=== PATIENT | male | born 1940 | race Caucasian/White ===

== ENCOUNTER 2018-05-08 13:00 | Outpatient (RCR) | payer OTHER, SELFPAY ==
[2018-04-10 13:38] VITALS: BP 120/80; BP 140/72; BP 140/78
--- NOTE | 2018-04-10 17:37 | PT.OIE ---
Current Diagnoses Other intervertebral disc degeneration, lumbar region (04/10/18) Low back pain (04/10/18) Past Medical History (Last Reviewed 12/19/17 @ 16:33 by Ramiro Upton MD) Benign prostatic hyperplasia (Acute) Coronary artery disease (Acute) Hyperlipidemia (Acute) Past Surgical History (Last Reviewed 12/19/17 @ 16:33 by Ramiro Upton MD) History of colonoscopy (Acute) History of heart bypass surgery (Acute ~2000) History of tonsillectomy (Acute) History of tonsillectomy (Resolved ~1945) Provider Visit Care Team Role Provider Type Saroj Malik MD Attending Provider Physician Family Provider Primary Care Provider Specialty: Internal Medicine Address: [address] [place] [address], [facility] Email: Physical Therapy Initial Evaluation PT-OP-A Visit Information Start: 04/06/18 16:07 Freq: Status: Active Protocol: Document 04/10/18 13:38 LRN (Rec: 04/10/18 15:03 LRN [id number]) Out-Patient Physical Therapy Visit Information Visit Information Visit Type Initial Evaluation Visit Start Time 13:38 Visit Stop Time 14:26 Total Visit Minutes 48 Visit Number 1 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 Depression Random dizziness (typically with sit to stand) PTSD PT-OP-B Current Condition Start: 04/06/18 16:07 Freq: Status: Active Protocol: Document 04/10/18 13:38 LRN (Rec: 04/10/18 15:03 LRN [id number]) Current Condition History of Current Condition Onset Date Chronic back pain, worsening 6 months ago Current Complaints Back pain limiting ability to stand and walk. History of Current Condition LBP for years. 1st injury in 1962 lifting injury. Injury to cervical spine in early 60s. Has had PT at [facility] 3 years ago, working on abdominal strengthening. No significant change with therapy. Within the last year, can't walk as far as he wants. Lately, within the last 6 month has been getting harder to walk farther than 300 yards, but on good days can walk a 1 mile. Currently under a tremendous amount of stress. Several years ago could walk 2-3 miles a couple times a week. Prior Treatments and Tests MRI for neck and low back [address] Padilla in [place]. Future Testing and Treatments Planned None Treatment Goals Patient/Caregiver Goals Pt goal is to be able to walk more to decrease weight and to sleep better. Walk painfree (hasn't been painfree for many years). Prior Functional Status Baseline Function- ADL's Modified Independent Baseline Function- Mobility Independent Baseline Function- Gait Sometimes limps due to L knee dysfunction sometimes. Baseline Function- Recreation/Hobbies Reads. Fishing off the beach. Sedentary. Baseline Function- Other Needs assist to get socks on. Current Functional Impairments (Reported) Functional Limitations- ADL's Can't bend over to put socks on. Functional Limitations- Mobility/Gait Walking 500 yards to maximum of 1 mile (on a good day). 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 Has an abdominal hernia. Admittedly under a lot of stress. CAD PT-OP-C Subjective Start: 04/06/18 16:07 Freq: Status: Active Protocol: Document 04/10/18 13:38 LRN (Rec: 04/10/18 15:03 LRN [id number]) Patient Questionnaires Oswestry Low Back Index Oswestry Score 22 Oswestry Impairment 20 to 39% Impaired (Score 20- 39) OP-PT Pain Assessment Pain Assessment Grid Paper Pain Assessment Grid Completed Yes Location Low back Pain Location Details Lumbar and upper Sacral Region Intensity 6 Scale Used Numeric (1 - 10) Description Aching Variations/Patterns Pain variable rating 1-6/10. Pain Aggravating Factors Standing Walking Bending Pain Alleviating Factors Sitting Rest Patient Stated Pain Goal Eliminate pain PT-OP-F Manual Assessment Start: 04/06/18 16:07 Freq: Status: Active Protocol: Document 04/10/18 13:38 LRN (Rec: 04/10/18 15:03 LRN [id number]) Manual Assessments Soft Tissue Assessment Soft Tissue Mobility Assessment Decreased mobility in low back Joint Mobility Assessment Joint Mobility Assessment Decreased lumbar mobility and hip mobility. PT-OP-H Neuro Start: 04/06/18 16:07 Freq: Status: Active Protocol: Document 04/10/18 13:38 LRN (Rec: 04/10/18 15:03 LRN [id number]) Sensation Evaluation Gross Sensation Gross Sensation WNL Deep Tendon Reflex & Clonus Assessment Deep Tendon Reflex Kanu Patellar & Achilles Deep Tendon Reflex 2+ Normal Vital Signs Blood Pressure Standing Blood Pressure (90/60-120/80 mmHg) 120/80 Blood Pressure Source Manual Cuff Right Upper Extremity Sitting Blood Pressure (90/60-120/80 mmHg) 140/72 H Blood Pressure Source Manual Cuff Right Upper Extremity Supine Blood Pressure (90/60-120/80 mmHg) 140/78 H Blood Pressure Source Manual Cuff Right Upper Extremity PT-OP-J Posture/Palpation/Skin Start: 04/06/18 16:07 Freq: Status: Active Protocol: Document 04/10/18 13:38 LRN (Rec: 04/10/18 15:03 LRN [id number]) Posture Evaluation Comments Posture Comments Standing Posture: Forward head, increased kyphosis and lordosis, anterior tilt of pelvis, moderate protruding abdomen. Pelvic R rotation, mildly elevated R shoulder. PT-OP-K Range of Motion Start: 04/06/18 16:07 Freq: Status: Active Protocol: Document 04/10/18 13:38 LRN (Rec: 04/10/18 15:03 LRN [id number]) Lumbar Spine Range of Motion Lumbar Spine Active Degrees Testing Position Standing Flexion 30 Extension 10 Lateral Flexion Left 13 Lateral Flexion Right 7 ROM Limitations Soft Tissue Tightness Pain Comments Hip flexion is 15 deg's with trunk flexion Hip extension is 5 deg's with trunk extension Hip Goniometric Range of Motion Hip Measured in Degrees Right Passive Hip ROM WFL No Straight Leg Raise 60 Internal Rotation 10 External Rotation 50 Left Passive Hip ROM WFL No Straight Leg Raise 55 Internal Rotation 10 External Rotation 60 PT-OP-M Strength Start: 04/06/18 16:07 Freq: Status: Active Protocol: Document 04/10/18 13:38 LRN (Rec: 04/10/18 15:03 LRN [id number]) Hip Strength Hip Manual Muscle Testing Right Flexion (L2) 5 Normal Left Flexion (L2) 5 Normal PT-OP-T Assessment and Plan Start: 04/06/18 16:07 Freq: Status: Active Protocol: Document 04/10/18 13:38 LRN (Rec: 04/10/18 15:03 LRN [id number]) Physical Therapy Assessment Rehab Potential Rehabilitation Potential Good Evaluation Complexity Number of Personal Factors/Comorbidities 3 or More Number of Body Systems Impaired 3 Clinical Presentation at Evaluation Evolving Impairments Impairments Activity Tolerance Gait Pain Posture ROM Soft Tissue Mobility Strength Other Concerns Barriers to Rehabilitation Non-union of sternum since 2001 Cardiac Bypass surgery. Depression. Prior physical therapy 3 yrs ago with no significant change in pain post therapy. Goals Decreased standing and walking Impairment 6/10 pain limits standing to make meals and walking his pet > 1/4 mile Short Term Goal (STG) Pt will be able to tolerate standing and making meals with compensatory strategy's. STG Duration 05/11/18 Associate Director Career Services Goal (LTG) Pt will be able to walk his pet 2x/week for greater than 1 /[address] with pain no greater than 3/10. LTG Duration 06/13/18 Decreased pain Impairment Pain limiting walking and standing tolerance, rated 1-6/ 10 Associate Director Career Services Goal (LTG) Decreased pt's pain at its worst by 50%. LTG Duration 06/13/18 Self care Impairment Pt lacks independent self assisted exercise program. Associate Director Career Services Goal (LTG) Pt will be independent with a self care HEP. LTG Duration 06/13/18 Assessment Summary Assessment Pt presents with a mechanical and soft tissue dysfunction of the lumbar spine and bilateral hip joints. He has a visible protrusion at the midline of the rectus abdominus indicating a possible abdominal hernia; therefore stabilization of the core will be more challenging . Limitation in hip mobility may be hindering his ability to walk and prolonging his low back rehabilitation. The pt demonstrates orthostatic hypotension with sit to stand, but not with supine to sit transfers; therefore cardiac conditioning is recommended. A referral to cardiac rehab would be appropriate. The pt will benefit from skilled physical therapy to improve hip and lumbar mobility, stengthen the core and improve pelvic and lumbar stability and decreased back pain with standing and gait. Physical Therapy Plan Frequency and Duration Frequency of Treatment 2x/Week Plan of Care Start Date 04/10/18 Plan of Care End Date 06/15/18 Therapeutic Interventions Therapeutic Interventions Aquatic Therapy Balance Training Gait Training Home Exercise Program Joint Mobilizations Manual Therapy Neuromuscular Re-education Patient/Caregiver Education Self-Care/Home Management Soft Tissue Mobilization Taping Therapeutic Activities Therapeutic Exercises Modalities Cold Pack/Ice Massage Electric Stimulation Hot Packs Ultrasound Other Referrals/Consults Referrals/Consults Recommended Cardiac rehabilitation Next Visit Focus/Plan Next Note Type Treatment Note Next Visit Plan Initiate gait on TM and progress per lumbar pain tolerance, start mobility program of low back and hips with precaution of his non- union of sternum; therefore limiting ex's in prone. Check hip strength and tolerance to core strengthening. End with STM or modalities for pain management. Might try manual lumbar traction for intermittent pain relief.
--- NOTE | 2018-04-12 14:55 | PT.OTN ---
Current Diagnoses Other intervertebral disc degeneration, lumbar region (04/12/18) Low back pain (04/12/18) Physical Therapy Treatment Note PT-OP-A Visit Information Start: 04/06/18 16:07 Freq: Status: Active Protocol: Document 04/12/18 13:45 AMB (Rec: 04/12/18 14:54 AMB [email or web address]) Out-Patient Physical Therapy Visit Information Visit Information Visit Type Treatment Note Visit Start Time 13:45 Visit Stop Time 14:40 Total Visit Minutes 55 Visit Number 2 PT-OP-B Current Condition Start: 04/06/18 16:07 Freq: Status: Active Protocol: Document 04/10/18 13:38 LRN (Rec: 04/10/18 15:03 LRN [id number]) Current Condition History of Current Condition Onset Date Chronic back pain, worsening 6 months ago Current Complaints Back pain limiting ability to stand and walk. History of Current Condition LBP for years. 1st injury in 2 lifting injury. Injury to cervical spine in early 's. Has had PT at [facility] 3 years ago, working on abdominal strengthening. No significant change with therapy. Within the last year, can't walk as far as he wants. Lately, within the last 6 month has been getting harder to walk farther than 300 yards, but on good days can walk a 1 mile. Currently under a tremendous amount of stress. Several years ago could walk 2-3 miles a couple times a week. Prior Treatments and Tests MRI for neck and low back [address] Padilla in [place]. Future Testing and Treatments Planned None Treatment Goals Patient/Caregiver Goals Pt goal is to be able to walk more to decrease weight and to sleep better. Walk painfree (hasn't been painfree for many years). Prior Functional Status Baseline Function- ADL's Modified Independent Baseline Function- Mobility Independent Baseline Function- Gait Sometimes limps due to L knee dysfunction sometimes. Baseline Function- Recreation/Hobbies Reads. Fishing off the beach. Sedentary. Baseline Function- Other Needs assist to get socks on. Current Functional Impairments (Reported) Functional Limitations- ADL's Can't bend over to put socks on. Functional Limitations- Mobility/Gait Walking 500 yards to maximum of 1 mile (on a good day). 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 Has an abdominal hernia. Admittedly under a lot of stress. CAD PT-OP-C Subjective Start: 04/06/18 16:07 Freq: Status: Active Protocol: Document 04/12/18 13:45 AMB (Rec: 04/12/18 14:54 AMB [id number]) OP-PT Subjective Patient Comments Patient Comments Lars states that some days are better than others, so far today is a good day, no back pain yet to speak of. PT-OP-F Manual Assessment Start: 04/06/18 16:07 Freq: Status: Active Protocol: Document 04/10/18 13:38 LRN (Rec: 04/10/18 15:03 LRN [id number]) Manual Assessments Soft Tissue Assessment Soft Tissue Mobility Assessment Decreased mobility in low back Joint Mobility Assessment Joint Mobility Assessment Decreased lumbar mobility and hip mobility. PT-OP-H Neuro Start: 04/06/18 16:07 Freq: Status: Active Protocol: Document 04/10/18 13:38 LRN (Rec: 04/10/18 15:03 LRN [id number]) Sensation Evaluation Gross Sensation Gross Sensation WNL Deep Tendon Reflex & Clonus Assessment Deep Tendon Reflex Kanu Patellar & Achilles Deep Tendon Reflex 2+ Normal Vital Signs Blood Pressure Standing Blood Pressure (90/60-120/80 mmHg) 120/80 Blood Pressure Source Manual Cuff Right Upper Extremity Sitting Blood Pressure (90/60-120/80 mmHg) 140/72 H Blood Pressure Source Manual Cuff Right Upper Extremity Supine Blood Pressure (90/60-120/80 mmHg) 140/78 H Blood Pressure Source Manual Cuff Right Upper Extremity PT-OP-J Posture/Palpation/Skin Start: 04/06/18 16:07 Freq: Status: Active Protocol: Document 04/10/18 13:38 LRN (Rec: 04/10/18 15:03 LRN [id number]) Posture Evaluation Comments Posture Comments Standing Posture: Forward head, increased kyphosis and lordosis, anterior tilt of pelvis, moderate protruding abdomen. Pelvic R rotation, mildly elevated R shoulder. PT-OP-K Range of Motion Start: 04/06/18 16:07 Freq: Status: Active Protocol: Document 04/10/18 13:38 LRN (Rec: 04/10/18 15:03 LRN [id number]) Lumbar Spine Range of Motion Lumbar Spine Active Degrees Testing Position Standing Flexion 30 Extension 10 Lateral Flexion Left 13 Lateral Flexion Right 7 ROM Limitations Soft Tissue Tightness Pain Comments Hip flexion is 15 deg's with trunk flexion Hip extension is 5 deg's with trunk extension Hip Goniometric Range of Motion Hip Measured in Degrees Right Passive Hip ROM WFL No Straight Leg Raise 60 Internal Rotation 10 External Rotation 50 Left Passive Hip ROM WFL No Straight Leg Raise 55 Internal Rotation 10 External Rotation 60 PT-OP-M Strength Start: 04/06/18 16:07 Freq: Status: Active Protocol: Document 04/10/18 13:38 LRN (Rec: 04/10/18 15:03 LRN [id number]) Hip Strength Hip Manual Muscle Testing Right Flexion (L2) 5 Normal Left Flexion (L2) 5 Normal PT-OP-Q Treatments Start: 04/06/18 16:07 Freq: Status: Active Protocol: Document 04/12/18 13:45 AMB (Rec: 04/12/18 14:54 AMB [email or web address]) Cardio Equipment Treadmill Duration (Minutes) 5 Speed 2.0 Incline 0 Therapeutic Exercises Supine Exercises 5 Supine Exercise Name SLR Reps/Minutes 2x5 Comments with TrA stabilization 4 Supine Exercise Name TrA stabilization Reps/Minutes 2x10 Comments with supine march 3 Supine Exercise Name piriformis stretch Reps/Minutes 30x2 2 Supine Exercise Name hip flexor stretch Reps/Minutes 30x2 1 Supine Exercise Name trunk rotation Reps/Minutes 30x2 Sidelying Exercises 1 Sidelying Exercise Name clamshell Reps/Minutes 2x10 Manual Therapy Treatment Soft Tissue Mobilization 1 Body Location L QL, L lumbar paraspinals Mobilization Type Myofascial Release Sustained Pressure Intensity/Depth Moderate Body Position Sidelying PT-OP-R Modalities Start: 04/06/18 16:07 Freq: Status: Active Protocol: Document 04/12/18 13:45 AMB (Rec: 04/12/18 14:55 AMB [id number]) Hot Pack/Cold Pack Treatment Hot Pack Location low back Patient Position Hooklying Treatment Duration (minutes) 15 Patient Tolerance Good PT-OP-T Assessment and Plan Start: 04/06/18 16:07 Freq: Status: Active Protocol: Document 04/12/18 13:45 AMB (Rec: 04/12/18 14:54 AMB [id number]) Physical Therapy Assessment Assessment Summary Assessment Pt tolerated exercises well. Did have significant tightness at L hip flexor. Tenderness at L paraspinals and L QL. Began education in standing weightshifting to avoid cramping. Began education in self myofascial release of QL with theracane or tennis ball. Physical Therapy Plan Next Visit Focus/Plan Next Note Type Treatment Note Next Visit Plan Progress treadmill, core stability, hip flexibility program. Continue with STM, can add in modalities. Can try manual lumbar traction.
--- NOTE | 2018-04-16 15:50 | PT.OTN ---
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 Depression Random dizziness (typically with sit to stand) PTSD PT-OP-B Current Condition Start: 04/06/18 16:07 Freq: Status: Active Protocol: Document 04/10/18 13:38 LRN (Rec: 04/10/18 15:03 LRN [id number]) Current Condition History of Current Condition Onset Date Chronic back pain, worsening 6 months ago Current Complaints Back pain limiting ability to stand and walk. History of Current Condition LBP for years. 1st injury in 1962 lifting injury. Injury to cervical spine in early 's. Has had PT at [facility] 3 years ago, working on abdominal strengthening. No significant change with therapy. Within the last year, can't walk as far as he wants. Lately, within the last 6 month has been getting harder to walk farther than 300 yards, but on good days can walk a 1 mile. Currently under a tremendous amount of stress. Several years ago could walk 2-3 miles a couple times a week. Prior Treatments and Tests MRI for neck and low back [address] Padilla in [place]. Future Testing and Treatments Planned None Treatment Goals Patient/Caregiver Goals Pt goal is to be able to walk more to decrease weight and to sleep better. Walk painfree (hasn't been painfree for many years). Prior Functional Status Baseline Function- ADL's Modified Independent Baseline Function- Mobility Independent Baseline Function- Gait Sometimes limps due to L knee dysfunction sometimes. Baseline Function- Recreation/Hobbies Reads. Fishing off the beach. Sedentary. Baseline Function- Other Needs assist to get socks on. Current Functional Impairments (Reported) Functional Limitations- ADL's Can't bend over to put socks on. Functional Limitations- Mobility/Gait Walking 500 yards to maximum of 1 mile (on a good day). 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 Has an abdominal hernia. Admittedly under a lot of stress. CAD PT-OP-C Subjective Start: 04/06/18 16:07 Freq: Status: Active Protocol: Document 04/16/18 09:51 LRN (Rec: 04/16/18 10:35 LRN [id number]) OP-PT Subjective Patient Comments Patient Comments Didn't have time to do ex's. Drove all day yesterday. PT-OP-F Manual Assessment Start: 04/06/18 16:07 Freq: Status: Active Protocol: Document 04/10/18 13:38 LRN (Rec: 04/10/18 15:03 LRN [id number]) Manual Assessments Soft Tissue Assessment Soft Tissue Mobility Assessment Decreased mobility in low back Joint Mobility Assessment Joint Mobility Assessment Decreased lumbar mobility and hip mobility. PT-OP-H Neuro Start: 04/06/18 16:07 Freq: Status: Active Protocol: Document 04/10/18 13:38 LRN (Rec: 04/10/18 15:03 LRN [id number]) Sensation Evaluation Gross Sensation Gross Sensation WNL Deep Tendon Reflex & Clonus Assessment Deep Tendon Reflex Kanu Patellar & Achilles Deep Tendon Reflex 2+ Normal Vital Signs Blood Pressure Standing Blood Pressure (90/60-120/80 mmHg) 120/80 Blood Pressure Source Manual Cuff Right Upper Extremity Sitting Blood Pressure (90/60-120/80 mmHg) 140/72 H Blood Pressure Source Manual Cuff Right Upper Extremity Supine Blood Pressure (90/60-120/80 mmHg) 140/78 H Blood Pressure Source Manual Cuff Right Upper Extremity PT-OP-J Posture/Palpation/Skin Start: 04/06/18 16:07 Freq: Status: Active Protocol: Document 04/10/18 13:38 LRN (Rec: 04/10/18 15:03 LRN [id number]) Posture Evaluation Comments Posture Comments Standing Posture: Forward head, increased kyphosis and lordosis, anterior tilt of pelvis, moderate protruding abdomen. Pelvic R rotation, mildly elevated R shoulder. PT-OP-K Range of Motion Start: 04/06/18 16:07 Freq: Status: Active Protocol: Document 04/10/18 13:38 LRN (Rec: 04/10/18 15:03 LRN [id number]) Lumbar Spine Range of Motion Lumbar Spine Active Degrees Testing Position Standing Flexion 30 Extension 10 Lateral Flexion Left 13 Lateral Flexion Right 7 ROM Limitations Soft Tissue Tightness Pain Comments Hip flexion is 15 deg's with trunk flexion Hip extension is 5 deg's with trunk extension Hip Goniometric Range of Motion Hip Measured in Degrees Right Passive Hip ROM WFL No Straight Leg Raise 60 Internal Rotation 10 External Rotation 50 Left Passive Hip ROM WFL No Straight Leg Raise 55 Internal Rotation 10 External Rotation 60 PT-OP-M Strength Start: 04/06/18 16:07 Freq: Status: Active Protocol: Document 04/10/18 13:38 LRN (Rec: 04/10/18 15:03 LRN [id number]) Hip Strength Hip Manual Muscle Testing Right Flexion (L2) 5 Normal Left Flexion (L2) 5 Normal PT-OP-Q Treatments Start: 04/06/18 16:07 Freq: Status: Active Protocol: Document 04/16/18 09:51 LRN (Rec: 04/16/18 10:35 LRN [id number]) Cardio Equipment Treadmill Duration (Minutes) 6 Speed 2.0 Incline 0 Therapeutic Exercises Supine Exercises Lateral hip Stretch Supine Exercise Name Lateral Hip stretch Side bilateral Reps/Minutes 60 x 1 Comments Extra time for training 5 Supine Exercise Name SLR Reps/Minutes 2x5 Comments with TrA stabilization 4 Supine Exercise Name TrA and abdominal stabilization Comments Training for TrA and abdominal holding 3 Supine Exercise Name piriformis stretch Reps/Minutes 60x2 2 Supine Exercise Name hip flexor stretch Side bilateral Reps/Minutes 7' Comments Each 60stretch followed by 10 reps active hip ext 1 Supine Exercise Name trunk rotation Reps/Minutes 30x2 Manual Therapy Treatment Soft Tissue Mobilization Intercostals of ribs Body Location Upper intercostals Intensity/Depth Deep Body Position Supine Neuro Re-Education Treatment Movement Re-Education Movement Re-education Activities Breathing for upper thoracic excursion. Self-Care/Home Management Treatment Education Patient Education Home Exercise Program Activities Self-Care/Home Management Activities Issued and reviewed HEP: Stretch in supine for Piriformis, Lateral hip & sitting hip ER PT-OP-R Modalities Start: 04/06/18 16:07 Freq: Status: Active Protocol: Document 04/12/18 13:45 AMB (Rec: 04/12/18 14:55 AMB [id number]) Hot Pack/Cold Pack Treatment Hot Pack Location low back Patient Position Hooklying Treatment Duration (minutes) 15 Patient Tolerance Good PT-OP-T Assessment and Plan Start: 04/06/18 16:07 Freq: Status: Active Protocol: Document 04/16/18 09:51 LRN (Rec: 04/16/18 10:35 LRN [id number]) Physical Therapy Assessment Goals Decreased standing and walking Impairment 6/10 LBP limits standing to make meals and walking his pet > 1/4 mile Short Term Goal (STG) Pt will be able to tolerate standing and making meals with compensatory strategy's. STG Duration 05/11/18 Regulatory Intern Goal (LTG) Pt will be able to walk his pet 2x/week for greater than 1 /[address] with LBP no greater than 3/10. LTG Duration 06/13/18 Decreased pain Impairment Low Back Pain limiting walking and standing tolerance, rated 1-6/10 Regulatory Intern Goal (LTG) Decreased pt's LBP at its worst by 50% (to 3/10). LTG Duration 06/13/18 Self care Impairment Pt lacks independent self snf exercise program. Senior Living Goal (LTG) Pt will be independent with a self care HEP. LTG Duration 06/13/18 Assessment Summary Assessment Fair recall of ex's, review needed. No mobility of upper thoracic ribcage with breathing. Minimal abdominal stabilization noted. Significant tightness at L hip flexor. Tenderness at L paraspinals and L QL. Physical Therapy Plan Frequency and Duration Frequency of Treatment 2x/Week Plan of Care Start Date 04/10/18 Plan of Care End Date 06/15/18 Next Visit Focus/Plan Next Note Type Treatment Note Next Visit Plan Began education in standing weightshifting to avoid cramping. Began education in self myofascial release of QL with theracane or tennis ball. Progress treadmill, core stability, hip flexibility program. Continue with STM, can add in modalities. Can try manual lumbar traction.
--- NOTE | 2018-04-20 15:02 | PT.OTN ---
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 Depression Random dizziness (typically with sit to stand) PTSD PT-OP-B Current Condition Start: 04/06/18 16:07 Freq: Status: Active Protocol: Document 04/10/18 13:38 LRN (Rec: 04/10/18 15:03 LRN [id number]) Current Condition History of Current Condition Onset Date Chronic back pain, worsening 6 months ago Current Complaints Back pain limiting ability to stand and walk. History of Current Condition LBP for years. 1st injury in 1962 lifting injury. Injury to cervical spine in early 's. Has had PT at [facility] 3 years ago, working on abdominal strengthening. No significant change with therapy. Within the last year, can't walk as far as he wants. Lately, within the last 6 month has been getting harder to walk farther than 300 yards, but on good days can walk a 1 mile. Currently under a tremendous amount of stress. Several years ago could walk 2-3 miles a couple times a week. Prior Treatments and Tests MRI for neck and low back [address] Padilla in [place]. Future Testing and Treatments Planned None Treatment Goals Patient/Caregiver Goals Pt goal is to be able to walk more to decrease weight and to sleep better. Walk painfree (hasn't been painfree for many years). Prior Functional Status Baseline Function- ADL's Modified Independent Baseline Function- Mobility Independent Baseline Function- Gait Sometimes limps due to L knee dysfunction sometimes. Baseline Function- Recreation/Hobbies Reads. Fishing off the beach. Sedentary. Baseline Function- Other Needs assist to get socks on. Current Functional Impairments (Reported) Functional Limitations- ADL's Can't bend over to put socks on. Functional Limitations- Mobility/Gait Walking 500 yards to maximum of 1 mile (on a good day). 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 Has an abdominal hernia. Admittedly under a lot of stress. CAD PT-OP-C Subjective Start: 04/06/18 16:07 Freq: Status: Active Protocol: Document 04/20/18 10:36 LRN (Rec: 04/20/18 11:21 LRN [id number]) OP-PT Subjective Patient Comments Patient Comments Had some difficulty with home ex's, has questions. One caused excruciating pain. States his stomach (abdominal hernia) bothers him and he'd like to get it fixed if it is a problem. OP-PT Pain Assessment Pain Assessment Grid Paper Pain Assessment Grid Completed No Location Low back Pain Location Details Lumbar and upper Sacral Region Intensity 3 Scale Used Numeric (1 - 10) Description Aching Pain Alleviating Factors Sitting PT-OP-F Manual Assessment Start: 04/06/18 16:07 Freq: Status: Active Protocol: Document 04/10/18 13:38 LRN (Rec: 04/10/18 15:03 LRN [id number]) Manual Assessments Soft Tissue Assessment Soft Tissue Mobility Assessment Decreased mobility in low back Joint Mobility Assessment Joint Mobility Assessment Decreased lumbar mobility and hip mobility. PT-OP-H Neuro Start: 04/06/18 16:07 Freq: Status: Active Protocol: Document 04/10/18 13:38 LRN (Rec: 04/10/18 15:03 LRN [id number]) Sensation Evaluation Gross Sensation Gross Sensation WNL Deep Tendon Reflex & Clonus Assessment Deep Tendon Reflex Kanu Patellar & Achilles Deep Tendon Reflex 2+ Normal Vital Signs Blood Pressure Standing Blood Pressure (90/60-120/80 mmHg) 120/80 Blood Pressure Source Manual Cuff Right Upper Extremity Sitting Blood Pressure (90/60-120/80 mmHg) 140/72 H Blood Pressure Source Manual Cuff Right Upper Extremity Supine Blood Pressure (90/60-120/80 mmHg) 140/78 H Blood Pressure Source Manual Cuff Right Upper Extremity PT-OP-J Posture/Palpation/Skin Start: 04/06/18 16:07 Freq: Status: Active Protocol: Document 04/10/18 13:38 LRN (Rec: 04/10/18 15:03 LRN [id number]) Posture Evaluation Comments Posture Comments Standing Posture: Forward head, increased kyphosis and lordosis, anterior tilt of pelvis, moderate protruding abdomen. Pelvic R rotation, mildly elevated R shoulder. PT-OP-K Range of Motion Start: 04/06/18 16:07 Freq: Status: Active Protocol: Document 04/10/18 13:38 LRN (Rec: 04/10/18 15:03 LRN [id number]) Lumbar Spine Range of Motion Lumbar Spine Active Degrees Testing Position Standing Flexion 30 Extension 10 Lateral Flexion Left 13 Lateral Flexion Right 7 ROM Limitations Soft Tissue Tightness Pain Comments Hip flexion is 15 deg's with trunk flexion Hip extension is 5 deg's with trunk extension Hip Goniometric Range of Motion Hip Measured in Degrees Right Passive Hip ROM WFL No Straight Leg Raise 60 Internal Rotation 10 External Rotation 50 Left Passive Hip ROM WFL No Straight Leg Raise 55 Internal Rotation 10 External Rotation 60 PT-OP-M Strength Start: 04/06/18 16:07 Freq: Status: Active Protocol: Document 04/10/18 13:38 LRN (Rec: 04/10/18 15:03 LRN [id number]) Hip Strength Hip Manual Muscle Testing Right Flexion (L2) 5 Normal Left Flexion (L2) 5 Normal PT-OP-Q Treatments Start: 04/06/18 16:07 Freq: Status: Active Protocol: Document 04/20/18 10:36 LRN (Rec: 04/20/18 11:21 LRN [id number]) Cardio Equipment Treadmill Duration (Minutes) 7 Speed 2.0 Incline 0 Therapeutic Exercises Supine Exercises Lateral hip Stretch Supine Exercise Name Lateral Hip stretch Side bilateral Reps/Minutes 60 x 1 Comments Extra time for review 5 Supine Exercise Name Heel slides Reps/Minutes 10x Comments Neutral spine stabilization 4 Supine Exercise Name TrA and abdominal stabilization Comments Training for TrA and abdominal holding 3 Supine Exercise Name piriformis stretch Reps/Minutes 60x2 2 Supine Exercise Name hip flexor stretch Side bilateral Reps/Minutes 7' Comments Each 60stretch followed by 10 reps active hip ext 1 Supine Exercise Name trunk rotation Reps/Minutes 30x2 Comments 10-20 deg's rotation only Sitting Exercises Hip ER stretch Sitting Exercise Name Hip ER stretch Side bilateral Reps/Minutes 3' Self-Care/Home Management Treatment Activities Self-Care/Home Management Activities Reviewed and modified HEP: LTR , supine single leg Piriformis PT-OP-R Modalities Start: 04/06/18 16:07 Freq: Status: Active Protocol: Document 04/12/18 13:45 AMB (Rec: 04/12/18 14:55 AMB [id number]) Hot Pack/Cold Pack Treatment Hot Pack Location low back Patient Position Hooklying Treatment Duration (minutes) 15 Patient Tolerance Good PT-OP-T Assessment and Plan Start: 04/06/18 16:07 Freq: Status: Active Protocol: Document 04/20/18 10:36 LRN (Rec: 04/20/18 11:21 LRN [id number]) Physical Therapy Assessment Assessment Summary Assessment A little better recall of ex's , but review needed. Pt moved too far with LTR ex causing L LBP and did not relax the L hip with ER oblique stretch; therefore causing hip muscle cramp. Needs mobility of upper thoracic ribcage with breathing. Improved awareness of how to stabilize in neutral spine. Tenderness at L paraspinals and L QL not assessed. Physical Therapy Plan Frequency and Duration Frequency of Treatment 2x/Week Plan of Care Start Date 04/10/18 Plan of Care End Date 06/15/18 Next Visit Focus/Plan Next Note Type Treatment Note Next Visit Plan Next visit if no further questions of HEP, began education in standing weightshifting to avoid cramping. Began education in self myofascial release of QL with theracane or tennis ball. Progress treadmill, core stability, hip flexibility program. Continue with STM, can add in modalities. Can try manual lumbar traction.
--- NOTE | 2018-04-23 11:53 | PT.OTN ---
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 Depression Random dizziness (typically with sit to stand) PTSD PT-OP-B Current Condition Start: 04/06/18 16:07 Freq: Status: Active Protocol: Document 04/10/18 13:38 LRN (Rec: 04/10/18 15:03 LRN [id number]) Current Condition History of Current Condition Onset Date Chronic back pain, worsening 6 months ago Current Complaints Back pain limiting ability to stand and walk. History of Current Condition LBP for years. 1st injury in 1962 lifting injury. Injury to cervical spine in early 's. Has had PT at [facility] 3 years ago, working on abdominal strengthening. No significant change with therapy. Within the last year, can't walk as far as he wants. Lately, within the last 6 month has been getting harder to walk farther than 300 yards, but on good days can walk a 1 mile. Currently under a tremendous amount of stress. Several years ago could walk 2-3 miles a couple times a week. Prior Treatments and Tests MRI for neck and low back [address] Padilla in [place]. Future Testing and Treatments Planned None Treatment Goals Patient/Caregiver Goals Pt goal is to be able to walk more to decrease weight and to sleep better. Walk painfree (hasn't been painfree for many years). Prior Functional Status Baseline Function- ADL's Modified Independent Baseline Function- Mobility Independent Baseline Function- Gait Sometimes limps due to L knee dysfunction sometimes. Baseline Function- Recreation/Hobbies Reads. Fishing off the beach. Sedentary. Baseline Function- Other Needs assist to get socks on. Current Functional Impairments (Reported) Functional Limitations- ADL's Can't bend over to put socks on. Functional Limitations- Mobility/Gait Walking 500 yards to maximum of 1 mile (on a good day). 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 Has an abdominal hernia. Admittedly under a lot of stress. CAD PT-OP-C Subjective Start: 04/06/18 16:07 Freq: Status: Active Protocol: Document 04/23/18 10:37 LRN (Rec: 04/23/18 11:36 LRN [id number]) OP-PT Subjective Patient Comments Patient Comments Walked 1/4 mile, wearing a low back belt over the weekend, both days. PT-OP-F Manual Assessment Start: 04/06/18 16:07 Freq: Status: Active Protocol: Document 04/10/18 13:38 LRN (Rec: 04/10/18 15:03 LRN [id number]) Manual Assessments Soft Tissue Assessment Soft Tissue Mobility Assessment Decreased mobility in low back Joint Mobility Assessment Joint Mobility Assessment Decreased lumbar mobility and hip mobility. PT-OP-H Neuro Start: 04/06/18 16:07 Freq: Status: Active Protocol: Document 04/10/18 13:38 LRN (Rec: 04/10/18 15:03 LRN [id number]) Sensation Evaluation Gross Sensation Gross Sensation WNL Deep Tendon Reflex & Clonus Assessment Deep Tendon Reflex Kanu Patellar & Achilles Deep Tendon Reflex 2+ Normal Vital Signs Blood Pressure Standing Blood Pressure (90/60-120/80 mmHg) 120/80 Blood Pressure Source Manual Cuff Right Upper Extremity Sitting Blood Pressure (90/60-120/80 mmHg) 140/72 H Blood Pressure Source Manual Cuff Right Upper Extremity Supine Blood Pressure (90/60-120/80 mmHg) 140/78 H Blood Pressure Source Manual Cuff Right Upper Extremity PT-OP-J Posture/Palpation/Skin Start: 04/06/18 16:07 Freq: Status: Active Protocol: Document 04/10/18 13:38 LRN (Rec: 04/10/18 15:03 LRN [id number]) Posture Evaluation Comments Posture Comments Standing Posture: Forward head, increased kyphosis and lordosis, anterior tilt of pelvis, moderate protruding abdomen. Pelvic R rotation, mildly elevated R shoulder. PT-OP-K Range of Motion Start: 04/06/18 16:07 Freq: Status: Active Protocol: Document 04/10/18 13:38 LRN (Rec: 04/10/18 15:03 LRN [id number]) Lumbar Spine Range of Motion Lumbar Spine Active Degrees Testing Position Standing Flexion 30 Extension 10 Lateral Flexion Left 13 Lateral Flexion Right 7 ROM Limitations Soft Tissue Tightness Pain Comments Hip flexion is 15 deg's with trunk flexion Hip extension is 5 deg's with trunk extension Hip Goniometric Range of Motion Hip Measured in Degrees Right Passive Hip ROM WFL No Straight Leg Raise 60 Internal Rotation 10 External Rotation 50 Left Passive Hip ROM WFL No Straight Leg Raise 55 Internal Rotation 10 External Rotation 60 PT-OP-M Strength Start: 04/06/18 16:07 Freq: Status: Active Protocol: Document 04/10/18 13:38 LRN (Rec: 04/10/18 15:03 LRN [id number]) Hip Strength Hip Manual Muscle Testing Right Flexion (L2) 5 Normal Left Flexion (L2) 5 Normal PT-OP-Q Treatments Start: 04/06/18 16:07 Freq: Status: Active Protocol: Document 04/23/18 10:37 LRN (Rec: 04/23/18 11:36 LRN [id number]) Cardio Equipment Treadmill Duration (Minutes) 9 Speed 2.0 Incline 0 Therapeutic Exercises Supine Exercises Lateral hip Stretch Supine Exercise Name Lateral Hip stretch Side bilateral Reps/Minutes 60 x 1 5 Supine Exercise Name Heel slides Reps/Minutes 10x Comments Neutral spine stabilization 4 Supine Exercise Name TrA and abdominal stab with hands/knees push Equipment Used Red T-Ball Reps/Minutes 7' Comments Pt unable to identify a TA contraction after much training 3 Supine Exercise Name piriformis stretch Reps/Minutes 60x2 2 Supine Exercise Name hip flexor stretch Side bilateral Reps/Minutes 4' Comments Each 60stretch followed by 10 reps active hip ext Sitting Exercises TA strengthening Sitting Exercise Name Isometric strengthening (knees push into table) Side bilateral Reps/Minutes 5' Therapeutic Activity Therapeutic Activity Supine <> Sit Name Transfer training sup<>sit Reps/Minutes 2' Self-Care/Home Management Treatment Education Other Education Pt education in how to identify an abdominal contraction vs abdominal bulging. Activities Self-Care/Home Management Activities I/S pt to do isometric TA tightening in sitting. PT-OP-R Modalities Start: 04/06/18 16:07 Freq: Status: Active Protocol: Document 04/12/18 13:45 AMB (Rec: 04/12/18 14:55 AMB [id number]) Hot Pack/Cold Pack Treatment Hot Pack Location low back Patient Position Hooklying Treatment Duration (minutes) 15 Patient Tolerance Good PT-OP-T Assessment and Plan Start: 04/06/18 16:07 Freq: Status: Active Protocol: Document 04/23/18 10:37 LRN (Rec: 04/23/18 11:36 LRN [id number]) Physical Therapy Assessment Goals Decreased standing and walking Impairment 6/10 LBP limits standing to make meals and walking his pet > 1/4 mile Short Term Goal (STG) Pt will be able to tolerate standing and making meals with compensatory strategy's. STG Duration 05/11/18 Clerk Travel Reservations Goal (LTG) Pt will be able to walk his pet 2x/week for greater than 1 /[address] with LBP no greater than 3/10. LTG Duration 06/13/18 Decreased pain Impairment Low Back Pain limiting walking and standing tolerance, rated 1-6/10 Residential Goal (LTG) Decreased pt's LBP at its worst by 50% (to 3/10). LTG Duration 06/13/18 Self care Impairment Pt lacks independent self usp exercise program. Residential Goal (LTG) Pt will be independent with a self care HEP. LTG Duration 06/13/18 Progress Towards Goals Progress Comments Pt tolerance to walking has improved per subjective report he is walking 1/4 mile for past 2 days. Assessment Summary Assessment Better recall of ex's, some review needed. Muscle cramp x 1 with stretch to L hip. Pt is more aware he needs to improve mobility of upper thoracic ribcage with breathing. Much improved awareness of how to stabilize in neutral spine. Tenderness at L paraspinals and L QL not assessed. Physical Therapy Plan Frequency and Duration Frequency of Treatment 2x/Week Plan of Care Start Date 04/10/18 Plan of Care End Date 06/15/18 Next Visit Focus/Plan Next Note Type Treatment Note Next Visit Plan Assess L Paraspinals & QL, began education in standing weightshifting to avoid cramping & in self myofascial release of QL with theracane or tennis ball. Progress treadmill to 10', progress core stability (add rotation with T-Band), continue hip flexibility (focus on hip ext & ER) program. Add STM if needed. Can try manual lumbar traction when back pain interferes with exercise tolerance.
--- NOTE | 2018-04-26 13:29 | PT.OTN ---
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 Depression Random dizziness (typically with sit to stand) PTSD PT-OP-B Current Condition Start: 04/06/18 16:07 Freq: Status: Active Protocol: Document 04/10/18 13:38 LRN (Rec: 04/10/18 15:03 LRN [id number]) Current Condition History of Current Condition Onset Date Chronic back pain, worsening 6 months ago Current Complaints Back pain limiting ability to stand and walk. History of Current Condition LBP for years. 1st injury in 1962 lifting injury. Injury to cervical spine in early 's. Has had PT at [facility] 3 years ago, working on abdominal strengthening. No significant change with therapy. Within the last year, can't walk as far as he wants. Lately, within the last 6 month has been getting harder to walk farther than 300 yards, but on good days can walk a 1 mile. Currently under a tremendous amount of stress. Several years ago could walk 2-3 miles a couple times a week. Prior Treatments and Tests MRI for neck and low back [address] Padilla in [place]. Future Testing and Treatments Planned None Treatment Goals Patient/Caregiver Goals Pt goal is to be able to walk more to decrease weight and to sleep better. Walk painfree (hasn't been painfree for many years). Prior Functional Status Baseline Function- ADL's Modified Independent Baseline Function- Mobility Independent Baseline Function- Gait Sometimes limps due to L knee dysfunction sometimes. Baseline Function- Recreation/Hobbies Reads. Fishing off the beach. Sedentary. Baseline Function- Other Needs assist to get socks on. Current Functional Impairments (Reported) Functional Limitations- ADL's Can't bend over to put socks on. Functional Limitations- Mobility/Gait Walking 500 yards to maximum of 1 mile (on a good day). 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 Has an abdominal hernia. Admittedly under a lot of stress. CAD PT-OP-C Subjective Start: 04/06/18 16:07 Freq: Status: Active Protocol: Document 04/26/18 10:38 LRN (Rec: 04/26/18 11:21 LRN [id number]) OP-PT Subjective Patient Comments Patient Comments Pain in the R low back ~L3 level and at TP location. Pain is deep and constant, if move just right it is sharp. Started [place] ( 20' up and back). PT-OP-F Manual Assessment Start: 04/06/18 16:07 Freq: Status: Active Protocol: Document 04/10/18 13:38 LRN (Rec: 04/10/18 15:03 LRN [id number]) Manual Assessments Soft Tissue Assessment Soft Tissue Mobility Assessment Decreased mobility in low back Joint Mobility Assessment Joint Mobility Assessment Decreased lumbar mobility and hip mobility. PT-OP-H Neuro Start: 04/06/18 16:07 Freq: Status: Active Protocol: Document 04/10/18 13:38 LRN (Rec: 04/10/18 15:03 LRN [id number]) Sensation Evaluation Gross Sensation Gross Sensation WNL Deep Tendon Reflex & Clonus Assessment Deep Tendon Reflex Kanu Patellar & Achilles Deep Tendon Reflex 2+ Normal Vital Signs Blood Pressure Standing Blood Pressure (90/60-120/80 mmHg) 120/80 Blood Pressure Source Manual Cuff Right Upper Extremity Sitting Blood Pressure (90/60-120/80 mmHg) 140/72 H Blood Pressure Source Manual Cuff Right Upper Extremity Supine Blood Pressure (90/60-120/80 mmHg) 140/78 H Blood Pressure Source Manual Cuff Right Upper Extremity PT-OP-J Posture/Palpation/Skin Start: 04/06/18 16:07 Freq: Status: Active Protocol: Document 04/10/18 13:38 LRN (Rec: 04/10/18 15:03 LRN [id number]) Posture Evaluation Comments Posture Comments Standing Posture: Forward head, increased kyphosis and lordosis, anterior tilt of pelvis, moderate protruding abdomen. Pelvic R rotation, mildly elevated R shoulder. PT-OP-K Range of Motion Start: 04/06/18 16:07 Freq: Status: Active Protocol: Document 04/10/18 13:38 LRN (Rec: 04/10/18 15:03 LRN [id number]) Lumbar Spine Range of Motion Lumbar Spine Active Degrees Testing Position Standing Flexion 30 Extension 10 Lateral Flexion Left 13 Lateral Flexion Right 7 ROM Limitations Soft Tissue Tightness Pain Comments Hip flexion is 15 deg's with trunk flexion Hip extension is 5 deg's with trunk extension Hip Goniometric Range of Motion Hip Measured in Degrees Right Passive Hip ROM WFL No Straight Leg Raise 60 Internal Rotation 10 External Rotation 50 Left Passive Hip ROM WFL No Straight Leg Raise 55 Internal Rotation 10 External Rotation 60 PT-OP-M Strength Start: 04/06/18 16:07 Freq: Status: Active Protocol: Document 04/10/18 13:38 LRN (Rec: 04/10/18 15:03 LRN [id number]) Hip Strength Hip Manual Muscle Testing Right Flexion (L2) 5 Normal Left Flexion (L2) 5 Normal PT-OP-Q Treatments Start: 04/06/18 16:07 Freq: Status: Active Protocol: Document 04/26/18 10:38 LRN (Rec: 04/26/18 11:21 LRN [id number]) Cardio Equipment Treadmill Duration (Minutes) 10 Speed 1.8 Incline 0 Therapeutic Exercises Standing Exercises Trunk flex Standing Exercise Name 15-20 deg forward bend Resistance Two Lev 2 T-Band Reps/Minutes 10x Trunk rotation strengthening Standing Exercise Name Isometric: Wood chop without trunk rotation Side bilateral Resistance Lev 1 T-Band Reps/Minutes 15x Lateral trunk strengthening Standing Exercise Name Step outs Side bilateral Resistance Lev 2 T-Band Reps/Minutes 20x Manual Therapy Treatment Soft Tissue Mobilization 1 Body Location R QL, R lumbar paraspinals Mobilization Type Myofascial Release Strumming Sustained Pressure Intensity/Depth Moderate Body Position Sidelying Comments STM in area of L1-L5 Facet to lateral trunk. PT-OP-R Modalities Start: 04/06/18 16:07 Freq: Status: Active Protocol: Document 04/12/18 13:45 AMB (Rec: 04/12/18 14:55 AMB [id number]) Hot Pack/Cold Pack Treatment Hot Pack Location low back Patient Position Hooklying Treatment Duration (minutes) 15 Patient Tolerance Good PT-OP-T Assessment and Plan Start: 04/06/18 16:07 Freq: Status: Active Protocol: Document 04/26/18 10:38 LRN (Rec: 04/26/18 11:21 LRN [id number]) Physical Therapy Assessment Assessment Summary Assessment Pt had some relief after STM although general discomfort persisted. Pt chose to go home to use heat and was instructed to seek further medical attention if pain worsens after use of heat. No complaints of cramps, just reports of tightness, possibly due to limited exercise today . Much improved awareness of how to stabilize into neutral spine. Tenderness at L paraspinals and L QL not assessed due time taken for treatment of R lateral low back pain, possibly from R facet and Costovertebral joint pain . Physical Therapy Plan Frequency and Duration Frequency of Treatment 2x/Week Plan of Care Start Date 04/10/18 Plan of Care End Date 06/15/18 Next Visit Focus/Plan Next Note Type Treatment Note Next Visit Plan Assess L Paraspinals & QL, began education in standing weightshifting to avoid cramping & in self myofascial release of QL with theracane or tennis ball. Progress gait to outdoors for self care; progress core stability (add rotation with T-Band if tolerated), continue hip flexibility (focus on hip ext & ER) program. STM to R low back if needed. Can try manual lumbar traction if back pain interfering with ex.
--- NOTE | 2018-04-30 15:54 | PT.OTN ---
Current Diagnoses Other intervertebral disc degeneration, lumbar region (04/30/18) Low back pain (04/30/18) Physical Therapy Treatment Note PT-OP-A Visit Information Start: 04/06/18 16:07 Freq: Status: Active Protocol: Document 04/30/18 10:32 LRN (Rec: 04/30/18 11:15 LRN [id number]) Out-Patient Physical Therapy Visit Information Visit Information Visit Type Treatment Note Visit Start Time 10:32 Visit Stop Time 11:14 Total Visit Minutes 42 Visit Number 7 Number of CUSTODIAL MANAGER Visits 0 Evaluation Information Evaluation Date 04/10/18 PT-OP-B Current Condition Start: 04/06/18 16:07 Freq: Status: Active Protocol: Document 04/10/18 13:38 LRN (Rec: 04/10/18 15:03 LRN [id number]) Current Condition History of Current Condition Onset Date Chronic back pain, worsening 6 months ago Current Complaints Back pain limiting ability to stand and walk. History of Current Condition LBP for years. 1st injury in 1961 lifting injury. Injury to cervical spine in early s. Has had PT at [facility] 3 years ago, working on abdominal strengthening. No significant change with therapy. Within the last year, can't walk as far as he wants. Lately, within the last 6 month has been getting harder to walk farther than 300 yards, but on good days can walk a 1 mile. Currently under a tremendous amount of stress. Several years ago could walk 2-3 miles a couple times a week. Prior Treatments and Tests MRI for neck and low back [address] Padilla in [place]. Future Testing and Treatments Planned None Treatment Goals Patient/Caregiver Goals Pt goal is to be able to walk more to decrease weight and to sleep better. Walk painfree (hasn't been painfree for many years). Prior Functional Status Baseline Function- ADL's Modified Independent Baseline Function- Mobility Independent Baseline Function- Gait Sometimes limps due to L knee dysfunction sometimes. Baseline Function- Recreation/Hobbies Reads. Fishing off the beach. Sedentary. Baseline Function- Other Needs assist to get socks on. Current Functional Impairments (Reported) Functional Limitations- ADL's Can't bend over to put socks on. Functional Limitations- Mobility/Gait Walking 500 yards to maximum of 1 mile (on a good day). 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 Has an abdominal hernia. Admittedly under a lot of stress. CAD PT-OP-C Subjective Start: 04/06/18 16:07 Freq: Status: Active Protocol: Document 04/30/18 10:32 LRN (Rec: 04/30/18 11:15 LRN [id number]) OP-PT Subjective Patient Comments Patient Comments Hurting more on the R LB, haven't slept well. Don't know what could have set it off. PT-OP-F Manual Assessment Start: 04/06/18 16:07 Freq: Status: Active Protocol: Document 04/10/18 13:38 LRN (Rec: 04/10/18 15:03 LRN [id number]) Manual Assessments Soft Tissue Assessment Soft Tissue Mobility Assessment Decreased mobility in low back Joint Mobility Assessment Joint Mobility Assessment Decreased lumbar mobility and hip mobility. PT-OP-H Neuro Start: 04/06/18 16:07 Freq: Status: Active Protocol: Document 04/10/18 13:38 LRN (Rec: 04/10/18 15:03 LRN [id number]) Sensation Evaluation Gross Sensation Gross Sensation WNL Deep Tendon Reflex & Clonus Assessment Deep Tendon Reflex Kaun Patellar & Achilles Deep Tendon Reflex 2+ Normal Vital Signs Blood Pressure Standing Blood Pressure (90/60-120/80 mmHg) 120/80 Blood Pressure Source Manual Cuff Right Upper Extremity Sitting Blood Pressure (90/60-120/80 mmHg) 140/72 H Blood Pressure Source Manual Cuff Right Upper Extremity Supine Blood Pressure (90/60-120/80 mmHg) 140/78 H Blood Pressure Source Manual Cuff Right Upper Extremity PT-OP-J Posture/Palpation/Skin Start: 04/06/18 16:07 Freq: Status: Active Protocol: Document 04/10/18 13:38 LRN (Rec: 04/10/18 15:03 LRN [id number]) Posture Evaluation Comments Posture Comments Standing Posture: Forward head, increased kyphosis and lordosis, anterior tilt of pelvis, moderate protruding abdomen. Pelvic R rotation, mildly elevated R shoulder. PT-OP-K Range of Motion Start: 04/06/18 16:07 Freq: Status: Active Protocol: Document 04/10/18 13:38 LRN (Rec: 04/10/18 15:03 LRN [id number]) Lumbar Spine Range of Motion Lumbar Spine Active Degrees Testing Position Standing Flexion 30 Extension 10 Lateral Flexion Left 13 Lateral Flexion Right 7 ROM Limitations Soft Tissue Tightness Pain Comments Hip flexion is 15 deg's with trunk flexion Hip extension is 5 deg's with trunk extension Hip Goniometric Range of Motion Hip Measured in Degrees Right Passive Hip ROM WFL No Straight Leg Raise 60 Internal Rotation 10 External Rotation 50 Left Passive Hip ROM WFL No Straight Leg Raise 55 Internal Rotation 10 External Rotation 60 PT-OP-M Strength Start: 04/06/18 16:07 Freq: Status: Active Protocol: Document 04/10/18 13:38 LRN (Rec: 04/10/18 15:03 LRN [id number]) Hip Strength Hip Manual Muscle Testing Right Flexion (L2) 5 Normal Left Flexion (L2) 5 Normal PT-OP-Q Treatments Start: 04/06/18 16:07 Freq: Status: Active Protocol: Document 04/30/18 10:32 LRN (Rec: 04/30/18 11:15 LRN [id number]) Therapeutic Exercises Supine Exercises Lateral hip Stretch Supine Exercise Name Lateral Hip stretch Side bilateral Reps/Minutes 60 x 1 4 Supine Exercise Name TrA and abdominal stab with hands/knees push Equipment Used Small Red T-Ball Reps/Minutes 8' 2 Supine Exercise Name hip flexor stretch Side bilateral Reps/Minutes 4' Comments Each 60stretch followed by 10 reps active hip ext Manual Therapy Treatment Soft Tissue Mobilization Intercostals of ribs Body Location Upper & mid intercostals Mobilization Type Sustained Pressure Trigger Point Release Intensity/Depth Deep Body Position Supine Comments Extra time taken for intercostal bilaterally followed by MFR stretching with deep breathing. 1 Body Location R QL, R lumbar paraspinals Mobilization Type Myofascial Release Strumming Sustained Pressure Intensity/Depth Moderate Body Position Sidelying Comments STM in area of Right T7-L5 Facet to lateral trunk. Neuro Re-Education Treatment Movement Re-Education Movement Re-education Activities Breathing for upper thoracic excursion. PT-OP-R Modalities Start: 04/06/18 16:07 Freq: Status: Active Protocol: Document 04/12/18 13:45 AMB (Rec: 04/12/18 14:55 AMB [id number]) Hot Pack/Cold Pack Treatment Hot Pack Location low back Patient Position Hooklying Treatment Duration (minutes) 15 Patient Tolerance Good PT-OP-T Assessment and Plan Start: 04/06/18 16:07 Freq: Status: Active Protocol: Document 04/30/18 10:32 LRN (Rec: 04/30/18 11:15 LRN [id number]) Physical Therapy Assessment Goals Decreased standing and walking Impairment 6/10 LBP limits standing to make meals and walking his pet > 1/4 mile Short Term Goal (STG) Pt will be able to tolerate standing and making meals with compensatory strategy's. STG Duration 05/11/18 Blind Eyeletter Goal (LTG) Pt will be able to walk his pet 2x/week for greater than 1 /[address] with LBP no greater than 3/10. LTG Duration 06/13/18 Decreased pain Impairment Low Back Pain limiting walking and standing tolerance, rated 1-6/10 Shelter Goal (LTG) Decreased pt's LBP at its worst by 50% (to 3/10). LTG Duration 06/13/18 Self care Impairment Pt lacks independent self usp exercise program. Shelter Goal (LTG) Pt will be independent with a self care HEP. LTG Duration 06/13/18 Assessment Summary Assessment Improved ability to breath with movement of the upper chest. Pt was having R mid> low back pain today with no complaints of L low back pain. General discomfort in the R mid to low back persisted after treatment. Pt chose to go home to use ice. No complaints of cramps, just reports of tightness. Able to palpate TA contraction with stabilization ex today. Overall trunk mobility was improved but tenderness at R. T6 and L/S Facet joint region did not improve with STM. . Physical Therapy Plan Frequency and Duration Frequency of Treatment 2x/Week Plan of Care Start Date 04/10/18 Plan of Care End Date 06/15/18 Next Visit Focus/Plan Next Note Type Treatment Note Next Visit Plan Check R mid>low back pain resolution. , began education in standing weightshifting to avoid cramping & in self myofascial release of QL with theracane or tennis ball. Progress gait to outdoors for self care; progress core stability (add rotation with T-Band if tolerated), continue hip flexibility (focus on hip ext & ER) program. STM to R low back if needed. Can try manual lumbar traction if back pain interfering with ex.
--- NOTE | 2018-05-03 12:25 | PT.OTN ---
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 Depression Random dizziness (typically with sit to stand) PTSD PT-OP-B Current Condition Start: 04/06/18 16:07 Freq: Status: Active Protocol: Document 04/10/18 13:38 LRN (Rec: 04/10/18 15:03 LRN [id number]) Current Condition History of Current Condition Onset Date Chronic back pain, worsening 6 months ago Current Complaints Back pain limiting ability to stand and walk. History of Current Condition LBP for years. 1st injury in 1962 lifting injury. Injury to cervical spine in early 's. Has had PT at [facility] 3 years ago, working on abdominal strengthening. No significant change with therapy. Within the last year, can't walk as far as he wants. Lately, within the last 6 month has been getting harder to walk farther than 300 yards, but on good days can walk a 1 mile. Currently under a tremendous amount of stress. Several years ago could walk 2-3 miles a couple times a week. Prior Treatments and Tests MRI for neck and low back [address] Padilla in [place]. Future Testing and Treatments Planned None Treatment Goals Patient/Caregiver Goals Pt goal is to be able to walk more to decrease weight and to sleep better. Walk painfree (hasn't been painfree for many years). Prior Functional Status Baseline Function- ADL's Modified Independent Baseline Function- Mobility Independent Baseline Function- Gait Sometimes limps due to L knee dysfunction sometimes. Baseline Function- Recreation/Hobbies Reads. Fishing off the beach. Sedentary. Baseline Function- Other Needs assist to get socks on. Current Functional Impairments (Reported) Functional Limitations- ADL's Can't bend over to put socks on. Functional Limitations- Mobility/Gait Walking 500 yards to maximum of 1 mile (on a good day). 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 Has an abdominal hernia. Admittedly under a lot of stress. CAD PT-OP-C Subjective Start: 04/06/18 16:07 Freq: Status: Active Protocol: Document 05/03/18 11:18 LRN (Rec: 05/03/18 12:23 LRN [id number]) OP-PT Subjective Patient Comments Patient Comments Had eye laser surgery yesterday. States he has been doing hot/cold at home and the back is almost normal. Saw TOM Jacome and was told probably not the kidney because no other kidney symptoms. PT-OP-F Manual Assessment Start: 04/06/18 16:07 Freq: Status: Active Protocol: Document 04/10/18 13:38 LRN (Rec: 04/10/18 15:03 LRN [id number]) Manual Assessments Soft Tissue Assessment Soft Tissue Mobility Assessment Decreased mobility in low back Joint Mobility Assessment Joint Mobility Assessment Decreased lumbar mobility and hip mobility. PT-OP-H Neuro Start: 04/06/18 16:07 Freq: Status: Active Protocol: Document 04/10/18 13:38 LRN (Rec: 04/10/18 15:03 LRN [id number]) Sensation Evaluation Gross Sensation Gross Sensation WNL Deep Tendon Reflex & Clonus Assessment Deep Tendon Reflex Kanu Patellar & Achilles Deep Tendon Reflex 2+ Normal Vital Signs Blood Pressure Standing Blood Pressure (90/60-120/80 mmHg) 120/80 Blood Pressure Source Manual Cuff Right Upper Extremity Sitting Blood Pressure (90/60-120/80 mmHg) 140/72 H Blood Pressure Source Manual Cuff Right Upper Extremity Supine Blood Pressure (90/60-120/80 mmHg) 140/78 H Blood Pressure Source Manual Cuff Right Upper Extremity PT-OP-J Posture/Palpation/Skin Start: 04/06/18 16:07 Freq: Status: Active Protocol: Document 04/10/18 13:38 LRN (Rec: 04/10/18 15:03 LRN [id number]) Posture Evaluation Comments Posture Comments Standing Posture: Forward head, increased kyphosis and lordosis, anterior tilt of pelvis, moderate protruding abdomen. Pelvic R rotation, mildly elevated R shoulder. PT-OP-K Range of Motion Start: 04/06/18 16:07 Freq: Status: Active Protocol: Document 04/10/18 13:38 LRN (Rec: 04/10/18 15:03 LRN [id number]) Lumbar Spine Range of Motion Lumbar Spine Active Degrees Testing Position Standing Flexion 30 Extension 10 Lateral Flexion Left 13 Lateral Flexion Right 7 ROM Limitations Soft Tissue Tightness Pain Comments Hip flexion is 15 deg's with trunk flexion Hip extension is 5 deg's with trunk extension Hip Goniometric Range of Motion Hip Measured in Degrees Right Passive Hip ROM WFL No Straight Leg Raise 60 Internal Rotation 10 External Rotation 50 Left Passive Hip ROM WFL No Straight Leg Raise 55 Internal Rotation 10 External Rotation 60 PT-OP-M Strength Start: 04/06/18 16:07 Freq: Status: Active Protocol: Document 04/10/18 13:38 LRN (Rec: 04/10/18 15:03 LRN [id number]) Hip Strength Hip Manual Muscle Testing Right Flexion (L2) 5 Normal Left Flexion (L2) 5 Normal PT-OP-Q Treatments Start: 04/06/18 16:07 Freq: Status: Active Protocol: Document 05/03/18 11:18 LRN (Rec: 05/03/18 12:23 LRN [id number]) Cardio Equipment Treadmill Duration (Minutes) 10 Speed 1.8 Incline 0 Therapeutic Exercises Supine Exercises Lateral hip Stretch Supine Exercise Name Lateral Hip stretch Side bilateral Reps/Minutes 60 x 1 5 Supine Exercise Name Heel slides 4 Supine Exercise Name TA hold with hands/knees push Equipment Used Small Red T-Ball Reps/Minutes 8' 3 Supine Exercise Name piriformis stretch Reps/Minutes 60x1 2 Supine Exercise Name hip flexor stretch Side bilateral Reps/Minutes 4' Comments Each 60stretch followed by 10 reps active hip ext Standing Exercises Weight shifting Standing Exercise Name Lateral hip shift Side bilateral Comments No cramping in LE's Hanstring/LE neural stretch Standing Exercise Name Foot on step for hold stretch f/b 10 x ankle pumps Side bilateral Trunk rotation strengthening Standing Exercise Name Active Wood chop motion Side bilateral Reps/Minutes 15x Self-Care/Home Management Treatment Education Patient Education Home Exercise Program Activities Self-Care/Home Management Activities Issued and reviewed HEP of LE Hamstring/neural stretch and written I/S of standing weight shift and active wood chop motion. PT-OP-R Modalities Start: 04/06/18 16:07 Freq: Status: Active Protocol: Document 04/12/18 13:45 AMB (Rec: 04/12/18 14:55 AMB [id number]) Hot Pack/Cold Pack Treatment Hot Pack Location low back Patient Position Hooklying Treatment Duration (minutes) 15 Patient Tolerance Good PT-OP-T Assessment and Plan Start: 04/06/18 16:07 Freq: Status: Active Protocol: Document 05/03/18 11:18 LRN (Rec: 05/03/18 12:23 LRN [id number]) Physical Therapy Assessment Goals Decreased standing and walking Impairment 6/10 LBP limits standing to make meals and walking his pet > 1/4 mile Short Term Goal (STG) Pt will be able to tolerate standing and making meals with compensatory strategy's. STG Duration 05/11/18 Software Quality Test Engineer Goal (LTG) Pt will be able to walk his pet 2x/week for greater than 1 /[address] with LBP no greater than 3/10. LTG Duration 06/13/18 Decreased pain Impairment Low Back Pain limiting walking and standing tolerance, rated 1-6/10 Senior Care Goal (LTG) Decreased pt's LBP at its worst by 50% (to 3/10). LTG Duration 06/13/18 Self care Impairment Pt lacks independent self nursing home exercise program. Senior Care Goal (LTG) Pt will be independent with a self care HEP. LTG Duration 06/13/18 Assessment Summary Assessment Minimal movement of the upper chest is palpable with chest breathing ex, but pt needed v. cuing. No complaints of cramps, just reports of tightness on R lateral trunk. Able to palpate TA contraction with stabilization ex, but pt not able to maintain contraction with breathing. No pain with active trunk rotation. Pt did not need self myofascial release of QL with theracane or tennis ball. Physical Therapy Plan Frequency and Duration Frequency of Treatment 2x/Week Plan of Care Start Date 04/10/18 Plan of Care End Date 06/15/18 Next Visit Focus/Plan Next Note Type Treatment Note Next Visit Plan Progress gait to outdoors for self care; progress core stability (add rotation with T -Band if tolerated), continue hip flexibility (focus on hip ext & ER) program. STM to R low back if needed. Can try manual lumbar traction if back pain interfering with ex.
--- NOTE | 2018-05-08 14:19 | PT.OTN ---
Current Diagnoses Other intervertebral disc degeneration, lumbar region (05/08/18) Low back pain (05/08/18) Physical Therapy Treatment Note PT-OP-A Visit Information Start: 04/06/18 16:07 Freq: Status: Active Protocol: Document 05/08/18 14:08 SA (Rec: 05/08/18 14:18 SA [id number]) Out-Patient Physical Therapy Visit Information Visit Information Visit Type Treatment Note Visit Start Time 13:00 Visit Stop Time 13:45 Visit Number 9 Number of SALES OPERATIONS MANAGER Visits 1 PT-OP-B Current Condition Start: 04/06/18 16:07 Freq: Status: Active Protocol: Document 04/10/18 13:38 LRN (Rec: 04/10/18 15:03 LRN [id number]) Current Condition History of Current Condition Onset Date Chronic back pain, worsening 6 months ago Current Complaints Back pain limiting ability to stand and walk. History of Current Condition LBP for years. 1st injury in 2 lifting injury. Injury to cervical spine in early 's. Has had PT at [facility] 3 years ago, working on abdominal strengthening. No significant change with therapy. Within the last year, can't walk as far as he wants. Lately, within the last 6 month has been getting harder to walk farther than 300 yards, but on good days can walk a 1 mile. Currently under a tremendous amount of stress. Several years ago could walk 2-3 miles a couple times a week. Prior Treatments and Tests MRI for neck and low back [address] Padilla in [place]. Future Testing and Treatments Planned None Treatment Goals Patient/Caregiver Goals Pt goal is to be able to walk more to decrease weight and to sleep better. Walk painfree (hasn't been painfree for many years). Prior Functional Status Baseline Function- ADL's Modified Independent Baseline Function- Mobility Independent Baseline Function- Gait Sometimes limps due to L knee dysfunction sometimes. Baseline Function- Recreation/Hobbies Reads. Fishing off the beach. Sedentary. Baseline Function- Other Needs assist to get socks on. Current Functional Impairments (Reported) Functional Limitations- ADL's Can't bend over to put socks on. Functional Limitations- Mobility/Gait Walking 500 yards to maximum of 1 mile (on a good day). 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 Has an abdominal hernia. Admittedly under a lot of stress. CAD PT-OP-C Subjective Start: 04/06/18 16:07 Freq: Status: Active Protocol: Document 05/08/18 14:08 SA (Rec: 05/08/18 14:18 SA [id number]) OP-PT Subjective Patient Comments Patient Comments Pt reports very little LBP today, went on 20 min walk and did well but had back brace on. PT-OP-F Manual Assessment Start: 04/06/18 16:07 Freq: Status: Active Protocol: Document 04/10/18 13:38 LRN (Rec: 04/10/18 15:03 LRN [id number]) Manual Assessments Soft Tissue Assessment Soft Tissue Mobility Assessment Decreased mobility in low back Joint Mobility Assessment Joint Mobility Assessment Decreased lumbar mobility and hip mobility. PT-OP-H Neuro Start: 04/06/18 16:07 Freq: Status: Active Protocol: Document 04/10/18 13:38 LRN (Rec: 04/10/18 15:03 LRN [id number]) Sensation Evaluation Gross Sensation Gross Sensation WNL Deep Tendon Reflex & Clonus Assessment Deep Tendon Reflex Kanu Patellar & Achilles Deep Tendon Reflex 2+ Normal Vital Signs Blood Pressure Standing Blood Pressure (90/60-120/80 mmHg) 120/80 Blood Pressure Source Manual Cuff Right Upper Extremity Sitting Blood Pressure (90/60-120/80 mmHg) 140/72 H Blood Pressure Source Manual Cuff Right Upper Extremity Supine Blood Pressure (90/60-120/80 mmHg) 140/78 H Blood Pressure Source Manual Cuff Right Upper Extremity PT-OP-J Posture/Palpation/Skin Start: 04/06/18 16:07 Freq: Status: Active Protocol: Document 04/10/18 13:38 LRN (Rec: 04/10/18 15:03 LRN [id number]) Posture Evaluation Comments Posture Comments Standing Posture: Forward head, increased kyphosis and lordosis, anterior tilt of pelvis, moderate protruding abdomen. Pelvic R rotation, mildly elevated R shoulder. PT-OP-K Range of Motion Start: 04/06/18 16:07 Freq: Status: Active Protocol: Document 04/10/18 13:38 LRN (Rec: 04/10/18 15:03 LRN [id number]) Lumbar Spine Range of Motion Lumbar Spine Active Degrees Testing Position Standing Flexion 30 Extension 10 Lateral Flexion Left 13 Lateral Flexion Right 7 ROM Limitations Soft Tissue Tightness Pain Comments Hip flexion is 15 deg's with trunk flexion Hip extension is 5 deg's with trunk extension Hip Goniometric Range of Motion Hip Measured in Degrees Right Passive Hip ROM WFL No Straight Leg Raise 60 Internal Rotation 10 External Rotation 50 Left Passive Hip ROM WFL No Straight Leg Raise 55 Internal Rotation 10 External Rotation 60 PT-OP-M Strength Start: 04/06/18 16:07 Freq: Status: Active Protocol: Document 04/10/18 13:38 LRN (Rec: 04/10/18 15:03 LRN [id number]) Hip Strength Hip Manual Muscle Testing Right Flexion (L2) 5 Normal Left Flexion (L2) 5 Normal PT-OP-Q Treatments Start: 04/06/18 16:07 Freq: Status: Active Protocol: Document 05/08/18 14:08 SA (Rec: 05/08/18 14:18 SA [email or web address]) Cardio Equipment Treadmill Duration (Minutes) 10 Speed 1.8 Incline 0 Therapeutic Exercises Supine Exercises Lateral hip Stretch Supine Exercise Name Lateral Hip stretch Side bilateral Reps/Minutes 60 x 1 5 Supine Exercise Name Heel slides Reps/Minutes 10x each Comments Neutral spine stabilization 4 Supine Exercise Name TA hold with hands/knees push Equipment Used Small Red T-Ball Reps/Minutes 8' 3 Supine Exercise Name piriformis stretch Reps/Minutes 60x1 2 Supine Exercise Name hip flexor stretch Side bilateral Reps/Minutes 4' Comments Each 60stretch followed by 10 reps active hip ext Standing Exercises Weight shifting Standing Exercise Name Lateral hip shift Side bilateral Comments No cramping in LE's Hanstring/LE neural stretch Standing Exercise Name Foot on step for hold stretch f/b 10 x ankle pumps Side bilateral Trunk rotation strengthening Standing Exercise Name Active Wood chop motion Side bilateral Reps/Minutes 15x Lateral trunk strengthening Standing Exercise Name Step outs Side bilateral Resistance Lev 2 T-Band Reps/Minutes 20x Self-Care/Home Management Treatment Education Patient Education Home Exercise Program Other Education Progression of walking program with neutral spine and weaning off of LB brace use for outdoor walks. PT-OP-R Modalities Start: 04/06/18 16:07 Freq: Status: Active Protocol: Document 04/12/18 13:45 AMB (Rec: 04/12/18 14:55 AMB [email or web address]) Hot Pack/Cold Pack Treatment Hot Pack Location low back Patient Position Hooklying Treatment Duration (minutes) 15 Patient Tolerance Good PT-OP-T Assessment and Plan Start: 04/06/18 16:07 Freq: Status: Active Protocol: Document 05/08/18 14:08 SA (Rec: 05/08/18 14:18 SA [email or web address]) Physical Therapy Assessment Assessment Summary Assessment Pt with improving TA contraction during exercise, Education for neutral spine with LE movements and continued hip stretching. Physical Therapy Plan Next Visit Focus/Plan Next Note Type Treatment Note Next Visit Plan Progress gait to outdoors for self care; progress core stability (add rotation with T -Band if tolerated), continue hip flexibility (focus on hip ext & ER) program. STM to R low back if needed. Can try manual lumbar traction if back pain interfering with ex.
--- NOTE | 2018-11-02 08:52 | PT.OPDS ---
Current Diagnoses Other intervertebral disc degeneration, lumbar region (05/08/18) Low back pain (05/08/18) Visit Care Team Role Provider Type Saroj Malik MD Attending Provider Physician Family Provider Primary Care Provider Specialty: Internal Medicine Address: [address] [place] [address], [facility] Email: [email or web address] Visit Number Visit Number 9 Discharge Summary PT-OP-B Current Condition Start: 04/06/18 16:07 Freq: Status: Active Protocol: Document 04/10/18 13:38 LRN (Rec: 04/10/18 15:03 LRN [id number]) Current Condition History of Current Condition Onset Date Chronic back pain, worsening 6 months ago Current Complaints Back pain limiting ability to stand and walk. History of Current Condition LBP for years. 1st injury in 1961 lifting injury. Injury to cervical spine in early 's. Has had PT at [facility] 3 years ago, working on abdominal strengthening. No significant change with therapy. Within the last year, can't walk as far as he wants. Lately, within the last 6 month has been getting harder to walk farther than 300 yards, but on good days can walk a 1 mile. Currently under a tremendous amount of stress. Several years ago could walk 2-3 miles a couple times a week. Prior Treatments and Tests MRI for neck and low back [address] Padilla in [place]. Future Testing and Treatments Planned None Treatment Goals Patient/Caregiver Goals Pt goal is to be able to walk more to decrease weight and to sleep better. Walk painfree (hasn't been painfree for many years). Prior Functional Status Baseline Function- ADL's Modified Independent Baseline Function- Mobility Independent Baseline Function- Gait Sometimes limps due to L knee dysfunction sometimes. Baseline Function- Recreation/Hobbies Reads. Fishing off the beach. Sedentary. Baseline Function- Other Needs assist to get socks on. Current Functional Impairments (Reported) Functional Limitations- ADL's Can't bend over to put socks on. Functional Limitations- Mobility/Gait Walking 500 yards to maximum of 1 mile (on a good day). 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 Has an abdominal hernia. Admittedly under a lot of stress. CAD PT-OP-T Assessment and Plan Start: 04/06/18 16:07 Freq: Status: Active Protocol: Document 11/02/18 08:49 LRN (Rec: 11/02/18 08:52 LRN [id number]) Physical Therapy Assessment Goals Decreased standing and walking Impairment 6/10 LBP limits standing to make meals and walking his pet > 1/4 mile Short Term Goal (STG) Pt will be able to tolerate standing and making meals with compensatory strategy's. STG Duration 05/11/18 Rv Detailer Goal (LTG) Pt will be able to walk his pet 2x/week for greater than 1 /[address] with LBP no greater than 3/10. LTG Duration 06/13/18 Decreased pain Impairment Low Back Pain limiting walking and standing tolerance, rated 1-6/10 Jail Goal (LTG) Decreased pt's LBP at its worst by 50% (to 3/10). LTG Duration 06/13/18 Self care Impairment Pt lacks independent self jail exercise program. Jail Goal (LTG) Pt will be independent with a self care HEP. LTG Duration 06/13/18 Progress Towards Goals Progress Comments As of 05/03/18: Pt tolerance to walking has improved per subjective report he is walking 1/4 mile for past 2 days. Assessment Summary Assessment Pt was last seen 05/08/18 by Oly Lopez PTA. The pt was not evaluated for progression of goals. Physical Therapy Plan Discharge Physical Therapy Discharge Reasons No Longer Attending PT Discharge Comments The pt did not complete his rehabilitation program and was not available for a final assessment. Thank you for your referral.
== END 2018-11-16 12:37 ==
LOC: PHYS 13:00
PROVIDERS: Family Provider Internal Medicine; PCP Internal Medicine; Visit Provider Internal Medicine
DX: M54.5 Low back pain (principal); M51.36 Other intervertebral disc degeneration, lumbar region
CPT/HCPCS: 97110; 97140; 97162

== ENCOUNTER → 2018-07-18 11:42 | Outpatient (CLI) | payer OTHER, SELFPAY | PROVIDERS: PCP Internal Medicine; Visit Provider Internal Medicine | DX: N40.0 Benign prostatic hyperplasia without lower urinary tract symptoms (principal) | CPT/HCPCS: 36415; 84153 ==

== ENCOUNTER → 2019-03-02 11:22 | Outpatient (CLI) | payer OTHER, SELFPAY ==
[2019-03-02 12:37] LABS: Aspartate Aminotransferase 31 IU/L (17-59); BUN Creatinine Ratio 18.8 (6-22); Blood Urea Nitrogen 15 mg/dL (9-20); Carbon Dioxide 29 mmol/L (22-32); Chloride 99 mmol/L (98-107); Cholesterol 137 mg/dL (140-199); Estimated Glomerular Filt Rate > 60.0 mL/min (>60); Glucose 96 mg/dL (80-110); HDL Cholesterol 32 mg/dL (40-60); HEMOLYSIS < 15 (0-50); LDL Cholesterol Calculated 84 mg/dL (<100); Potassium 4.4 mmol/L (3.4-5.1); Sodium 137 mmol/L (137-145); Triglycerides 105 mg/dL (35-150)
[2019-03-02 13:08] LABS: Prostate Specific Antigen 1.58 ng/mL (0.10-4.00)
== END ==
PROVIDERS: PCP Internal Medicine; Visit Provider Internal Medicine
DX: I25.10 Atherosclerotic heart disease of native coronary artery without angina pectoris (principal); E78.2 Mixed hyperlipidemia; N40.0 Benign prostatic hyperplasia without lower urinary tract symptoms
CPT/HCPCS: 36415; 80048; 80061; 84153; 84450

== ENCOUNTER → 2020-04-20 19:13 | Outpatient (ROUT) | payer OTHER, SELFPAY ==
[2020-04-20 19:33] LABS: Hematocrit 43.9 % (41-53); Hemoglobin 14.9 g/dL (13.5-17.5); Mean Corpuscular HGB Conc 33.8 % (30-36); Mean Corpuscular Hemoglobin 32.4 PG (26-34); Mean Corpuscular Volume 95.9 fL (80-100); Platelet Count 208 X10^3/uL (150-400); Red Blood Cell Count 4.58 X10^6/uL (4.5-5.9); Red Cell Distribution Width 13.5 % (11.6-14.8); White Blood Cell Count 6.4 X10^3/uL (4.5-11.0)
[2020-04-20 19:49] LABS: Alanine Aminotransferase 61 IU/L (<50); Albumin 4.4 g/dL (3.5-5.0); Albumin Globulin Ratio 1.6 (1.0-2.8); Alkaline Phosphatase 102 U/L (38-126); Aspartate Aminotransferase 39 IU/L (17-59); Bilirubin Total 0.9 mg/dL (0.2-1.3); Blood Urea Nitrogen 15 mg/dL (9-20); Calcium 9.8 mg/dL (8.4-10.2); Carbon Dioxide 30 mmol/L (22-32); Chloride 100 mmol/L (98-107); Estimated Glomerular Filt Rate > 60.0 mL/min (>60); Globulin 2.7 g/dL (1.7-4.1); Glucose 76 mg/dL (80-110); HEMOLYSIS < 15 (0-50); Potassium 4.7 mmol/L (3.4-5.1); Sodium 134 mmol/L (137-145); Total Protein 7.1 g/dL (6.3-8.2)
[2020-04-20 20:21] LABS: TSH w/ Reflex to FT4 2.46 uIU/mL (0.47-4.68)
== END ==
PROVIDERS: PCP Internal Medicine; Visit Provider Student in an Organized Health Care Education/Training Program
DX: R53.83 Other fatigue (principal)
CPT/HCPCS: 80053; 84443; 85027

== ENCOUNTER → 2020-04-27 12:04 | Outpatient (CLI) | payer OTHER, SELFPAY ==
--- NOTE | 2020-04-27 | DI.US.S_ITS ---
PROCEDURE: US ABDOMEN LIMITED INDICATIONS: LEFT FLANK MASS TECHNIQUE: Real-time focused scanning was performed of the abdomen, with image documentation. COMPARISON: 09/22/16 CT of the abdomen/pelvis reviewed.. FINDINGS: There is an ill-defined isoechoic masslike structure measuring up to 0.7 x 3.8 x 4.4 cm in the area of current clinical concern, possibly representing a lipoma. IMPRESSION: Possible lipoma as the left paraspinous palpable abnormality in the area of current clinical concern. Very close clinical follow-up is recommended. If this abnormality increases in size or develops symptomatology contrast-enhanced MR scanning would provide the most accurate follow-up assessment. Dictated by: Romeo Sullivan M.D. on 04/27/2020 at 14:28 Approved by: Romeo Sullivan M.D. on 04/27/2020 at 14:31
== END ==
PROVIDERS: PCP Internal Medicine; Referring Provider Student in an Organized Health Care Education/Training Program; Visit Provider Student in an Organized Health Care Education/Training Program
DX: R19.09 Other intra-abdominal and pelvic swelling, mass and lump (principal)
CPT/HCPCS: 76705

== ENCOUNTER → 2020-06-08 13:05 | Outpatient (CLI) | payer OTHER, SELFPAY ==
--- NOTE | 2020-06-08 13:06 | DI.MRI.S_ITS ---
PROCEDURE: MR LUMBAR SPINE WO CON INDICATIONS: Low back pain TECHNIQUE: Noncontrast sagittal T1 spin echo and T2 fast echo, sagittal STIR, axial T1 and T2 fast spin echo through the lumbar spine. In cases with scoliosis, additional coronal T2 fast spin echo may be performed. COMPARISON: None. FINDINGS: Image quality: Diagnostic, with note made of motion artifact. Alignment and Curvature: There is mild grade 1 anterolisthesis seen at the L4-L5 level and L5-S1 level. No associated pars defects are seen. Bone Marrow: Marrow is of normal overall signal. No acute vertebral body compression fractures. Spinal Cord: Conus medullaris terminates at the L1 level. Visualized cord demonstrates normal signal and size. Paraspinous Soft Tissues: No paravertebral masses. T11-T12: Ycqc-sz-[id number] loss of disc height and disc signal can be seen. Moderate bilateral neural foraminal narrowing is seen. No significant central canal narrowing is seen. T12-L1: There is lcns-kq-sbfakxhg loss of disc height and disc signal seen at this level. Mild facet joint hypertrophy is seen. No significant neural foraminal or central canal narrowing can be seen. L1-L2: The disc height is well-preserved. Loss of disc signal is seen at this level. Mild generalized disc bulge is seen. Mild to moderate facet hypertrophy is seen. Mild to moderate bilateral neural foraminal narrowing can be seen. There is [id number]-kx-[id number] central canal narrowing. L2-L3: Mild loss of disc height is seen. Loss of disc signal is seen. Mild generalized disc bulge is seen. There is a mild central disc protrusion. Mild to moderate facet hypertrophy is seen. There is moderate left-sided and no significant right-sided neural foraminal narrowing seen. Mild central canal narrowing is seen. L3-L4: The disc height is well-preserved. Loss of disc signal is seen at this level. Mild to moderate disc bulge is seen, with a mild central disc protrusion. Moderate facet joint hypertrophy is seen. There is avzh-co-rcmfdggy left-sided and moderate right-sided neural foraminal narrowing seen. Moderate central canal narrowing is seen. L4-L5: At least moderate loss of disc height and disc signal can be seen at this level. At least moderate disc bulge is seen, which is eccentric to the right. There is a central disc protrusion. Mild to moderate facet hypertrophy can be seen at this level. There is moderate left-sided and moderate to severe right-sided neural foraminal narrowing seen. There is a degree of compression seen upon the exiting nerve roots. Moderate central canal narrowing is seen. L5-S1: The disc height is well-preserved. Loss of disc signal is seen at this level. Moderate generalized disc bulge is seen. There is at least moderate right-sided and moderate left-sided facet hypertrophy seen. There is at least moderate left-sided and moderate to severe right-sided neural foraminal narrowing seen. There is a degree of compression seen upon the exiting nerve roots. Moderate central canal narrowing is seen. IMPRESSION: Multiple levels of lumbar spine degenerative change are seen, which are worst at L4-L5 and L5-S1. Dictated by: Carlin Carpio M.D. on 06/08/2020 at 13:09 Approved by: Carlin Carpio M.D. on 06/08/2020 at 13:14
== END ==
PROVIDERS: PCP Internal Medicine; Referring Provider Internal Medicine; Visit Provider Internal Medicine
DX: M54.5 Low back pain (principal); M47.816 Spondylosis without myelopathy or radiculopathy, lumbar region; M47.817 Spondylosis without myelopathy or radiculopathy, lumbosacral region
CPT/HCPCS: 72148

== ENCOUNTER → 2020-06-17 07:37 | Outpatient (CLI) | payer OTHER, SELFPAY ==
[2020-06-17 08:13] LABS: Add Manual Diff / Slide Review NO; Basophils Absolute Auto 100 /uL (0-100); Basophils Percent Auto 1.2 % (0-2); Eosinophils Absolute Auto 100 /uL (0-450); Eosinophils Percent Auto 2.5 % (2-4); Hemoglobin 13.7 g/dL (13.5-17.5); Lymphocytes Absolute Auto 1800 /uL (1100-4500); Lymphocytes Percent Auto 34.1 % (25-40); Mean Corpuscular HGB Conc 33.4 % (30-36); Mean Corpuscular Hemoglobin 32.1 PG (26-34); Mean Corpuscular Volume 95.9 fL (80-100); Monocytes Absolute Auto 500 /uL (0-900); Monocytes Percent Auto 9.4 % (3-14); Neutrophils Absolute Auto 2800 /uL (1500-7000); Neutrophils Percent Auto 52.8 % (50-75); Platelet Count 191 X10^3/uL (150-400); Red Blood Cell Count 4.27 X10^6/uL (4.5-5.9); Red Cell Distribution Width 13.3 % (11.6-14.8); White Blood Cell Count 5.3 X10^3/uL (4.5-11.0)
[2020-06-17 08:34] LABS: BUN Creatinine Ratio 21.1 (6-22); Blood Urea Nitrogen 16 mg/dL (9-20); Calcium 9.7 mg/dL (8.4-10.2); Carbon Dioxide 27 mmol/L (22-32); Chloride 103 mmol/L (98-107); Cholesterol 143 mg/dL (140-199); Estimated Glomerular Filt Rate > 60.0 mL/min (>60); Glucose 100 mg/dL (80-110); HDL Cholesterol 49 mg/dL (40-60); HEMOLYSIS < 15 (0-50); LDL Cholesterol Calculated 82 mg/dL (<100); Potassium 4.4 mmol/L (3.4-5.1); Sodium 137 mmol/L (137-145); Triglycerides 60 mg/dL (35-150)
== END ==
PROVIDERS: PCP Internal Medicine; Referring Provider Internal Medicine Cardiovascular Disease; Visit Provider Internal Medicine Cardiovascular Disease
DX: R06.00 Dyspnea, unspecified (principal); I25.10 Atherosclerotic heart disease of native coronary artery without angina pectoris
CPT/HCPCS: 36415; 80048; 80061; 85025

== ENCOUNTER 2020-06-30 11:13 | Observation (INO) | payer OTHER, SELFPAY ==
[2020-06-30] VITALS (18 sets, daily range): BP systolic 127–182; BP diastolic 67–91; PULSE 51–91; RESP 11–44; TEMP 36.3–36.7; O2SAT 96–100; BMI 30.1
--- NOTE | 2020-06-30 11:23 | DI.RAD.S_ITS ---
PROCEDURE: XR CHEST 1V INDICATIONS: chest pain TECHNIQUE: One view of the chest was acquired. COMPARISON: [facility] [place], CHEST 2VW, 03/11/2010, 13:14. FINDINGS: Surgical changes and devices: Median sternotomy wires are stable.. Lungs and pleura: Lungs are clear. No pleural effusions or pneumothorax. Mediastinum: Mediastinal contours appear normal. Heart size is normal. Bones and chest wall: No suspicious bony lesions. Overlying soft tissues appear unremarkable. IMPRESSION: No acute cardiopulmonary disease process. Dictated by: Tracey Benitez MD, PhD on 06/30/2020 at 11:42 Approved by: Tracey Benitez MD, PhD on 06/30/2020 at 11:43
[2020-06-30 11:34] LABS: Add Manual Diff / Slide Review NO; Basophils Absolute Auto 100 /uL (0-100); Eosinophils Absolute Auto 100 /uL (0-450); Eosinophils Percent Auto 1.3 % (2-4); Hematocrit 45.7 % (41-53); Hemoglobin 15.7 g/dL (13.5-17.5); Lymphocytes Absolute Auto 2200 /uL (1100-4500); Lymphocytes Percent Auto 24.6 % (25-40); Mean Corpuscular HGB Conc 34.4 % (30-36); Mean Corpuscular Hemoglobin 32.8 PG (26-34); Mean Corpuscular Volume 95.4 fL (80-100); Monocytes Absolute Auto 700 /uL (0-900); Monocytes Percent Auto 7.5 % (3-14); Neutrophils Absolute Auto 5800 /uL (1500-7000); Neutrophils Percent Auto 65.6 % (50-75); Platelet Count 206 X10^3/uL (150-400); Red Blood Cell Count 4.79 X10^6/uL (4.5-5.9); Red Cell Distribution Width 13.5 % (11.6-14.8); White Blood Cell Count 8.9 X10^3/uL (4.5-11.0)
[2020-06-30 11:41] LABS: INR 1.1 (0.9-1.3); Prothrombin Time 12.1 SECONDS (10.1-12.7)
[2020-06-30 11:43] LABS: PTT Partial Thromboplastin Tim 43 SECONDS (26.4-36.2)
[2020-06-30 11:48] LABS: Alanine Aminotransferase 44 IU/L (<50); Albumin 4.8 g/dL (3.5-5.0); Albumin Globulin Ratio 1.5 (1.0-2.8); Alkaline Phosphatase 117 U/L (38-126); Aspartate Aminotransferase 36 IU/L (17-59); BUN Creatinine Ratio 20.7 (6-22); Bilirubin Total 1.1 mg/dL (0.2-1.3); Blood Urea Nitrogen 17 mg/dL (9-20); Calcium 10.1 mg/dL (8.4-10.2); Carbon Dioxide 29 mmol/L (22-32); Chloride 101 mmol/L (98-107); Creatine Kinase 135 U/L (55-170); Estimated Glomerular Filt Rate > 60.0 mL/min (>60); Globulin 3.2 g/dL (1.7-4.1); Glucose 136 mg/dL (80-110); Lipase 138 U/L (23-300); Sodium 139 mmol/L (137-145)
[2020-06-30 11:58] LABS: Troponin I < 0.012 ng/mL (0.01-0.034)
[2020-06-30 12:03] LABS: CKMB % Relative Index 2.6 % (1.5-5.0); Creatine Kinase MB 3.45 ng/mL (<2.37); HEMOLYSIS 19 (0-50)
--- NOTE | 2020-06-30 12:27 | ED.ARRPALP ---
HPI - Arrhythmia/Palpitations General Chief Complaint: Arrhythmia/Palpitations Stated Complaint: high heart rate episodes this morning Time Seen by Provider: 06/30/20 11:26 Source: patient Mode of arrival: Ambulatory Limitations: no limitations History of Present Illness HPI narrative: Patient is a 80-year-old male who came to the emergency department today for evaluation of 3 separate episodes that occurred this morning. He states that on 3 occasions with the 1st 1 being early this morning when he bent over to pick something up off of the driveway that he felt like his heart was beating fast. He had some chest pressure. Is also lightheaded. Some slight shortness of breath during the time. It lasted a couple minutes and then completely resolved. He went about his day and essentially the same symptoms happened 2 separate times. On 1 of the occasions he did have a pulse oximeter and he stated that it read his heart rate in the 180s. Approximately 3-4 years ago he had similar symptoms that occurred. Does have a history coronary artery disease. Is afebrile. Is currently asymptomatic. Related Data Home Medications Medication Instructions Recorded Confirmed alfuzosin 10 mg tablet,extended 10 mg PO DAILY 12/18/17 12/18/17 release 24 hr ascorbate calcium (vitamin C) 500 1 gram PO Q6H 12/18/17 12/18/17 mg tablet ascorbic acid (vitamin C) 500 mg mg PO cap 12/18/17 12/18/17 capsule atorvastatin 10 mg tablet 10 mg PO DAILY 12/18/17 12/18/17 cholecalciferol (vitamin D3) 25 1,000 unit PO DAILY 12/18/17 12/18/17 mcg (1,000 unit) capsule finasteride 1 mg tablet 1 mg PO DAILY 12/18/17 12/18/17 vitamin B complex 1 tab PO DAILY 12/18/17 12/18/17 vitamin E 200 unit capsule 200 unit PO DAILY 12/18/17 12/18/17 Allergies Allergy/AdvReac Type Severity Reaction Status Date / Time azithromycin AdvReac itching, Verified 12/18/17 15:17 hives horse serum Allergy Blood Uncoded 12/18/17 15:17 poisoning Review of Systems Constitutional Constitutional: Denies fever(s) Cardiovascular Cardiovascular: Reports rapid heart rate, Denies irregular heart rhythm and Reports dyspnea Respiratory Respiratory: Reports dyspnea Gastrointestinal Gastrointestinal: Denies abdominal pain, Denies nausea and Denies vomiting Musculoskeletal Musculoskeletal: Reports system reviewed and no additional complaints, except as documented Integumentary/Breasts Skin/Breast: Denies rash Neurologic Neurologic: Reports system reviewed and no additional complaints, except as documented Hematologic/Lymphatic On Anticoagulants: No Allergic/Immunologic Allergic/Immunologic: Reports system reviewed and no additional complaints, except as documented Patient History Medical History (Updated 06/30/20 @ 14:41 by Francisco J England DO) Benign prostatic hyperplasia Coronary artery disease Hyperlipidemia Surgical History History of colonoscopy History of heart bypass surgery (~2000) History of tonsillectomy (~194) History of tonsillectomy Family History Father Cancer Mother Cancer Social History marital status: household members: spouse occupational status: previously employed Smoking Status: Never smoker alcohol intake: current substance use type: does not use Smoking Status: Never smoker Substance Use Type: does not use Exam Initial Vital Signs Initial Vital Signs: Vital Signs Pulse Rate 91 H 06/30/20 11:21 Blood Pressure 152/80 H 06/30/20 11:21 Pulse Oximetry 98 06/30/20 11:21 Const General: cooperative and comfortable Limitations: mental status not altered HENMT Head: normal to inspection and normocephalic Resp Effort & Inspection: normal respiratory effort Auscultation: clear to auscultation bilaterally Cardio Rate: regular rate Rhythm: regular rhythm GI Inspection: non-distended Palpation: soft Skin Lesions: no lesions Rashes: no rashes Neuro General: patient alert, patient awake and patient oriented x3 Cognition: normal cognition Speech: speech normal Extrem General: normal to inspection, capillary refill normal and No edema Psych Appearance: grossly normal and well kempt Course Orders Ordered: ED Orders 06/30/20 11:21 EKG-12 Lead Stat 06/30/20 11:23 XR chest 1V Stat 06/30/20 11:25 Complete Blood Count AUTO DIFF Stat Comprehensive Metabolic Panel Stat Lipase Stat Partial Thromboplastin Time Stat Prothrombin Time INR Stat Troponin & CK Cardiac Panel Stat 06/30/20 13:41 Troponin & CK Cardiac Panel Stat Discontinued Medications Aspirin (Aspirin 81 Mg Chew Tab) 324 mg PO NOW ONE Stop: 06/30/20 14:30 Vital Signs Vital signs: Vital Signs - 8 hr 06/30/20 11:21 06/30/20 11:23 06/30/20 11:30 Pulse Rate 91 H 91 H 81 Respiratory Rate 16 15 Blood Pressure 152/80 H 152/80 H Pulse Oximetry 98 99 99 06/30/20 12:00 06/30/20 12:30 06/30/20 13:00 Pulse Rate 74 67 72 Respiratory Rate 17 17 20 Blood Pressure 152/80 H Pulse Oximetry 97 96 98 06/30/20 13:30 06/30/20 14:00 06/30/20 14:15 Pulse Rate 60 69 91 H Respiratory Rate 19 44 H 20 Blood Pressure Pulse Oximetry 96 98 99 MDM - Arrhythmia/Palpitations Medical Records Attestation: I reviewed the patient's medical records. Lab Data Attestation: I reviewed the patient's lab results. Result diagrams: 06/30/20 11:25 06/30/20 11:25 Labs: Lab Results 06/30/20 06/30/20 06/30/20 Range/Units 11:25 11:25 11:25 WBC 8.9 (4.5-11.0) X10^3/uL RBC 4.79 (4.5-5.9) X10^6/uL Hgb 15.7 (13.5-17.5) g/dL Hct 45.7 (41-53) % MCV 95.4 (80-100) fL MCH 32.8 (26-34) PG MCHC 34.4 (30-36) % RDW 13.5 (11.6-14.8) % Plt Count 206 (150-400) X10^3/uL Neut % (Auto) 65.6 (50-75) % Lymph % (Auto) 24.6 L (25-40) % [place] % (Auto) 7.5 (3-14) % Eos % (Auto) 1.3 L (2-4) % Baso % (Auto) 1.0 (0-2) % Neut # (Auto) 5800 (3676-3838) /uL Lymph # (Auto) 2200 (8300-4154) /uL [place] # (Auto) 700 (0-900) /uL Eos # (Auto) 100 (0-450) /uL Baso # (Auto) 100 (0-100) /uL PT 12.1 (10.1-12.7) SECONDS INR 1.1 (0.9-1.3) APTT 43 H (26.4-36.2) SECONDS Sodium 139 (137-145) mmol/L Potassium 4.0 (3.4-5.1) mmol/L Chloride 101 (98-107) mmol/L Carbon Dioxide 29 (22-32) mmol/L BUN 17 (9-20) mg/dL Creatinine 0.82 (0.66-1.25) mg/dL Estimated GFR > 60.0 (>60) mL/min BUN/Creatinine Ratio 20.7 (6-22) Glucose 136 H (80-110) mg/dL Calcium 10.1 (8.4-10.2) mg/dL Total Bilirubin 1.1 (0.2-1.3) mg/dL AST 36 (17-59) IU/L ALT 44 (<50) IU/L Alkaline Phosphatase 117 (38-126) U/L Total Creatine Kinase 135 (55-170) U/L CK-MB (CK-2) 3.45 H (<2.37) ng/mL CK-MB (CK-2) Rel Index 2.6 (1.5-5.0) % Troponin I < 0.012 (0.01-0.034) ng/mL Total Protein 8.0 (6.3-8.2) g/dL Albumin 4.8 (3.5-5.0) g/dL Globulin 3.2 (1.7-4.1) g/dL Albumin/Globulin Ratio 1.5 (1.0-2.8) Lipase 138 (23-300) U/L 06/30/20 Range/Units 13:41 WBC (4.5-11.0) X10^3/uL RBC (4.5-5.9) X10^6/uL Hgb (13.5-17.5) g/dL Hct (41-53) % MCV (80-100) fL MCH (26-34) PG MCHC (30-36) % RDW (11.6-14.8) % Plt Count (150-400) X10^3/uL Neut % (Auto) (50-75) % Lymph % (Auto) (25-40) % [place] % (Auto) (3-14) % Eos % (Auto) (2-4) % Baso % (Auto) (0-2) % Neut # (Auto) (0595-2104) /uL Lymph # (Auto) (9302-5492) /uL [place] # (Auto) (0-900) /uL Eos # (Auto) (0-450) /uL Baso # (Auto) (0-100) /uL PT (10.1-12.7) SECONDS INR (0.9-1.3) APTT (26.4-36.2) SECONDS Sodium (137-145) mmol/L Potassium (3.4-5.1) mmol/L Chloride (98-107) mmol/L Carbon Dioxide (22-32) mmol/L BUN (9-20) mg/dL Creatinine (0.66-1.25) mg/dL Estimated GFR (>60) mL/min BUN/Creatinine Ratio (6-22) Glucose (80-110) mg/dL Calcium (8.4-10.2) mg/dL Total Bilirubin (0.2-1.3) mg/dL AST (17-59) IU/L ALT (<50) IU/L Alkaline Phosphatase (38-126) U/L Total Creatine Kinase 104 (55-170) U/L CK-MB (CK-2) 2.89 H (<2.37) ng/mL CK-MB (CK-2) Rel Index 2.8 (1.5-5.0) % Troponin I 0.033 (0.01-0.034) ng/mL Total Protein (6.3-8.2) g/dL Albumin (3.5-5.0) g/dL Globulin (1.7-4.1) g/dL Albumin/Globulin Ratio (1.0-2.8) Lipase (23-300) U/L Imaging Data Chest x-ray: Radiologist's Impresson: [address] [id number] ReportSigned Patient: Lucas Carr LMR#: [id number]: 1Acct:[id number]/Sex: 80 / MDate of Service: 06/30/20Loc: EDAccession Number: [id number] Procedure: XR chest 1V Ordering Provider: Francisco J England D.O. PROCEDURE: XR CHEST 1V INDICATIONS: chest pain TECHNIQUE: One view of the chest was acquired. COMPARISON: [facility] [place], [place], CHEST 2VW, 03/11/2010, 13:14. FINDINGS: Surgical changes and devices: Median sternotomy wires are stable.. Lungs and pleura: Lungs are clear. No pleural effusions or pneumothorax. Mediastinum: Mediastinal contours appear normal. Heart size is normal. Bones and chest wall: No suspicious bony lesions. Overlying soft tissues appear unremarkable. IMPRESSION: No acute cardiopulmonary disease process. Dictated by: Tracey Benitez MD, PhD on 06/30/2020 at 11:42 Approved by: Tracey Benitez MD, PhD on 06/30/2020 at 11:43 ECG Data Attestation: I personally reviewed and interpreted this ECG as follows: Prior ECG tracings: not available for review Interpretation: Sinus rhythm Ventricular rate 91 Right bundle branch block QRS 134 milliseconds Normal QTC No ST T wave changes MDM Narrative Medical decision making narrative: Patient had no ectopy here in the emergency department. He was relatively asymptomatic. Was not tachycardic. Not hypotensive. Had no ST T wave changes on his EKG. He ambulated around the emergency department without tachycardia. He is afebrile. A repeat troponin does show an elevation. Given this and his presenting symptoms today I do feel that admission in the hospital for risk stratification as needed. Discussed the case with Dr. Mcgowan to admit the patient for further evaluation and treatment. I also discussed this with the patient who expressed understanding and agreement. Discharge Plan Departure Patient Disposition: Admitted as Observation Clinical Impression: Palpitations, Chest pain Admit Date/Time: 06/30/20 14:53 Admit Provider: Wallace Mcgowan
[2020-06-30 14:02] LABS: Creatine Kinase 104 U/L (55-170)
[2020-06-30 14:15] LABS: Troponin I 0.033 ng/mL (0.01-0.034)
--- NOTE | 2020-06-30 14:16 | PC.NURSE ---
patient ambulated 6 laps around unit in an attempt to reportduce tachycardia. Patient resting HR 61. Highest HR noted while ambulating 94. Spo2 remaind between 97-100 entire ambulation trial. Patient tolerated very well with no complaints.
[2020-06-30 14:18] LABS: CKMB % Relative Index 2.8 % (1.5-5.0); Creatine Kinase MB 2.89 ng/mL (<2.37)
[2020-06-30] MEDS: ASPIRIN 81 MG CHEW TAB 324 MG PO (15:12)
--- NOTE | 2020-06-30 17:03 | DI.ECHO.S_ITS ---
Center +---------+ Hospital +---------+ : : [address] : [place] : : : : [id number] : : : : Phone: [phone]+ Echocardiogram Report + + :Name: DOTTY DURAN Study Date: 07/01/2020 Height: 70 in : [facility] ReadingLocation: Weight: 210 lb : : Gender: Male BSA: 2.1 m2 : :: 1940 Age: 80 yrs BP: 153/70 mmHg: :Reason For Study: CHEST PAIN : :Ordering Physician: NAT, : :IZZY Performed By: Yelena Gomes : :Referring: IZZY JOHNS : + + Interpretation Summary The left ventricle is normal in size. Left ventricular systolic function appears normal without focal wall motion abnormalities. The ejection fraction is estimated to be 60-65%. Diastolic parameters suggest probable normal left ventricular diastolic function and normal filling pressures. The right ventricle is normal in size and function. Pulmonary artery pressures cannot be estimated because of the lack of a measurable TR jet velocity. The left atrium is borderline dilated. Right atrial size is normal. There is no significant valvular heart disease. The ascending aorta is moderately enlarged. Procedure: A two-dimensional transthoracic echocardiogram with color flow and Doppler was performed. The study quality was technically adequate. There is no prior echocardiogram noted for this patient. The patient was in sinus bradycardia with heart rates between 51-65 bpm during the exam. Left Ventricle: The left ventricle is normal in size. There is mild concentric left ventricular hypertrophy. Proximal septal thickening is noted. There is no echo evidence for significant left ventricular outflow tract obstruction. Left ventricular systolic function appears normal without focal wall motion abnormalities. The ejection fraction is estimated to be 60-65%. Diastolic parameters suggest probable normal left ventricular diastolic function and normal filling pressures. Right Ventricle: The right ventricle is normal in size and function. Atria: The left atrium is borderline dilated. Right atrial size is normal. There is no Doppler evidence for an interatrial shunt. Mitral Valve: There is mild mitral annular calcification. The mitral valve leaflets appear mildly thickened, but open well. There is trace mitral regurgitation. Aortic Valve: There is discrete nodular thickening of the non- coronary cusp. The aortic valve is slightly calcified. There is no aortic valve stenosis. No aortic regurgitation is present. Tricuspid Valve: The tricuspid valve is normal in structure and function. There is trace tricuspid regurgitation. Pulmonary artery pressures cannot be estimated because of the lack of a measurable TR jet velocity. Pulmonic Valve: The pulmonic valve is not well visualized. There is no pulmonic valvular regurgitation. There is no significant valvular heart disease. Great Vessels: The aortic root is normal size. The ascending aorta is moderately enlarged. The inferior vena cava was not well visualized. Pericardium/ Pleura There is no pericardial effusion. There is no pleural effusion. MMode/2D Measurements & Calculations LVIDd: 4.0 cm LVOT diam: 2.2 cm LVIDs: 2.6 cm Ao root diam: 3.9 cm FS: 35.2 % asc Aorta Diam: 4.1 cm EPSS: 0.86 cm Ao Arch Diam (Prox Trans): 3.9 cm IVSd: 1.2 cm LVPWd: 1.0 cm LV lundberg. diameter/BSA (cm/m^2): 1.9 LV sys. diameter/BSA (cm/m^2): 1.2 LA A2 area: 24.7 cm2 RA long axis: 5.3 cm LA A4 area: 18.4 cm2 RA area: 18.6 cm2 LA length (vol): 5.5 cm RA vol: 55.3 ml LA vol: 69.4 ml RA : 25.9 ml/m2 LA vol index: 32.6 ml/m2 RVD1 (basal): 3.5 cm TAPSE: 1.6 cm Doppler Measurements & Calculations Ao V2 max: 171.9 cm/sec LVOT Max Jabari: 104.7 cm/sec Ao V2 mean: 117.7 cm/sec LV V1 max P.4 mmHg Ao max P.8 mmHg LV V1 VTI: 21.0 cm Ao mean P.2 mmHg SHERWIN(I,D): 2.3 cm2 Ao V2 VTI: 35.8 cm SHERWIN(V,D): 2.4 cm2 sev ratio: 0.59 SHERWIN indexed to BSA (cm^2/m^2): 1.1 MV E max jabari: 81.3 cm/sec PA pr(Accel): 31.0 mmHg MV A max jabari: 88.4 cm/sec MV E/A: 0.92 Med Peak E' Jabari: 6.0 cm/sec E/E' med: 13.6 Lat Peak E' Jabari: 13.3 cm/sec E/E' lat: 6.1 E/e' average: 9.9 MV dec time: 0.27 sec SV(LVOT): 81.0 ml Reading Physician:08:58 AM
[2020-06-30 17:14] LABS: COVID19 - ADMIT (NP swab/PCR) Negative (Negative)
--- NOTE | 2020-06-30 17:48 | P.HP_ITS ---
History of Present Illness History of Present Illness Date Patient Seen: 06/30/20 Time Patient Seen: 13:48 Chief complaint: high heart rate episodes this morning Narrative: Mr. Carr is an 80M with PMH of CAD s/p CABG in 2012 who is coming in with chest discomfort, shortness of breath, and fast heart rate. 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 This has not occurred yet. Today he developed chest discomfort near the bottom of his throat, he was short of breath. He had a pulse ox which he says measure his heart rate as high as 180s. He had a couple episodes but this resolved in a few minutes on its own. He had no fevers, chills, cough, abdominal pain, nause, vomiting, diarrhea, lightheadedness. In the ER, he was found to have normal vitals aside from mild hypertension. His labs were notable for normal white count, creatinine 0.82. Initial troponin undetectable and then 0.03. CK-MB initially 3.45 and then 2.89. He had no abnormalities noted on telemetry. He was ambulating in the ED without issues. He was given aspirin and admitted for further evaluation. Patient History Medical History Benign prostatic hyperplasia Coronary artery disease Hyperlipidemia Surgical History History of colonoscopy History of heart bypass surgery (~2000) History of tonsillectomy (~1946) History of tonsillectomy Family & Social History Family History Father Cancer Mother Cancer Social History: household members spouse Prior Living Arrangements House Safety & Behavioral: Feels Safe in Current Yes Environment Been Physically Hurt or No Threatened By a Person Suicidal Ideation Description None Suicide Plan Description No Plan Tobacco & Substance use: Smoking Status Never smoker alcohol intake current alcohol intake frequency a few times a month Substance Use Type does not use Meds Home Medications and Allergies Home Medications Medication Instructions Recorded Confirmed Type alfuzosin 10 mg tablet,extended 10 mg PO DAILY 12/18/17 06/30/20 History release 24 hr ascorbate calcium (vitamin C) 500 1 gram PO DAILY 12/18/17 06/30/20 History mg tablet ascorbic acid (vitamin C) 500 mg mg PO cap 12/18/17 12/18/17 History capsule atorvastatin 10 mg tablet 10 mg PO DAILY 12/18/17 06/30/20 History cholecalciferol (vitamin D3) 25 1,000 unit PO DAILY 12/18/17 06/30/20 History mcg (1,000 unit) capsule finasteride 1 mg tablet 1 mg PO DAILY 12/18/17 06/30/20 History vitamin B complex 1 tab PO DAILY 12/18/17 12/18/17 History vitamin E 200 unit capsule 200 unit PO DAILY 12/18/17 12/18/17 History Adult Aspirin 81 mg PO DAILY 06/30/20 06/30/20 History Systane (propylene glycol) 1 drp EYE-BOTH TID 06/30/20 06/30/20 History bimatoprost [Lumigan] drp EYE-LEFT DAILY 06/30/20 History ketorolac 1 drp EYE-LEFT 06/30/20 History melatonin 5 mg PO DAILY 06/30/20 06/30/20 History Allergies Allergy/AdvReac Type Severity Reaction Status Date / Time azithromycin AdvReac itching, Verified 12/18/17 15:17 hives horse serum Allergy Blood Uncoded 12/18/17 15:17 poisoning Review of Systems Review of Systems Narrative: 14 systems reviewed and negative aside from what is noted in HPI Exam Vital Signs (past 8 hours): - 06/30/20 11:21 06/30/20 11:23 06/30/20 11:30 Temperature Pulse Rate 91 H 91 H 81 Respiratory Rate 16 15 Blood Pressure 152/80 H 152/80 H Pulse Oximetry 98 99 99 06/30/20 12:00 06/30/20 12:30 06/30/20 13:00 Temperature Pulse Rate 74 67 72 Respiratory Rate 17 17 20 Blood Pressure 152/80 H Pulse Oximetry 97 96 98 06/30/20 13:30 06/30/20 14:00 06/30/20 14:15 Temperature Pulse Rate 60 69 91 H Respiratory Rate 19 44 H 20 Blood Pressure Pulse Oximetry 96 98 99 06/30/20 14:30 06/30/20 15:00 06/30/20 15:30 Temperature Pulse Rate 58 L 57 L 53 L Respiratory Rate 22 16 19 Blood Pressure Pulse Oximetry 97 98 98 06/30/20 16:00 06/30/20 16:02 06/30/20 16:25 Temperature 97.4 F L Pulse Rate 54 L 52 L 59 L Respiratory Rate 15 11 L 17 Blood Pressure 127/67 182/91 H Pulse Oximetry 99 99 100 Oxygen Delivery Method Room Air Oxygen Flow Rate 0 Narrative Exam Narrative: GEN: no acute distress HEENT: PERRL, moist mucous membranes NECK: no JVD, trachea midline CV: regular rate and rhythm, +systolic ejection murmur PULM: clear bilaterally no wheezes rhonchi rales ABD: soft, nontender, nondistended, normal bowel sounds, no organomegaly EXT: warm and well perfused with no edema SKIN: no rashes noted NEURO: awake and alert, moving all extremities with no gross deficits Objective Labs Result Diagrams: 06/30/20 11:25 06/30/20 11:25 Labs: Laboratory Results - last 24 hr 06/30/20 06/30/20 06/30/20 11:25 11:25 11:25 WBC 8.9 RBC 4.79 Hgb 15.7 Hct 45.7 MCV 95.4 MCH 32.8 MCHC 34.4 RDW 13.5 Plt Count 206 Neut % (Auto) 65.6 Lymph % (Auto) 24.6 L [place] % (Auto) 7.5 Eos % (Auto) 1.3 L Baso % (Auto) 1.0 Neut # (Auto) 5800 Lymph # (Auto) 2200 [place] # (Auto) 700 Eos # (Auto) 100 Baso # (Auto) 100 PT 12.1 INR 1.1 APTT 43 H Sodium 139 Potassium 4.0 Chloride 101 Carbon Dioxide 29 BUN 17 Creatinine 0.82 Estimated GFR > 60.0 BUN/Creatinine Ratio 20.7 Glucose 136 H Calcium 10.1 Total Bilirubin 1.1 AST 36 ALT 44 Alkaline Phosphatase 117 Total Creatine Kinase 135 CK-MB (CK-2) 3.45 H CK-MB (CK-2) Rel Index 2.6 Troponin I < 0.012 Total Protein 8.0 Albumin 4.8 Globulin 3.2 Albumin/Globulin Ratio 1.5 Lipase 138 SARS-CoV-2 (PCR) 06/30/20 06/30/20 13:41 16:00 WBC RBC Hgb Hct MCV MCH MCHC RDW Plt Count Neut % (Auto) Lymph % (Auto) [place] % (Auto) Eos % (Auto) Baso % (Auto) Neut # (Auto) Lymph # (Auto) [place] # (Auto) Eos # (Auto) Baso # (Auto) PT INR APTT Sodium Potassium Chloride Carbon Dioxide BUN Creatinine Estimated GFR BUN/Creatinine Ratio Glucose Calcium Total Bilirubin AST ALT Alkaline Phosphatase Total Creatine Kinase 104 CK-MB (CK-2) 2.89 H CK-MB (CK-2) Rel Index 2.8 Troponin I 0.033 Total Protein Albumin Globulin Albumin/Globulin Ratio Lipase SARS-CoV-2 (PCR) Negative Assessment & Plan Assessment & Plan narrative: Mr. Carr is an 80M with H CAD s/p CABG who comes into the hospital with brief, self-resolved episodes of chest pain, palpitations, and shortness of breath. 1. Chest pain -given patients history has significant risk factors for developing worsening coronary disease -no recent ECHO or stress per patient -currently asymptomatic, with EKG without ischemia -troponin negative -ordered for aspirin and statin -plan for ECHO and stress test in AM for further risk stratification 2. CAD s/p CABG -treat as above, will continue aspirin, increase atorvastatin to maximum dose\ 3. BPH -continue alfuzosin, finasteride 4. Hyperlipidemia -continue statin at increased dose as above IVF: none DVT ppx: lovenox sc Diet: cardiac Code: Full, proxy is Francia Field VTE Deep Vein Thrombosis/Pulmonary Embolism Present on Admission: No MIPS - Admit I confirm the patient?s Advance Care Plan is present, Code status is documented, Surrogate decision maker is in patient?s record [If Yes, STOP here]: Yes
--- NOTE | 2020-06-30 18:00 | PC.ADMIT ---
[email or web address] [facility] Admission Note: Safe hand off from [facility], [facility]. Patient arrived on floor via wheelchair and ambulated to bedside. Patient VSS, lala in the 50's, heart murmor. Lung sounds clear. Bowel tones active in all quadrants. Patient states he does have some urinary retention. Patient was educated about the use of call light, bed is low and locked, call light within reach. Patient is not a high fall risk. The patient,Lucas Carr,80 y/o, was given written information regarding hospital policies, unit procedures and contact persons. Patient's smoking status: Never smoker. Vital Signs - 8 hr 06/30/20 11:21 06/30/20 11:23 06/30/20 11:30 Temperature Pulse Rate 91 H 91 H 81 Respiratory Rate 16 15 Blood Pressure 152/80 H 152/80 H Pulse Oximetry 98 99 99 06/30/20 12:00 06/30/20 12:30 06/30/20 13:00 Temperature Pulse Rate 74 67 72 Respiratory Rate 17 17 20 Blood Pressure 152/80 H Pulse Oximetry 97 96 98 06/30/20 13:30 06/30/20 14:00 06/30/20 14:15 Temperature Pulse Rate 60 69 91 H Respiratory Rate 19 44 H 20 Blood Pressure Pulse Oximetry 96 98 99 06/30/20 14:30 06/30/20 15:00 06/30/20 15:30 Temperature Pulse Rate 58 L 57 L 53 L Respiratory Rate 22 16 19 Blood Pressure Pulse Oximetry 97 98 98 06/30/20 16:00 06/30/20 16:02 06/30/20 16:25 Temperature 97.4 F L Pulse Rate 54 L 52 L 59 L Respiratory Rate 15 11 L 17 Blood Pressure 127/67 182/91 H Pulse Oximetry 99 99 100
[2020-06-30] MEDS: ATORVASTATIN 20 MG TABLET 80 MG PO (21:55)
[2020-06-30] MEDS: ALFUZOSIN 10 MG 10 EACH PO (22:24)
[2020-06-30 23:36] LABS: Troponin I 0.014 ng/mL (0.01-0.034)
[2020-07-01 03:38] VITALS: BP 153/70; PULSE 62; RESP 15; TEMP 36.1; O2SAT 98
[2020-07-01 04:47] LABS: Add Manual Diff / Slide Review NO; Basophils Absolute Auto 100 /uL (0-100); Eosinophils Absolute Auto 100 /uL (0-450); Eosinophils Percent Auto 2.2 % (2-4); Hematocrit 43.2 % (41-53); Hemoglobin 14.2 g/dL (13.5-17.5); Lymphocytes Absolute Auto 2500 /uL (1100-4500); Lymphocytes Percent Auto 38.5 % (25-40); Mean Corpuscular Hemoglobin 31.8 PG (26-34); Mean Corpuscular Volume 96.4 fL (80-100); Monocytes Absolute Auto 500 /uL (0-900); Monocytes Percent Auto 8.3 % (3-14); Neutrophils Absolute Auto 3200 /uL (1500-7000); Platelet Count 197 X10^3/uL (150-400); Red Blood Cell Count 4.48 X10^6/uL (4.5-5.9); Red Cell Distribution Width 13.1 % (11.6-14.8); White Blood Cell Count 6.5 X10^3/uL (4.5-11.0)
[2020-07-01 04:55] LABS: BUN Creatinine Ratio 21.1 (6-22); Blood Urea Nitrogen 15 mg/dL (9-20); Calcium 9.6 mg/dL (8.4-10.2); Carbon Dioxide 28 mmol/L (22-32); Chloride 104 mmol/L (98-107); Estimated Glomerular Filt Rate > 60.0 mL/min (>60); Glucose 116 mg/dL (80-110); HEMOLYSIS < 15 (0-50); Potassium 4.2 mmol/L (3.4-5.1); Sodium 138 mmol/L (137-145)
[2020-07-01 08:00] VITALS: BP 159/78; PULSE 57; RESP 18; TEMP 36.1; O2SAT 97
--- NOTE | 2020-07-01 08:46 | P.DS_ITS ---
History of Present Illness History of Present Illness Chief complaint: high heart rate episodes this morning Narrative: Mr. Carr is an 80M with PMH of CAD s/p CABG in 2012 who is coming in with chest discomfort, shortness of breath, and fast heart rate. He notes he has been in his normal state of health, recently saw his tape control skin or spar mill operator who recommended ECHO and stress test. This has not occurred yet. Today he developed chest discomfort near the bottom of his throat, he was short of breath. He had a pulse ox which he says measure his heart rate as high as 180s. He had a couple episodes but this resolved in a few minutes on its own. He had no fevers, chills, cough, abdominal pain, nause, vomiting, diarrhea, lightheadedness. In the ER, he was found to have normal vitals aside from mild hypertension. His labs were notable for normal white count, creatinine 0.82. Initial troponin undetectable and then 0.03. CK-MB initially 3.45 and then 2.89. He had no abnormalities noted on telemetry. He was ambulating in the ED without issues. He was given aspirin and admitted for further evaluation. Discharge Providers Provider Date of admission: 06/30/20 14:53 Discharge Date: 07/01/20 Primary care physician: Saroj Malik MD Discharge provider: Wallace Mcgowan MD Summary Hospital Course Discharge Diagnosis: 1. Chest pain 2. CAD s/p CABG 3. BPH 4. Hyperlipidemia Hospital Course: Mr. Carr was admitted with chest pain, palpitations. He was evaluated with cardiac telemetry with no arrhythmias. Troponin peaked at 0.03. ECHO showed a preserved EF. Stress test was low risk. He was continued on aspirin and statin. His symptoms resolved and he was able to be discharged. Given his palpitations, he should follow up with his tape control skin or spar mill operator and PCP and consideration could be done to order at Holter monitor for further cardiac monitoring. Exam Vital Signs (past 8 hours): Oxygen Delivery Method Room Air Oxygen Flow Rate 0 Narrative Exam Narrative: GEN: no acute distress HEENT: PERRL, moist mucous membranes NECK: no JVD, trachea midline CV: regular rate and rhythm PULM: clear bilaterally no wheezes rhonchi rales ABD: soft, nontender, nondistended, normal bowel sounds, no organomegaly EXT: warm and well perfused with no edema SKIN: no rashes noted NEURO: awake and alert, moving all extremities with no gross deficits Objective Labs Result Diagrams: 07/01/20 04:10 07/01/20 04:10 Labs: Laboratory Results - last 24 hr 07/01/20 07/01/20 04:10 04:10 WBC 6.5 RBC 4.48 L Hgb 14.2 Hct 43.2 MCV 96.4 MCH 31.8 MCHC 33.0 RDW 13.1 Plt Count 197 Neut % (Auto) 50.0 Lymph % (Auto) 38.5 Valley % (Auto) 8.3 Eos % (Auto) 2.2 Baso % (Auto) 1.0 Neut # (Auto) 3200 Lymph # (Auto) 2500 Valley # (Auto) 500 Eos # (Auto) 100 Baso # (Auto) 100 Sodium 138 Potassium 4.2 Chloride 104 Carbon Dioxide 28 BUN 15 Creatinine 0.71 Estimated GFR > 60.0 BUN/Creatinine Ratio 21.1 Glucose 116 H Calcium 9.6 PFSH Medical History Benign prostatic hyperplasia Coronary artery disease Hyperlipidemia Surgical History History of colonoscopy History of heart bypass surgery (~2000) History of tonsillectomy (~1946) History of tonsillectomy Family History Father Cancer Mother Cancer Social History marital status: household members: spouse occupational status: previously employed Smoking Status: Never smoker alcohol intake: current substance use type: does not use Discharge Plan Discharge Plan Patient Disposition: Home Provider Discharge Comment: Mr. Carr was admitted with chest discomfort, shortness of breath, and reportedly a fast heart rate on his pulse oximeter at home. He was monitored in the hospital. He was monitored on cardiac telemetry. He had negative troponin enzymes which means no heart attack. He had a low risk stress test which was similar to his last one. He had an ECHO which showed a normal ejection fraction. He should follow up closely with his tape control skin or spar mill operator and primary care doctor and can consider additional testing as an outpatient such as wearable threat monitoring analyst if his PCP or tape control skin or spar mill operator consider this necessary. Discharge orders & Medications Prescriptions: Continued vitamin E 200 unit capsule 400 unit PO DAILY RF: 0 atorvastatin 10 mg tablet 10 mg PO DAILY RF: 0 ascorbate calcium (vitamin C) 500 mg tablet 1 gram PO DAILY RF: 0 vitamin B complex [B Complex-Vitamin B12] tablet 1 tab PO DAILY RF: 0 finasteride 1 mg tablet 1 mg PO DAILY RF: 0 cholecalciferol (vitamin D3) 1,000 unit capsule 1,000 unit PO DAILY RF: 0 alfuzosin 10 mg tablet extended release 24 hr 10 mg PO DAILY RF: 0 ketorolac 0.4 % drops 1 drp EYE-LEFT RF: 0 Lumigan 0.01 % drops EYE-LEFT DAILY RF: 0 Systane (propylene glycol) 1 drp EYE-BOTH TID RF: 0 Adult Aspirin 81 mg PO DAILY RF: 0 melatonin 5 mg PO DAILY RF: 0 Follow up/Referrals: Saroj Malik MD [Primary Care Provider] - Diet/Activity/Treatments Diet: Carb-consistent/Diabetic, Low-fat, Low-sodium and Low-cholesterol Discharge Data Primary Care Provider: Saroj Malik V Attending Provider: Wallace Mcgowan VTE Deep Vein Thrombosis/Pulmonary Embolism Present on Admission: No MIPS - DC The patient has current or prior documentation of left ventricular ejection fraction (LVEF) less than 40%, or moderate or severely depressed left ventricular systolic function.: No
[2020-07-01] MEDS: ENOXAPARIN 40 MG/0.4 ML SYRINGE SUBCUT (09:17)
[2020-07-01] MEDS: ASPIRIN EC 81 MG TABLET PO (09:17)
[2020-07-01 09:57] VITALS: O2SAT 97
[2020-07-01 12:00] VITALS: BP 147/70; PULSE 57; RESP 23; TEMP 36.1; O2SAT 97
--- NOTE | 2020-07-01 13:11 | PM.TREADMILL ---
Cardiac Stress Test Report Referral & Results Date Patient Seen: 07/01/20 Time Patient Seen: 13:11 Requesting provider: Wallace Mcgowan Indication: High heart rate Rest ECG: Sinus bradycardia with incomplete RBBB Procedure Note: Standard Israel protocol, 5:16, 6.2 METS Good exercise capacity, MISAEL -5% Normal hemodynamic response to exercise No chest pain or anginal symptoms No significant ST changes at peak exercise Rare PVC Impression: Normal Lexiscan stress test Nuclear images pending Please note: Actual ECG tracings can be found in the PACS system.
[2020-07-01] MEDS: SYSTANE EYE DROPS 1 EACH EYE-BOTH (14:45)
[2020-07-01] MEDS: EYE EYE-LEFT (14:45)
[2020-07-01] MEDS: KETOROLAC 0.4% EYE-LEFT (14:45)
--- NOTE | 2020-07-01 15:52 | CM.DANOTE ---
Patient is an 80 yo male who was admitted on 06/30/20 for Chest Pain. Pt has [facility] for insurance and his PCP is Dr. Saroj Malik. EMR was reviewed. Per MD, pt with hx of CABG and currently admitted with chest pain and SOB which seem to have resolved. Echo and Stress test ordered for today and pending test results likely d/c home tonight. SW met briefly bedside with pt and spouse and pt requesting limited discussion as he is exhausted. Pt and spouse live at home in [place] and are fairly active and independent at baseline and deny and hx of SNF. Pt and spouse hopeful for d/c home this evening and do not anticipate any d/c planning needs. Plan: SW to follow for Echo and stress test results to confirm safe d/c home with spouse and any further identified needs. LAUREN Lamb
[2020-07-01 16:31] VITALS: BP 125/69; PULSE 60; RESP 19; TEMP 36.6; O2SAT 97
--- NOTE | 2020-07-01 17:21 | DI.NM.S_ITS ---
DATE OF SERVICE: 07/01/2020 PROCEDURE: Exercise perfusion study. INDICATIONS: History of bypass surgery, hypertension, hyperlipidemia, chest pain, shortness of breath, palpitation. RADIOPHARMACEUTICAL: 25.1 millicurie technetium-99m Myoview IV was injected at stress and 12.6 millicurie technetium-99m Myoview IV was injected at rest. CARDIAC STRESS: This is a one day protocol. The patient underwent exercise perfusion study under the supervision of an attending staff. The patient walked on Israel protocol for 5 minutes and 16 seconds, achieved 94 percent of target heart rate and normal blood pressure response. Baseline blood pressure 140/70. Peak blood pressure 174/78. No anginal symptoms. The patient felt fatigue. Baseline rhythm was sinus with right bundle branch block. During stress, no convincing ischemic changes seen. Occasional PVCs were seen without any ventricular tachycardia. Functional aerobic impairment -5 percent and 6.2 METs of workload. RAW DATA: There is increased subdiaphragmatic activity. The patient's weight is 210 pounds. GATED STUDY: Stress LV ejection fraction 70 percent without any obvious wall motion abnormalities. Resting end-diastolic volume 104 mL. TID ratio 0.93, which is within normal limits. Lung/heart ratio 0.34, which is within normal limits. MYOCARDIAL PERFUSION: Stress supine, resting supine and stress prone images were compared to each other. Stress supine and resting supine images revealed moderate size, mild to moderately decreased perfusion of inferior wall, inferoapex, as well as basal inferior lateral wall, which got significantly improved during prone images suggestive of diaphragmatic tissue attenuation artifact. No reversible ischemia. CONCLUSION: I will call this study likely a normal myocardial perfusion study with evidence of diaphragmatic tissue attenuation artifact, as stated above, which got resolved during prone images. Good exercise tolerance. Functional aerobic impairment -5 percent. Normal hemodynamic response. Preserved left ventricular function. The patient had a perfusion study in January,, at that time also patient had a similar perfusion defect, which got improved during prone images. In view of absence of ischemia, good exercise tolerance, preserved left ventricular function, overall this is a low-risk myocardial perfusion scan. Lucas Carr - Bal doc#: [id number]/job#: [id number] dd: 07/01/2020 16:34:00 dt: 07/01/2020 17:11:00 DICTATING MD/COPIES TO: Leslie Santos MD COPIES MNE: JACQUI;
--- NOTE | 2020-07-01 18:05 | PC.NURSE ---
Patient discharged to home. Discharge instructions given, no new meds, instructed to follow up with PCP and ball thread machine tender. Patient is stable, no chest pain, vitals WNL. Home medications were brought up by pharmacy and given back to patient. IV out, tele off. Patient has no concerns or questions about discharge.
== END 2020-07-01 18:24 | disposition home or self-care (01) ==
LOC: ED 14:41 → AC 14:53 → ICU 16:32
PROVIDERS: Admitting Provider Internal Medicine; Emergency Provider Emergency Medicine; PCP Internal Medicine; Referring Provider Emergency Medicine; Visit Provider Internal Medicine
DX: R00.2 Palpitations (principal); R06.02 Shortness of breath; I25.10 Atherosclerotic heart disease of native coronary artery without angina pectoris; E78.5 Hyperlipidemia, unspecified; N40.0 Benign prostatic hyperplasia without lower urinary tract symptoms; Z95.1 Presence of aortocoronary bypass graft; Z20.822 Contact with and (suspected) exposure to COVID-19
CPT/HCPCS: 36415; 71045; 78452; 80048; 80053; 82550; 82553; 83690; 84484; 85025; 85610; 85730; 87635; 93005; 93017; 93306; 96372; 99284; C9803; G0378; A9502; J1650

== ENCOUNTER → 2020-07-15 13:16 | Outpatient (CLI) | payer OTHER, SELFPAY ==
[2020-06-30 16:39] VITALS: BMI 30.1
--- NOTE | 2020-08-12 09:25 | P.HOLT.S_ITS ---
Museum Exhibit Designer Report Referral & Results Date Patient Seen: 07/15/20 Requesting provider: Saroj Malik Indication: Tachycardia Duration of monitoring (days): 7 Diary information: There was 1 patient triggered event and 1 patient diary entry Patient triggered event was associated with sinus rhythm only Patient diary entry was associated sinus rhythm and PVCs Data: Minimum heart rate identified was 41 beats per minute at 05:24 on 07/17/2020 Maximum sinus heart rate was 111 beats per minute at 11:33 on 07/18/2020 Maximum overall heart rate was 182 beats per minute at 10:53 on 07/16/2020 during a 5 beat run of SVT Less than 1% of identified beats were ventricular or supraventricular ectopic in origin, which would classify them as rare. There were 10 runs of SVT/atrial tachycardia the fastest being the 5 beat run noted above the longest lasting 20 beats at a rate of 91 beats per minute which suggest strongly atrial tachycardia rather than true SVT Impression: Basically unremarkable 7 day applications project manager showing very rare very brief runs of SVT and rare PACs and PVCs
== END ==
PROVIDERS: PCP Internal Medicine; Referring Provider Internal Medicine; Visit Provider Internal Medicine
DX: R00.0 Tachycardia, unspecified (principal)
CPT/HCPCS: 93246; 93248

== ENCOUNTER → 2020-07-15 14:58 | Outpatient (CLI) | payer OTHER, SELFPAY ==
[2020-06-30 16:39] VITALS: BMI 30.1
--- NOTE | 2020-07-15 14:59 | DI.CT.S_ITS ---
PROCEDURE: CT ABDOMEN PELVIS W CON INDICATIONS: Intra-abdominal and pelvic swelling, mass and lump TECHNIQUE: After the administration of oral and intravenous contrast, axial sections were acquired from the lung bases to the pubic symphysis. Coronal and sagittal reformats were performed. For radiation dose reduction, the following was used: automated exposure control, adjustment of mA and/or kV according to patient size. COMPARISON:[facility], CT, ABDOMEN/PELVIS WITH CONTRAST, 09/22/2016, 9:19. [facility], CT, ABDOMEN/PELVIS WITH CONTRAST, 02/26/2015, 12:11. FINDINGS: Image quality: Excellent. Lung bases: Unremarkable. Heart: No significant findings. ABDOMEN: Liver: Unremarkable. Gallbladder: Unremarkable Biliary ducts: Unremarkable. Pancreas: Unremarkable. Spleen: Unremarkable. Adrenal Glands: Unremarkable. Kidneys and Ureters: Unremarkable. Stomach and Bowel: Stomach, small bowel loops, and colon are unremarkable. Mild colonic obstipation. Peritoneum: No abnormal intraperitoneal fluid. No free air. Ventral Wall: No hernia. Abdominal Nodes: No retroperitoneal or mesenteric adenopathy by size criteria. Vessels: Aorta and inferior vena cava are normal in size. PELVIS: Pelvic Organs: Unremarkable. Bladder: Unremarkable. Pelvic Nodes: No enlarged lymph nodes. Miscellaneous: No inguinal hernias are seen. Bones: Unremarkable. IMPRESSION: Mild colonic obstipation at the colon, no evidence of infection or neoplasm. No adenopathy is seen. Dictated by: Romeo Sullivan M.D. on 07/15/2020 at 17:14 Approved by: Romeo Sullivan M.D. on 07/15/2020 at 17:16
== END ==
PROVIDERS: PCP Internal Medicine; Referring Provider Internal Medicine; Visit Provider Internal Medicine
DX: R19.00 Intra-abdominal and pelvic swelling, mass and lump, unspecified site (principal); K59.00 Constipation, unspecified; R00.0 Tachycardia, unspecified
CPT/HCPCS: 74177; 93246; Q9967

== ENCOUNTER 2020-07-24 06:19 | Emergency (ER) | payer OTHER, SELFPAY ==
[2020-06-30 16:39] VITALS: BMI 30.1
[2020-07-24 06:29] VITALS: BP 190/81; PULSE 57; RESP 17; TEMP 36.5; O2SAT 100; BMI 30.1
--- NOTE | 2020-07-24 06:44 | ED.ALLEREA ---
HPI - Allergic Reaction General Chief complaint: Allergic Reaction Stated complaint: Hives x2 days Time Seen by Provider: 07/24/20 06:29 Source: patient Mode of arrival: Ambulatory Limitations: no limitations History of Present Illness HPI narrative: Patient is a 80-year-old male presents with pruritic rash ongoing for 2 days. He had a Xero patch placed for cardiac monitoring 1 week ago. He slowly started developing a rash around the patch and by the 7 day he was so pruritic and covered in hives that he has to take it off. He has been taking Benadryl without any relief and is still itching. He denies any difficulty breathing lip swelling or tongue swelling MD complaint: hives Onset (ago): week(s) (1) Symptoms: rash and itching Treatment prior to arrival: benadryl Related Data Home Medications Medication Instructions Recorded Confirmed alfuzosin 10 mg tablet,extended 10 mg PO DAILY 12/18/17 06/30/20 release 24 hr ascorbate calcium (vitamin C) 500 1 gram PO DAILY 12/18/17 06/30/20 mg tablet atorvastatin 10 mg tablet 10 mg PO DAILY 12/18/17 06/30/20 cholecalciferol (vitamin D3) 25 1,000 unit PO DAILY 12/18/17 06/30/20 mcg (1,000 unit) capsule finasteride 1 mg tablet 1 mg PO DAILY 12/18/17 06/30/20 vitamin B complex 1 tab PO DAILY 12/18/17 06/30/20 vitamin E 200 unit capsule 400 unit PO DAILY 12/18/17 06/30/20 Adult Aspirin 81 mg PO DAILY 06/30/20 06/30/20 Lumigan drp EYE-LEFT DAILY 06/30/20 Systane (propylene glycol) 1 drp EYE-BOTH TID 06/30/20 06/30/20 ketorolac 1 drp EYE-LEFT 06/30/20 melatonin 5 mg PO DAILY 06/30/20 06/30/20 Previous Rx's Medication Instructions Recorded prednisone 40 mg PO DAILY #10 tab 07/24/20 Allergies Allergy/AdvReac Type Severity Reaction Status Date / Time azithromycin AdvReac itching, Verified 12/18/17 15:17 hives horse serum Allergy Blood Uncoded 12/18/17 15:17 poisoning Review of Systems Review of Systems Narrative: GENERAL: Denies chills,fever HEENT: Denies throat pain RESPIRATORY: Denies dyspnea, cough, wheezing CARDIOVASCULAR: Denies chest pain, palpitations GASTROINTESTINAL: Denies nausea, vomiting MUSCULOSKELETAL: Denies extremity pain, injury SKIN: See HPI NEUROLOGIC: Denies weakness, dizziness, headache, numbness 8 point review of systems is negative except for those stated above and HPI Patient History Medical History (Updated 07/24/20 @ 07:16 by Sammie Khoury DO) Benign prostatic hyperplasia Coronary artery disease Hyperlipidemia Surgical History History of colonoscopy History of heart bypass surgery (~2000) History of tonsillectomy (~194) History of tonsillectomy Family History Father Cancer Mother Cancer Social History marital status: household members: spouse occupational status: previously employed Smoking Status: Never smoker alcohol intake: current substance use type: does not use Smoking Status: Never smoker alcohol intake frequency: a few times a month Substance Use Type: does not use Exam Initial Vital Signs Initial Vital Signs: Vital Signs Temperature 97.7 F 07/24/20 06:29 Pulse Rate 57 L 07/24/20 06:29 Respiratory Rate 17 07/24/20 06:29 Blood Pressure 190/81 H 07/24/20 06:29 Pulse Oximetry 100 07/24/20 06:29 GENERAL: Alert pleasant well-appearing 80-year-old male and in [no acute] distress. HEENT: Head atraumatic,EOMI, pupils reactive, no stridor CARDIOVASCULAR: Regular rate and rhythm without murmurs, rubs or gallops. RESPIRATORY: Breath sounds equal bilaterally, no wheezes rales or rhonchi. EXTREMITIES: Normal range of motion, no clubbing or edema. Neurovascularly intact NEUROLOGICAL: Alert and oriented x4.Normal gait and speech. SKIN: Hives noted on torso neck and face Course Orders Ordered: Discontinued Medications Prednisone (Prednisone 20 Mg Tablet) 40 mg PO NOW ONE Stop: 07/24/20 06:51 Last Admin: 07/24/20 07:06 Dose: 40 mg Documented by: Vital Signs Vital signs: Vital Signs - 8 hr 07/24/20 06:29 Temperature 97.7 F Pulse Rate 57 L Respiratory Rate 17 Blood Pressure 190/81 H Pulse Oximetry 100 MDM - Allergic Reaction MDM Narrative Medical decision making narrative: Patient showing no sign of anaphylaxis but has obvious hives over torso Discharge Plan Departure Patient Disposition: Home Clinical Impression: Urticaria Instructions: DI for Hives Activity Restrictions/Additional Instructions: *You have been diagnosed with hives *What to do: Your rash should get better with prednisone *Continue to take medications as directed Prednisone 40 mg once a day for 5 days Benadryl 25-50 mg every 6 hours if needed for severe itching *Follow up with your primary care provider in 2-3 days *Return to ER if you should have difficulty breathing, worsening rash or any new, worsening or concerning symptoms Prescriptions: New prednisone 20 mg tablet 40 mg PO DAILY Qty: 10 RF: 0 No Action vitamin E 200 unit capsule 400 unit PO DAILY RF: 0 atorvastatin 10 mg tablet 10 mg PO DAILY RF: 0 ascorbate calcium (vitamin C) 500 mg tablet 1 gram PO DAILY RF: 0 vitamin B complex [B Complex-Vitamin B12] tablet 1 tab PO DAILY RF: 0 finasteride 1 mg tablet 1 mg PO DAILY RF: 0 cholecalciferol (vitamin D3) 1,000 unit capsule 1,000 unit PO DAILY RF: 0 alfuzosin 10 mg tablet extended release 24 hr 10 mg PO DAILY RF: 0 ketorolac 0.4 % drops 1 drp EYE-LEFT RF: 0 Lumigan 0.01 % drops EYE-LEFT DAILY RF: 0 Systane (propylene glycol) 1 drp EYE-BOTH TID RF: 0 Adult Aspirin 81 mg PO DAILY RF: 0 melatonin 5 mg PO DAILY RF: 0 Referrals: Saroj Malik MD [Primary Care Provider] -
[2020-07-24] MEDS: predniSONE 20 MG TABLET 40 MG PO (07:06)
[2020-07-24 07:30] VITALS: BP 139/68; PULSE 51; RESP 16; O2SAT 98
== END 2020-07-24 07:30 | disposition home or self-care (01) ==
PROVIDERS: Emergency Provider Emergency Medicine; PCP Internal Medicine
DX: L50.9 Urticaria, unspecified (principal)
CPT/HCPCS: 99283

== ENCOUNTER → 2022-02-09 10:22 | Outpatient (CLI) | payer OTHER, SELFPAY ==
[2020-06-30 16:39] VITALS: BMI 30.1
--- NOTE | 2022-02-09 | DI.ECHO.S_ITS ---
[facility] +---------+ : : [address] : : : : [id number] : : : : Phone: [phone] Echocardiogram Report + + :Name: DOTTY DURAN Study Date: 02/09/2022 Height: 70 in : :[facility] ReadingLocation: Weight: 205 lb : : Gender: Male BSA: 2.1 m2 : :: 1940 Age: 82 yrs BP: 151/90 mmHg: :Reason For Study: DYSPNEA : :Ordering Physician: FARHEEN, : :TOSHIA Performed By: Yelena Gomes : :Referring: TOSHIA HWOARD : + + Interpretation Summary 1) Mildly icnreased left ventricular thickness (concentric) with normal size, normal wall motion, and normal systolic function (EF 60-65%). 2) Mildly enlarged right ventricle with normal function. 3) There is very mild aortic stenosis (valve area 2.1cm2, mean gradient 10mmHg, severity ratio 0.47) 4) The ascending aorta is mildly enlarged at 4.2cm. 5) Compared to the Echo done 07/01/2020, very mild aortic stenosis is present on this study. Procedure: A two-dimensional transthoracic echocardiogram with color flow and Doppler was performed. The study quality was technically adequate. Comparison is made with the echocardiogram of 07/01/2020. The patient was in sinus bradycardia with heart rates between 50-60 bpm during the exam. Left Ventricle: The left ventricle is normal in size. There is mild concentric left ventricular hypertrophy. The ejection fraction is estimated to be 60-65%. Left ventricular systolic function appears normal without focal wall motion abnormalities. Diastolic parameters suggest a relaxation abnormality of the left ventricle, consistent with probable normal filling pressures. Right Ventricle: The right ventricle is mildly dilated. The right ventricular systolic function is normal. Atria: The left atrium is moderately dilated. Right atrial size is normal. There is no Doppler evidence for an interatrial shunt. Mitral Valve: The mitral valve leaflets appear mildly thickened, but open well. There is mild mitral annular calcification. There is trace mitral regurgitation. Aortic Valve: The aortic valve is moderately calcified. There is discrete nodular thickening of the non- coronary cusp. There is mildly reduced leaflet mobility. There is moderate aortic valve sclerosis. The peak aortic velocity is 2.07 m/sec. The aortic valve mean gradient is 10 mmHg. There is mild aortic stenosis. No aortic regurgitation is present. Tricuspid Valve: The tricuspid valve is normal in structure and function. There is mild tricuspid regurgitation. The right ventricular systolic pressure is estimated to be at least 32 mmHg based on an estimated right atrial pressure of 3 mm Hg. Pulmonic Valve: The pulmonic valve leaflets are thin and pliable; valve motion is normal. There is mild pulmonic regurgitation. Great Vessels: The aortic root is normal size. The ascending aorta is mildly enlarged. The IVC is of normal diameter and collapses greater than 50% with a sniff. This suggests a low right atrial pressure of 3 mm Hg. Pericardium/ Pleura There is no pericardial effusion. There is no pleural effusion. MMode/2D Measurements & Calculations LVIDd: 4.9 cm LVOT diam: 2.4 cm LVIDs: 3.6 cm Ao root diam: 3.6 cm FS: 26.6 % asc Aorta Diam: 4.2 cm EPSS: 1.4 cm Ao Arch Diam (Prox Trans): 3.9 cm IVSd: 1.0 cm LVPWd: 1.1 cm LV lundberg. diameter/BSA (cm/m^2): 2.3 LV sys. diameter/BSA (cm/m^2): 1.7 LA A2 area: 25.1 cm2 RA long axis: 5.7 cm LA A4 area: 21.3 cm2 RA area: 16.2 cm2 LA length (vol): 5.7 cm RA vol: 39.4 ml LA vol: 79.4 ml RA : 18.7 ml/m2 LA vol index: 37.6 ml/m2 IVC diam: 1.9 cm RVD1 (basal): 4.1 cm RVD2 (mid): 3.3 cm TAPSE: 1.8 cm Doppler Measurements & Calculations Ao V2 max: 207.5 cm/sec LVOT Max Jabari: 113.3 cm/sec Ao V2 mean: 146.3 cm/sec LV V1 max P.1 mmHg Ao max P.2 mmHg LV V1 VTI: 24.2 cm Ao mean P.2 mmHg SHERWIN(I,D): 2.1 cm2 Ao V2 VTI: 51.1 cm SHERWIN(V,D): 2.5 cm2 sev ratio: 0.47 SHERWIN indexed to BSA (cm^2/m^2): 1.0 MV E max jabari: 82.4 cm/sec TR max jabari: 268.4 cm/sec MV A max jabari: 83.8 cm/sec TR max P.8 mmHg MV E/A: 0.98 PA V2 max: 132.4 cm/sec Med Peak E' Jabari: 7.1 cm/sec PA V2 mean: 84.0 cm/sec E/E' med: 11.6 PA mean P.4 mmHg Lat Peak E' Jabari: 8.2 cm/sec PA pr(Accel): 41.3 mmHg E/E' lat: 10.0 E/e' average: 10.8 MV dec time: 0.22 sec SV(LVOT): 109.5 ml Reading Physician:04:16 PM
== END ==
PROVIDERS: PCP Internal Medicine; Referring Provider Internal Medicine Cardiovascular Disease; Visit Provider Internal Medicine Cardiovascular Disease
DX: R06.09 Other forms of dyspnea (principal); I08.3 Combined rheumatic disorders of mitral, aortic and tricuspid valves; I77.89 Other specified disorders of arteries and arterioles
CPT/HCPCS: 93306

== ENCOUNTER → 2022-02-10 09:32 | Outpatient (CLI) | payer OTHER, SELFPAY ==
[2020-06-30 16:39] VITALS: BMI 30.1
[2022-02-10 11:01] LABS: Add Manual Diff / Slide Review NO; Basophils Absolute Auto 0 /uL (0-100); Eosinophils Absolute Auto 200 /uL (0-450); Hematocrit 43.7 % (41-53); Hemoglobin 14.3 g/dL (13.5-17.5); Lymphocytes Absolute Auto 1800 /uL (1100-4500); Mean Corpuscular HGB Conc 32.8 % (30-36); Mean Corpuscular Hemoglobin 30.9 PG (26-34); Mean Corpuscular Volume 94.1 fL (80-100); Monocytes Absolute Auto 500 /uL (0-900); Monocytes Percent Auto 9.4 % (3-14); Neutrophils Absolute Auto 2700 /uL (1500-7000); Neutrophils Percent Auto 52.6 % (50-75); Platelet Count 200 X10^3/uL (150-400); Red Blood Cell Count 4.64 X10^6/uL (4.5-5.9); Red Cell Distribution Width 14.3 % (11.6-14.8); White Blood Cell Count 5.2 X10^3/uL (4.5-11.0)
[2022-02-10 11:18] LABS: BUN Creatinine Ratio 16.9 (6-22); Blood Urea Nitrogen 14 mg/dL (9-20); Calcium 9.3 mg/dL (8.4-10.2); Carbon Dioxide 29 mmol/L (22-32); Chloride 102 mmol/L (98-107); Cholesterol 215 mg/dL (140-199); Estimated Glomerular Filt Rate > 60 mL/min (>60); Glucose 98 mg/dL (80-110); HDL Cholesterol 44 mg/dL (40-60); HEMOLYSIS < 15 (0-50); LDL Cholesterol Calculated 157 mg/dL (<100); Potassium 4.5 mmol/L (3.4-5.1); Sodium 137 mmol/L (137-145); Triglycerides 71 mg/dL (35-150)
== END ==
PROVIDERS: PCP Internal Medicine; Referring Provider Internal Medicine Cardiovascular Disease; Visit Provider Internal Medicine Cardiovascular Disease
DX: I25.10 Atherosclerotic heart disease of native coronary artery without angina pectoris (principal)
CPT/HCPCS: 36415; 80048; 80061; 85025

== ENCOUNTER → 2022-02-25 12:23 | Outpatient (CLI) | payer OTHER, SELFPAY ==
[2022-02-21 14:28] VITALS: BMI 30.1
--- NOTE | 2022-02-25 | DI.CT.S_ITS ---
PROCEDURE: CT ABDOMEN PELVIS W CON INDICATIONS: Left lower quadrant pain TECHNIQUE: After the administration of oral and intravenous contrast, axial sections were acquired from the lung bases to the pubic symphysis. Coronal and sagittal reformats were performed. For radiation dose reduction, the following was used: automated exposure control, adjustment of mA and/or kV according to patient size. COMPARISON:[facility], CT, CT ABDOMEN PELVIS W CON, 07/15/2020, 16:04. [facility], CT, ABDOMEN/PELVIS WITH CONTRAST, 09/22/2016, 9:19. FINDINGS: Image quality: Excellent. Lung bases: Unremarkable. Heart: No significant findings. ABDOMEN: Liver: Unremarkable. Gallbladder: Unremarkable. Biliary ducts: Unremarkable. Pancreas: Unremarkable. Spleen: Unremarkable. Adrenal Glands: Unremarkable. Kidneys and Ureters: Unremarkable, with anterior rotation of the left renal hilum again noted. Stomach and Bowel: Stomach, small bowel loops, and colon are unremarkable. Peritoneum: No abnormal intraperitoneal fluid. No free air. Ventral Wall: No hernia. Abdominal Nodes: No retroperitoneal or mesenteric adenopathy by size criteria. Vessels: Aorta and inferior vena cava are normal in size. PELVIS: Pelvic Organs: Unremarkable. Bladder: Unremarkable. Pelvic Nodes: No enlarged lymph nodes. Miscellaneous: No inguinal hernias are seen. Bones: Unremarkable. IMPRESSION: Normal for age, source of left lower quadrant pain not identified. No sign of diverticulitis, colitis, or underlying infection or neoplasm. Dictated by: Romeo Sullivan M.D. on 02/25/2022 at 14:46 Approved by: Romeo Sullivan M.D. on 02/25/2022 at 14:50
== END ==
PROVIDERS: PCP Internal Medicine; Referring Provider Internal Medicine; Visit Provider Internal Medicine
DX: R10.32 Left lower quadrant pain (principal)
CPT/HCPCS: 74177; Q9967

== ENCOUNTER → 2022-03-28 08:19 | Outpatient (CLI) | payer OTHER, SELFPAY ==
[2022-02-21 14:28] VITALS: BMI 30.1
[2022-03-28 09:48] LABS: Add Manual Diff / Slide Review NO; Basophils Absolute Auto 100 /uL (0-100); Basophils Percent Auto 1.1 % (0-2); Eosinophils Absolute Auto 200 /uL (0-450); Hematocrit 41.5 % (41-53); Hemoglobin 13.9 g/dL (13.5-17.5); Lymphocytes Absolute Auto 1900 /uL (1100-4500); Mean Corpuscular HGB Conc 33.5 % (30-36); Mean Corpuscular Hemoglobin 31.5 PG (26-34); Mean Corpuscular Volume 93.9 fL (80-100); Monocytes Absolute Auto 500 /uL (0-900); Monocytes Percent Auto 9.3 % (3-14); Neutrophils Absolute Auto 2800 /uL (1500-7000); Neutrophils Percent Auto 51.6 % (50-75); Platelet Count 181 X10^3/uL (150-400); Red Blood Cell Count 4.42 X10^6/uL (4.5-5.9); Red Cell Distribution Width 13.4 % (11.6-14.8); White Blood Cell Count 5.4 X10^3/uL (4.5-11.0)
[2022-03-28 10:46] LABS: BUN Creatinine Ratio 21.1 (6-22); Blood Urea Nitrogen 15 mg/dL (9-20); Calcium 9.3 mg/dL (8.4-10.2); Carbon Dioxide 26 mmol/L (22-32); Chloride 101 mmol/L (98-107); Estimated Glomerular Filt Rate > 60 mL/min (>60); Glucose 94 mg/dL (80-110); HEMOLYSIS < 15 (0-50); Potassium 4.7 mmol/L (3.4-5.1); Sodium 135 mmol/L (137-145)
== END ==
PROVIDERS: PCP Internal Medicine; Referring Provider Internal Medicine Cardiovascular Disease; Visit Provider Internal Medicine Cardiovascular Disease
DX: E78.5 Hyperlipidemia, unspecified (principal)
CPT/HCPCS: 36415; 80048; 85025

== ENCOUNTER → 2022-03-30 09:42 | Outpatient (CLI) | payer OTHER, SELFPAY ==
[2022-02-21 14:28] VITALS: BMI 30.1
--- NOTE | 2022-03-30 18:03 | DI.NM.S_ITS ---
DATE OF SERVICE:10/28/2022 PROCEDURE PERFORMED: Exercise treadmill stress and rest myocardial perfusion imaging study with gating to assess ejection fraction and regional wall motion. ORDERING PROVIDER: Isabella Howard MD. INDICATIONS: The patient is an 82-year-old male with a history of bypass grafting who reports increased exertional dyspnea. EXERCISE TREADMILL TESTING: The patient was able to exercise for 5 minutes, 1 second on a standard [place] protocol suggesting fair exercise capacity with an MISAEL of -5%. He had a normal heart rate and blood pressure response to exercise, achieving a maximum heart rate of 124 BPM (90% of his predicted maximum). He had no chest pain or other anginal symptoms although did have some mild interscapular area pain early in recover which resolved promptly with rest. His resting ECG shows sinus rhythm with a RBBB but fairly normal ST segments. With stress, there were no significant ST segment shifts. He had occasional PACs, occasionally in 4-5 beat salvos, particularly in early recovery but no sustained complex ectopy. At 3 minutes, 50 seconds of exercise at a heart rate of 113 BPM, 25.4 mCi of technetium-99m Myoview was injected and he was imaged 20 minutes later using a gated SPECT acquisition protocol. Earlier in the day while at rest, he had been injected with 11.4 mCi of technetium-99m Myoview was imaged 20 minutes later, again using a gated SPECT acquisition protocol. FINDINGS: 1. Raw data: There is fair myocardial tracer uptake although somewhat increased right ventricular uptake. There is some evidence for diaphragmatic attenuation. The lung/heart ratio is normal at 0.31 with a normal TID ratio 0.76. 2. Quantitated gated SPECT: Post-stress ejection fraction is estimated at 75% without any focal wall motion abnormality and, specifically, the inferior wall appears to have normal contractility. The resting ejection fraction is 64% with a normal resting end-diastolic volume of 103 mL. Again, the right ventricular free wall appears to have increased tracer uptake, which can be a sign of a right ventricular overload state, but clinical correlation is recommended. 3. Myocardial perfusion imaging: Post-stress supine images show a fairly normal myocardial perfusion pattern with a mild defect at the base of the inferior wall, extending slightly into the mid inferior wall, but with complete resolution on the prone images suggesting this likely reflects diaphragmatic attenuation. The resting images show an identical perfusion pattern without any obvious areas of improvement. IMPRESSION: 1. Normal myocardial perfusion study for ischemia. 2. Mild fixed inferior wall perfusion defect that resolves on prone imaging, most consistent with diaphragmatic attenuation artifact. there is no compelling evidence for any myocardial ischemia or previous infarction. 3. Normal left ventricular size and function. There is evidence of increased right ventricular tracer uptake which can be a sign of a right ventricular overload condition but clinical correlation is recommended. 4. Fair exercise capacity without angina or ECG evidence of ischemia, although he did develop mild interscapular discomfort in recovery and had brief salvos of supraventricular tachycardia up to 4-5 beats, but no sustained arrhythmias. 5. Compared to his previous myocardial perfusion study on 07/01/2020, the patient had similar exercise capacity and the previous ejection fraction was 70% with an identical perfusion imaging pattern with a fixed inferior defect that resolved on prone imaging. Thus, there has been no significant change since the previous study. Lucas Carr - SIENA/david/PETRONA doc#: [id number]/job#: [id number] dd: 03/30/2022 17:29:00 dt: 03/30/2022 17:50:00 DICTATING MD/COPIES TO: Maxwell Donaldson MD; Isabella Howard MD COPIES MNE: ERNESTINA;
== END ==
PROVIDERS: PCP Internal Medicine; Referring Provider Internal Medicine Cardiovascular Disease; Visit Provider Internal Medicine Cardiovascular Disease
DX: R06.09 Other forms of dyspnea (principal); Z95.1 Presence of aortocoronary bypass graft
CPT/HCPCS: 78452; 93017; A9502

== ENCOUNTER → 2022-06-02 06:50 | Outpatient (CLI) | payer OTHER, SELFPAY ==
[2022-02-21 14:28] VITALS: BMI 30.1
[2022-06-02 09:06] LABS: Alanine Aminotransferase 40 IU/L (<50); Albumin 4.4 g/dL (3.5-5.0); Albumin Globulin Ratio 1.5 (1.0-2.8); Alkaline Phosphatase 87 U/L (38-126); Aspartate Aminotransferase 31 IU/L (17-59); Bilirubin Total 0.8 mg/dL (0.2-1.3); Blood Urea Nitrogen 18 mg/dL (9-20); Calcium 9.3 mg/dL (8.4-10.2); Carbon Dioxide 29 mmol/L (22-32); Chloride 102 mmol/L (98-107); Cholesterol 133 mg/dL (140-199); Estimated Glomerular Filt Rate > 60 mL/min (>60); Globulin 2.9 g/dL (1.7-4.1); Glucose 95 mg/dL (80-110); HDL Cholesterol 45 mg/dL (40-60); HEMOLYSIS < 15 (0-50); LDL Cholesterol Calculated 77 mg/dL (<100); Potassium 4.2 mmol/L (3.4-5.1); Sodium 137 mmol/L (137-145); Total Protein 7.3 g/dL (6.3-8.2); Triglycerides 56 mg/dL (35-150)
== END ==
PROVIDERS: PCP Family Medicine; Referring Provider Family Medicine; Visit Provider Family Medicine
DX: E78.5 Hyperlipidemia, unspecified (principal); Z12.5 Encounter for screening for malignant neoplasm of prostate; I25.10 Atherosclerotic heart disease of native coronary artery without angina pectoris; K63.5 Polyp of colon; N40.0 Benign prostatic hyperplasia without lower urinary tract symptoms
CPT/HCPCS: 36415; 80053; 80061; G0103

== ENCOUNTER → 2022-06-11 13:21 | Outpatient (CLI) | payer OTHER, SELFPAY ==
[2022-02-21 14:28] VITALS: BMI 30.1
--- NOTE | 2022-06-11 | DI.MRI.S_ITS ---
PROCEDURE: MR LUMBAR SPINE WO CON INDICATIONS: Radiculopathy, lumbar region TECHNIQUE: Noncontrast sagittal T1 spin echo and T2 fast echo, sagittal STIR, and T2 fast spin echo through the lumbar spine. In cases with scoliosis, additional coronal T2 fast spin echo may be performed. COMPARISON: None. FINDINGS: Image quality: Excellent. Alignment and Curvature: There is normal bony alignment. Bone Marrow: Marrow is of normal overall signal. No acute vertebral body compression fractures. Spinal Cord: Conus medullaris terminates at the L1 level. Visualized cord demonstrates normal signal and size. Paraspinous Soft Tissues: No paravertebral masses. T12-L1: Mild endplate degenerative changes. No significant disc bulge. The foramina and central canal are patent. L1-L2: Mild endplate degenerative changes. No significant disc bulge. The foramina and central canal are patent. L2-L3: No significant disc bulge. The foramina and central canal are patent. L3-L4: Mild endplate degenerative changes. No significant disc bulge. The foramina and central canal are patent. L4-L5: 2 mm grade 1 anterolisthesis with mild diffuse disc bulge. Bilateral facet hypertrophy. The central canal is patent. L5-S1: Diffuse disc bulge. Bilateral facet hypertrophy. [id number] mild foraminal stenosis. The left foramen is patent. The central canal is patent. IMPRESSION: Multilevel, relatively mild given patient age, lumbar spondylosis causing foraminal stenosis as above. No significant central canal stenosis. Dictated by: Jacoby Shaikh M.D. on 06/13/2022 at 12:51 Approved by: Jacoby Shaikh M.D. on 06/13/2022 at 12:59
== END ==
PROVIDERS: PCP Family Medicine; Referring Provider Physical Medicine & Rehabilitation Pain Medicine; Visit Provider Physical Medicine & Rehabilitation Pain Medicine
DX: M47.26 Other spondylosis with radiculopathy, lumbar region (principal); M47.27 Other spondylosis with radiculopathy, lumbosacral region; M48.061 Spinal stenosis, lumbar region without neurogenic claudication; M48.07 Spinal stenosis, lumbosacral region
CPT/HCPCS: 72148

== ENCOUNTER 2022-06-16 10:16 | Day surgery (SDC) | payer OTHER, SELFPAY ==
[2022-02-21 14:28] VITALS: BMI 30.1
[2022-06-16] VITALS (7 sets, daily range): BP systolic 128–191; BP diastolic 73–98; PULSE 55–63; RESP 12–17; TEMP 36.3–36.6; O2SAT 93–100; BMI 29.4
--- NOTE | 2022-06-16 10:36 | P.HP_ITS ---
History of Present Illness History of Present Illness Date Patient Seen: 06/16/22 Time Patient Seen: 10:36 [place] [facility] [place]ative: Lucas is an 82-year-old man who here for colonoscopy today. He believes he had polyps removed years ago during a prior colonoscopy. He has had a cousin of colon cancer. No first-degree relatives have had colon cancer. He reports that he is had left lower abdominal pain for several years with no findings to explain his pain on a CT scan of the abdomen and pelvis from February of this year. [facility] Medical History Agent orange exposure (~1966) Anxiety Benign prostatic hyperplasia (~1999) Cataracts, bilateral (~1994) Chronic back pain Chronic headache (~2004) Colon polyps (~1989) Coronary artery disease Cyanosis of skin Depression Foot pain Fracture Glaucoma Hearing loss Hemorrhoid (~1974) History of depression History of high cholesterol History of urinary incontinence (~2004) Hx of neurological disease Hyperlipidemia Injury of cervical spine (~1960) Lower urinary tract symptoms Macular degeneration (~1999) Measles Mumps Muscle twitch (~1966) Precancerous skin lesion PTSD (post-traumatic stress disorder) (~1966) Recurrent sinusitis (~1969) Rosacea (~1994) Secondhand smoke exposure Sleep apnea (~2009) Sternum pain Tinnitus (~1974) Tuberculosis (~1965) Wheezing Surgical History Anesthesia History of colonoscopy History of heart bypass surgery (~2000) History of tonsillectomy (~1945) Hx of circumcision Hx of cystoscopy Family History Father Cancer Mother Cancer CVA (cerebral vascular accident) Grandfather History of heart disease Grandmother Cancer Social History marital status: number of children: 2 household members: spouse occupational status: previously employed Smoking Status: Never smoker alcohol intake: current substance use type: does not use caffeine: Yes Type(s) of exercise: walking frequency: 1-2 times per week Meds Home Medications and Allergies Home Medications Medication Instructions Recorded Confirmed Type alfuzosin 10 mg tablet,extended 10 mg PO DAILY 12/18/17 05/02/22 History release 24 hr cholecalciferol (vitamin D3) 25 1,000 unit PO DAILY 12/18/17 05/02/22 History mcg (1,000 unit) capsule finasteride 1 mg tablet 1 mg PO DAILY 12/18/17 05/02/22 History vitamin B complex (B 1 tab PO DAILY 12/18/17 05/02/22 History Complex-Vitamin B12 tablet) Systane (propylene glycol) 1 drp EYE-BOTH TID 06/30/20 05/02/22 History bimatoprost 0.01 % eye drops drp EYE-LEFT DAILY 06/30/20 05/02/22 History ([place]umigan) ketorolac 0.4 % eye drops 1 drp EYE-LEFT 06/30/20 05/02/22 History ascorbate calcium (vitamin C) 500 1 g PO DAILY 04/11/22 05/02/22 History mg tablet aspirin 81 mg tablet,delayed 81 mg PO DAILY 04/11/22 05/02/22 History release (Adult Low Dose Aspirin) melatonin 5 mg tablet 5 mg PO BEDTIME PRN 04/11/22 05/02/22 History rosuvastatin 5 mg tablet 5 mg PO DAILY 04/11/22 05/02/22 History vitamin E 200 unit capsule 400 unit PO QWEEK 04/11/22 05/02/22 History Allergies Allergy/AdvReac Type Severity Reaction Status Date / Time adhesive tape Allergy Mild Verified 06/16/22 10:36 azithromycin AdvReac itching, Verified 06/16/22 10:36 hives horse serum Allergy Severe Blood Uncoded 06/16/22 10:36 poisoning Exam Const General: No acute distress Assessment & Plan Assessment and plan (1) History of colon polyps: Status: Acute Plan We reviewed the risks and benefits of colonoscopy for screening and he would like to proceed.
[2022-06-16] MEDS: LACTATED RINGERS 1,000 ML 42 ML IV (10:54)
--- NOTE | 2022-06-16 11:25 | PM.OP.COLON ---
Operative Date/Time/Diagnoses Date of procedure: 06/16/22 Time of procedure: 11:25 Pre-op diagnosis: Colon cancer screening Post-op diagnosis: same Procedure & Clinicians Study performed: Colonoscopy Same procedure as scheduled: Yes Surgeon: Darryl Hammonds Procedure Notes Procedure in detail: Surgeon: Darryl Hammonds MD Anesthesia: Arian Kearney MD Procedure: The patient was brought to the endoscopy suite, placed in left lateral decubitus position. The patient was connected to monitoring devices. A time-out was performed. Sedation was administered. Once the patient was adequately sedated, a digital rectal exam was performed and was normal. The scope was then inserted and advanced to the cecum where the appendiceal orifice was identified and photographed. The scope was then slowly withdrawn over greater than 6 minutes. The mucosa was thoroughly inspected. No polyps were seen. The scope was retroflexed in the rectum. No abnormalities were seen. The scope was straightened and removed. The patient was awakened and brought to recovery. Scope withdrawal time: 9 minutes Sedation time: 18 minutes EBL: 0 Findings: Normal colon Post-procedure Disposition: PACU
== END 2022-06-16 12:05 | disposition home or self-care (01) ==
PROVIDERS: PCP Family Medicine; Referring Provider Surgery; Visit Provider Surgery
PROC: 0DJD8ZZ Inspection of Lower Intestinal Tract, Via Natural or Artificial Opening Endoscopic (ICD-10-PCS; CPT 45378; principal; 2022-06-16 10:45)
DX: Z12.11 Encounter for screening for malignant neoplasm of colon (principal); Z86.010 Personal history of colon polyps
CPT/HCPCS: 45378; J2704; J3010

== ENCOUNTER → 2022-07-07 11:40 | Outpatient (CLI) | payer OTHER, SELFPAY ==
[2022-06-21 12:56] VITALS: BMI 30.1
== END ==
PROVIDERS: Family Provider Family Medicine; PCP Family Medicine; Referring Provider Urology; Visit Provider Urology
DX: N40.1 Benign prostatic hyperplasia with lower urinary tract symptoms (principal); N13.8 Other obstructive and reflux uropathy; R39.9 Unspecified symptoms and signs involving the genitourinary system; Z77.22 Contact with and (suspected) exposure to environmental tobacco smoke (acute) (chronic); Z77.098 Contact with and (suspected) exposure to other hazardous, chiefly nonmedicinal, chemicals
CPT/HCPCS: 87086; 99214

== ENCOUNTER 2022-07-11 12:00 | Day surgery (SDC) | payer OTHER, SELFPAY ==
[2022-06-21 12:56] VITALS: BMI 30.1
[2022-07-06 09:48] VITALS: BMI 29.4
[2022-07-11] VITALS (12 sets, daily range): BP systolic 114–191; BP diastolic 71–95; PULSE 55–68; RESP 10–18; TEMP 36.4–36.5; O2SAT 93–100; BMI 30.8
--- NOTE | 2022-07-11 13:03 | PM.PREOP ---
Pre-operative Note COVID-19 COVID-19 status: Not tested Criteria for continued procedure: Non-surgical alternatives not available or appropriate per current SOC Interval Note History & Physical reviewed/Exam performed by Physician: Yes Changes to H&P: No
[2022-07-11] MEDS: LACTATED RINGERS 1,000 ML 21 ML IV (13:18)
[2022-07-11] MEDS: CEFAZOLIN 2 GM/100 ML PREMIX 100 ML IV (13:35)
--- NOTE | 2022-07-11 13:43 | SUR.OPER ---
Lithotomy on padded OR bed, head on pillow, arms secured on padded arm boards at <90 degrees abduction. Legs secured in padded yellow fins stirrups.
--- NOTE | 2022-07-11 13:47 | SUR.OPER ---
See note from vendor for laser settings.
--- NOTE | 2022-07-11 14:32 | PM.OP.1 ---
Procedure & Clinicians Procedure: Photo vaporization of the prostate Same procedure as scheduled: Yes Indications: This very pleasant 82-year-old male who presented with complaints of profound bladder outlet obstruction, lower urinary tract symptoms. He was found to have an obstructing prostate and the 51 g range. And has selected photo vaporization of the prostate to treat his prostatic obstruction. He presents this time for that procedure. Surgeon: Jerome Vickers Click Yes if Unassisted: Yes Anesthesia Type: General Operative Notes Findings: Urethral meatus and urethral normal with normal mucosa sphincter as well coapted. Prostate shows bilobar obstructive character with a small elevated bladder neck or median lobe. Ureteral orifices in normal position with clear efflux the no other abnormalities within the bladder. At the end of the procedure the prostatic fossa was widely patent obstruction appeared to have been relieved and with the scope removed there was good flow with a full bladder. Patient received total laser energy of [id number] joules and a total laser time of 18 minutes 57 seconds. The patient had a 22 [place] 5 cc Barry catheter left in place through the urethra prostate and into the bladder with 14 cc of sterile water within the balloon. Closure Type: not applicable Specimen(s): none sent Applied: catheter (Twenty-two [place] Irish [address] Barry with 14 cc in the balloon) Estimated Blood Loss (mL): 10 Blood products transfused: none Procedure in detail: Procedure in detail: After informed consent was obtained, the patient was identified and brought to the operating room where he was placed in a supine position on the table once in the supine position the patient had anesthesia induced and maintained. Ensuring an adequate level of anesthesia the patient was transitioned to the lithotomy position where he was prepped, draped, prepared for Transurethral procedure. After prepping, draping and time-out ensuring an adequate level of anesthesia the laser resectoscope was passed through the urethra prostate and the bladder were cystoscopy was performed. The laser fiber was inserted and the level of the verumontanum was marked on the lateral lobes and floor the prostate as the distal extent of resection. The lateral lobes were then vaporized from the bladder neck to the verumontanum sequentially until the prostatic fossa was opened. Again a total of 173,[id number] joules was required to achieve this. With this done and hemostasis achieved the bladder was filled in the laser resectoscope was removed gentle pressure was placed on the abdomen and a vigorous stream was observed. The 22 [place] catheter was then passed through the urethra prostate and in the bladder with the balloon was filled with 14 cc of sterile water was placed to gravity drainage. At this time the patient was awakened having tolerated the procedure well to be transferred to the postanesthesia care unit for recovery. There were no complications patient will be discharged home with a Barry catheter to follow up in the morning for catheter removal and voiding trial. Complications: none Post-operative Condition: stable Disposition: PACU Plan for aftercare: Patient to be discharged home with his Barry catheter to follow up my office in the morning for voiding trial.
[2022-07-11] MEDS: OXYCODONE/ACETAMINOPHEN 5/325 TABLET 1 TAB PO (15:10)
[2022-07-11] MEDS: OXYBUTYNIN 5 MG TABLET PO (15:10)
[2022-07-11] MEDS: PHENAZOPYRIDINE 100 MG TABLET 200 MG PO (15:10)
--- NOTE | 2022-07-11 15:52 | SUR.PHASEII ---
patient states he is always cold. warm blankets applied. Barry instructions gone over with . mild burning from catheter. tolerating. will discharge soon. snack provided.
== END 2022-07-11 16:20 | disposition home or self-care (01) ==
PROVIDERS: Family Provider Family Medicine; PCP Family Medicine; Referring Provider Urology; Visit Provider Urology
PROC: (CPT 52648; principal; 2022-07-11 14:30)
DX: N32.0 Bladder-neck obstruction (principal); N40.0 Benign prostatic hyperplasia without lower urinary tract symptoms; Z87.898 Personal history of other specified conditions; Z77.098 Contact with and (suspected) exposure to other hazardous, chiefly nonmedicinal, chemicals
CPT/HCPCS: 52648; J0690; J1100; J2405; J2704; J3010

== ENCOUNTER → 2022-07-12 16:20 | Outpatient (CLI) | payer OTHER, SELFPAY ==
[2022-06-21 12:56] VITALS: BMI 30.1
== END ==
PROVIDERS: Family Provider Family Medicine; PCP Family Medicine; Visit Provider Urology
DX: N40.0 Benign prostatic hyperplasia without lower urinary tract symptoms (principal); R39.9 Unspecified symptoms and signs involving the genitourinary system; Z87.898 Personal history of other specified conditions
CPT/HCPCS: 51702; 51798; 87086

== ENCOUNTER → 2022-07-14 09:57 | Outpatient (CLI) | payer OTHER, SELFPAY ==
[2022-06-21 12:56] VITALS: BMI 30.1
== END ==
PROVIDERS: Family Provider Family Medicine; PCP Family Medicine; Visit Provider Urology
DX: R39.9 Unspecified symptoms and signs involving the genitourinary system (principal)
CPT/HCPCS: 51702; 51798; 87086

== ENCOUNTER → 2022-08-19 11:54 | Outpatient (CLI) | payer OTHER, SELFPAY ==
[2022-07-14 15:35] VITALS: BMI 30.1
== END ==
PROVIDERS: Family Provider Family Medicine; PCP Family Medicine; Visit Provider Urology
DX: N40.1 Benign prostatic hyperplasia with lower urinary tract symptoms (principal); N13.8 Other obstructive and reflux uropathy; R33.9 Retention of urine, unspecified; R39.9 Unspecified symptoms and signs involving the genitourinary system; Z87.898 Personal history of other specified conditions; Z77.098 Contact with and (suspected) exposure to other hazardous, chiefly nonmedicinal, chemicals; Z77.22 Contact with and (suspected) exposure to environmental tobacco smoke (acute) (chronic)
CPT/HCPCS: 51798; 87086

== ENCOUNTER 2022-10-05 14:15 | Outpatient (RCR) | payer OTHER, SELFPAY ==
[2022-07-14 15:35] VITALS: BMI 30.1
--- NOTE | 2022-08-02 18:46 | PT.OIE ---
Current Diagnoses Cervicalgia (08/02/22) Low back pain, unspecified (08/02/22) Difficulty in walking, not elsewhere classified (08/02/22) Abnormal posture (08/02/22) Weakness (08/02/22) Past Medical History (Last Reviewed 07/07/22 @ 10:06 by Jerome Vickers MD) Agent orange exposure (~1966) Anxiety Benign prostatic hyperplasia (~1999) Cataracts, bilateral (~1994) Chronic back pain Chronic headache (~2004) Colon polyps (~1989) Coronary artery disease Cyanosis of skin Depression Foot pain Fracture Glaucoma Hearing loss Hemorrhoid (~1974) History of depression History of high cholesterol History of urinary incontinence (~2004) Hx of neurological disease Hyperlipidemia Injury of cervical spine (~1960) Low back pain Lower urinary tract symptoms Macular degeneration (~1999) Measles Mumps Muscle twitch (~1966) Precancerous skin lesion PTSD (post-traumatic stress disorder) (~1966) Recurrent sinusitis (~1969) Rosacea (~1994) Secondhand smoke exposure Sleep apnea (~2009) Sternum pain Tinnitus (~1974) Tuberculosis (~1965) Wheezing Past Surgical History (Last Reviewed 07/07/22 @ 10:06 by Jerome Vickers MD) Anesthesia History of colonoscopy History of heart bypass surgery (2001) History of tonsillectomy (~1945) Hx of bilateral cataract extraction Hx of circumcision Hx of cystoscopy Visit Care Team Role Provider Type Edgar Zayas DO Attending Provider Physician Family Provider Primary Care Provider Referring Provider Specialty: [facility] Practice Address: [address] [place] [address], [facility] Email: [email or web address] Physical Therapy Initial Evaluation PT-OP-A Visit Information Start: 07/28/22 17:09 Freq: Status: Active Protocol: Document 08/02/22 13:33 [facility] (Rec: 08/02/22 14:19 [facility] [id number]) Out-Patient Physical Therapy Visit Information Visit Information Visit Type Initial Evaluation Visit Note 02/15 Visit Start Time 13:35 Visit Number 1 Number of CLOSING SPECIALIST Visits 0 PT-OP-B Current Condition Start: 07/28/22 17:09 Freq: Status: Active Protocol: Document 08/02/22 13:33 [facility] (Rec: 08/02/22 14:19 [facility] [id number]) Current Condition History of Current Condition Onset Date chronic Current Complaints LBP; recent foot pain History of Current Condition 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 He has also had a sled accident 60 years ago where he hurt his neck and that has been off and on since then. Pt reprots in the last 6 months, he has numbness in his feet and he wakes up in the AM w/very painful toes. It is getting worse and there are times he wakes up and it feels . it takes a little while for that to settle down. When he first wakes up, he has darker feet. hx of CABG in 2001. Bottom of R foot numbness doesn't go away. Pt reports prostate sugery about 3 weeks ago. Pt reports the last 6 months or so, his legs get tired easier. Denies any calf pain but does have cramps occ. notices neck is a lot stiffer that past year or 2. Pt reports when he lays on his R side, he gets pain all the way across abdomen. Pt has twitching throughout his body. Had a complete cardiology work up and no address of this issue was done. Pt and his are trying to get at least 1/4 mile in. By the time, he gets to the mailbox, he can't go further d/t his back pain. He used to walk miles a day a few years ago. He has a back brace and that helps. 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 [place]. USes a chair Prior Treatments and Tests MRI IMPRESSION: Multilevel, relatively mild given patient age, lumbar spondylosis causing foraminal stenosis as above. No significant central canal stenosis. abdomen MRI: IMPRESSION: Normal for age, source of left lower quadrant pain not identified. No sign of diverticulitis, colitis, or underlying infection or neoplasm. Treatment Goals Patient/Caregiver Goals Return to being able to walk, be able to get socks on himself PT-OP-C Subjective Start: 07/28/22 17:09 Freq: Status: Active Protocol: Document 08/02/22 13:33 [facility] (Rec: 08/02/22 14:19 [facility] [id number]) Patient Questionnaires Oswestry Low Back Index Oswestry Score 21/50 OP-PT Pain Assessment Location LB Pain Location Details L lumbar Description With Movement Frequency Intermittent Radiating Location R>L dorsum foot numb, all toes painful B Variations/Patterns occ B hip discomfort Pain Aggravating Factors Standing,Walking,Bending, Lifting Other Pain Aggravating Factors donning socks Pain Alleviating Factors Sitting Other Pain Alleviating Factors laying down PT-OP-D Balance Start: 07/28/22 17:09 Freq: Status: Active Protocol: Document 08/02/22 13:33 [facility] (Rec: 08/02/22 14:19 [facility] [id number]) Balance Tests Single Limb Standing Single Limb- Right >30 sec Single Limb- Left 17 sec PT-OP-F Manual Assessment Start: 07/28/22 17:09 Freq: Status: Active Protocol: Document 08/02/22 13:33 [facility] (Rec: 08/02/22 14:19 [facility] [id number]) Manual Assessments Joint Mobility Assessment Joint Mobility Assessment equal greater trochanter; L iliac crest higher PT-OP-G Mobility & Gait Start: 07/28/22 17:09 Freq: Status: Active Protocol: Document 08/02/22 13:33 [facility] (Rec: 08/02/22 14:19 [facility] [id number]) OP Gait Assessment Comments Gait Comments heaving drop onto LLE ; dec pelvis and UE motion PT-OP-J Posture/Palpation/Skin Start: 07/28/22 17:09 Freq: Status: Active Protocol: Document 08/02/22 13:33 [facility] (Rec: 08/02/22 14:19 [facility] [id number]) Posture Evaluation [facility] Postural Classification System [facility] Postural Classifications Posterior/Anterior Lumbar Protective Mechanism Left AP 1 Lumbar Protective Mechanism Right AP 1 Lumbar Protective Mechanism Left PA 2 Lumbar Protective Mechanism Right PA 1 Comments Posture Comments L SB cervical, R pelvic shear, RLE turned out, kyhposis, lack of lordosis PT-OP-K Range of Motion Start: 07/28/22 17:09 Freq: Status: Active Protocol: Document 08/02/22 13:33 [facility] (Rec: 08/02/22 14:19 [facility] [id number]) Lumbar Spine Range of Motion Lumbar Spine Active Percentage Flexion 10 Extension 20 Rotation Left 25 Rotation Right 25 Lateral Flexion Left 25 Lateral Flexion Right 50 Comments pain flex and ext; pain L B SB PT-OP-L Special Tests Start: 07/28/22 17:09 Freq: Status: Active Protocol: Document 08/02/22 13:33 [facility] (Rec: 08/02/22 14:19 [facility] [id number]) Special Tests Lumbar Spine Special Tests Slump Test Results dural tension B at end range knee ext PT-OP-M Strength Start: 07/28/22 17:09 Freq: Status: Active Protocol: Document 08/02/22 13:33 [facility] (Rec: 08/02/22 14:19 [facility] [id number]) Hip Strength Hip Manual Muscle Testing Right Flexion (L2) 4+ Good+ External Rotation 4 Good Internal Rotation 3+ Fair+ Left Flexion (L2) 4+ Good+ External Rotation 4 Good Internal Rotation 3+ Fair+ Knee Strength Knee Manual Muscle Testing Right Flexion (S2) 4- Good- Extension (L3) 5 Normal Left Flexion (S2) 4- Good- Extension (L3) 5 Normal Ankle/Foot Strength Ankle and Foot Manual Muscle Testing Right Dorsiflexion (L4) 4 Good Plantarflexion (S1) 5 Normal Inversion 4 Good Eversion (S1) 4 Good Comments PF tested seated B Left Dorsiflexion (L4) 4 Good Plantarflexion (S1) 5 Normal Inversion 3+ Fair+ Eversion (S1) 3+ Fair+ PT-OP-T Assessment and Plan Start: 07/28/22 17:09 Freq: Status: Active Protocol: Document 08/02/22 13:33 [facility] (Rec: 08/02/22 14:19 [facility] [id number]) Physical Therapy Assessment Rehab Potential Rehabilitation Potential Good Evaluation Complexity Number of Personal Factors/Comorbidities 3 or More Number of Body Systems Impaired 4 or More Clinical Presentation at Evaluation Evolving Impairments Impairments Activity Tolerance,Balance, Functional Activities, Functional Mobility,Gait,Pain, Posture,ROM,Soft Tissue Mobility,Strength Goals activities Short Term Goal (STG) Pt will be able to don socks indep w/o inc pain STG Duration 09/17/22 Nursing Home Goal (LTG) Pt will be able to start returning to walks of at least .75 mile w/o inc pain in back greater tahn 3/10 LTG Duration 10/25/22 strength Short Term Goal (STG) Pt will be indep w/HEP STG Duration 09/05/22 Nursing Home Goal (LTG) Pt will score at least 4+/5 on all LE MMT and at least 3/5 for LPM to show improved stabiltiy and strength LTG Duration 10/25/22 KIRILL Impairment 21/50 Short Term Goal (STG) Pt will will improve KIRILL score to no higher than 15/50 to show improved functional ability. STG Duration 09/05/22 Software Development Specialist Goal (LTG) Pt will will improve KIRILL score to no higher than 8/50 to show improved functional ability. LTG Duration 10/25/22 Assessment Summary Assessment Pt presents w/chronic LBP over 60 years w/recent onset of foot pain and numbness that is the worst when he wakes up.he also notes color changes of his feet (being darker) in the AM. He is working w/primary to figure this out and will be scheduled for nerve conduction study. He has talked to his post anesthesia room nurse, neurosurgeon and primary about this. He has history of neck injury 60 years ago also w/ cont SB of neck in standing. He is currently limited in how far he can walk and even walking to the mailbox is taxing to him d/t his back pain. He notes he typically can't get his socks oon himself and his tends to help. He reports L abdomenal pain, which his doctors have done mult images for w/o any findings. He notes it most w/ laying on R side. He would benefit from skilled PT to work on postural alignment, core stability, LE strength/ stability, mobility of hips and lumbar, cerivical and thoracic spine and improve gait mechanics and balance to improve pt functional abiltiy and pain. Pt's neck injury and pain is likely contributing to his LB. Physical Therapy Plan Frequency and Duration Frequency of Treatment 2x/Week Duration of treatment (weeks) 12 Plan of Care Start Date 08/02/22 Plan of Care End Date 10/25/22 Therapeutic Interventions Therapeutic Interventions Balance Training,Gait Training ,Home Exercise Program,Joint Mobilizations,Manual Therapy, Neuromuscular Re-education, Orthotic/Prosthetic Management ,Patient/Caregiver Education, Self-Care/Home Management,Soft Tissue Mobilization,Taping, Therapeutic Activities, Therapeutic Exercises Modalities Cold Pack/Ice Massage,Hot Packs,Ultrasound Next Visit Focus/Plan Next Note Type Treatment Note Next Visit Plan supine core exercises: pelvic tilt, LTR, april; stretches: piriformis, active HS; manual to hips and LB -progress to sacral and innominate mobility
--- NOTE | 2022-08-02 18:47 | PT.OPPOC ---
Physical, Occupational & Speech Therapy At [facility] Current Diagnoses Cervicalgia (08/02/22) Low back pain, unspecified (08/02/22) Difficulty in walking, not elsewhere classified (08/02/22) Abnormal posture (08/02/22) Weakness (08/02/22) Visit Care Team Role Provider Type Edgar Zayas DO Attending Provider Physician Family Provider Primary Care Provider Referring Provider Specialty: Family Practice Address: [address] [place] [address], [facility] Email: [email or web address] Plan Of Care PT-OP-T Assessment and Plan Start: 07/28/22 17:09 Freq: Status: Active Protocol: Document 08/02/22 13:33 [facility] (Rec: 08/02/22 14:19 [facility] [id number]) Physical Therapy Assessment Rehab Potential Rehabilitation Potential Good Evaluation Complexity Number of Personal Factors/Comorbidities 3 or More Number of Body Systems Impaired 4 or More Clinical Presentation at Evaluation Evolving Impairments Impairments Activity Tolerance,Balance, Functional Activities, Functional Mobility,Gait,Pain, Posture,ROM,Soft Tissue Mobility,Strength Goals activities Short Term Goal (STG) Pt will be able to don socks indep w/o inc pain STG Duration 09/17/22 Correction Goal (LTG) Pt will be able to start returning to walks of at least .75 mile w/o inc pain in back greater tahn 3/10 LTG Duration 10/25/22 strength Short Term Goal (STG) Pt will be indep w/HEP STG Duration 09/05/22 Splicer Apprentice Goal (LTG) Pt will score at least 4+/5 on all LE MMT and at least 3/5 for LPM to show improved stabiltiy and strength LTG Duration 10/25/22 KIRILL Impairment 21/50 Short Term Goal (STG) Pt will will improve KIRILL score to no higher than 15/50 to show improved functional ability. STG Duration 09/05/22 Correction Goal (LTG) Pt will will improve KIRILL score to no higher than 8/50 to show improved functional ability. LTG Duration 10/25/22 Assessment Summary Assessment Pt presents w/chronic LBP over 60 years w/recent onset of foot pain and numbness that is the worst when he wakes up.he also notes color changes of his feet (being darker) in the AM. He is working w/primary to figure this out and will be scheduled for nerve conduction study. He has talked to his breeder hen service technician, neurosurgeon and primary about this. He has history of neck injury 60 years ago also w/ cont SB of neck in standing. He is currently limited in how far he can walk and even walking to the mailbox is taxing to him d/t his back pain. He notes he typically can't get his socks oon himself and his tends to help. He reports L abdomenal pain, which his doctors have done mult images for w/o any findings. He notes it most w/ laying on R side. He would benefit from skilled PT to work on postural alignment, core stability, LE strength/ stability, mobility of hips and lumbar, cerivical and thoracic spine and improve gait mechanics and balance to improve pt functional abiltiy and pain. Pt's neck injury and pain is likely contributing to his LB. Physical Therapy Plan Frequency and Duration Frequency of Treatment 2x/Week Duration of treatment (weeks) 12 Plan of Care Start Date 08/02/22 Plan of Care End Date 10/25/22 Therapeutic Interventions Therapeutic Interventions Balance Training,Gait Training ,Home Exercise Program,Joint Mobilizations,Manual Therapy, Neuromuscular Re-education, Orthotic/Prosthetic Management ,Patient/Caregiver Education, Self-Care/Home Management,Soft Tissue Mobilization,Taping, Therapeutic Activities, Therapeutic Exercises Modalities Cold Pack/Ice Massage,Hot Packs,Ultrasound Next Visit Focus/Plan Next Note Type Treatment Note Next Visit Plan supine core exercises: pelvic tilt, LTR, april; stretches: piriformis, active HS; manual to hips and LB -progress to sacral and innominate mobility Plan of Care Dates Plan of Care Start Date 08/02/22 Plan of Care End Date 10/25/22 Electronically Signed by: Claudia Hanna, PT 08/02/22 1352 If you are in agreement with this Plan of Care, please return a signed and dated copy. I have reviewed this Plan of Care and certify that the skilled therapy services above are required to meet the patient?s needs. Physician Signature Date Printed Name and Credentials Clinical Instructor Signature Printed Name and Credentials
--- NOTE | 2022-08-04 15:12 | PT.OTN ---
Current Diagnoses Cervicalgia (08/04/22) Low back pain, unspecified (08/04/22) Difficulty in walking, not elsewhere classified (08/04/22) Abnormal posture (08/04/22) Weakness (08/04/22) Physical Therapy Treatment Note PT-OP-A Visit Information Start: 07/28/22 17:09 Freq: Status: Active Protocol: Document 08/04/22 13:37 [facility] (Rec: 08/04/22 15:12 [facility] [id number]) Out-Patient Physical Therapy Visit Information Visit Information Visit Type Treatment Note Visit Note 03/18 Visit Start Time 13:36 Visit Stop Time 14:15 Total Visit Minutes 39 Visit Number 2 Number of BRUSH FINISHER Visits 0 PT-OP-B Current Condition Start: 07/28/22 17:09 Freq: Status: Active Protocol: Document 08/02/22 13:33 [facility] (Rec: 08/02/22 14:19 [facility] [id number]) Current Condition History of Current Condition Onset Date chronic Current Complaints LBP; recent foot pain History of Current Condition 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 He has also had a sled accident 60 years ago where he hurt his neck and that has been off and on since then. Pt reprots in the last 6 months, he has numbness in his feet and he wakes up in the AM w/very painful toes. It is getting worse and there are times he wakes up and it feels . it takes a little while for that to settle down. When he first wakes up, he has darker feet. hx of CABG in 2001. Bottom of R foot numbness doesn't go away. Pt reports prostate sugery about 3 weeks ago. Pt reports the last 6 months or so, his legs get tired easier. Denies any calf pain but does have cramps occ. notices neck is a lot stiffer that past year or 2. Pt reports when he lays on his R side, he gets pain all the way across abdomen. Pt has twitching throughout his body. Had a complete cardiology work up and no address of this issue was done. Pt and his are trying to get at least 1/4 mile in. By the time, he gets to the mailbox, he can't go further d/t his back pain. He used to walk miles a day a few years ago. He has a back brace and that helps. 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 [place]. USes a chair Prior Treatments and Tests MRI IMPRESSION: Multilevel, relatively mild given patient age, lumbar spondylosis causing foraminal stenosis as above. No significant central canal stenosis. abdomen MRI: IMPRESSION: Normal for age, source of left lower quadrant pain not identified. No sign of diverticulitis, colitis, or underlying infection or neoplasm. Treatment Goals Patient/Caregiver Goals Return to being able to walk, be able to get socks on himself PT-OP-C Subjective Start: 07/28/22 17:09 Freq: Status: Active Protocol: Document 08/04/22 13:37 [facility] (Rec: 08/04/22 15:12 [facility] [id number]) OP-PT Subjective Patient Comments Patient Comments Pt reports he had prostate surgery recently and doing kegals. He has no restrictions PT-OP-D Balance Start: 07/28/22 17:09 Freq: Status: Active Protocol: Document 08/02/22 13:33 [facility] (Rec: 08/02/22 14:19 [facility] [id number]) Balance Tests Single Limb Standing Single Limb- Right >30 sec Single Limb- Left 17 sec PT-OP-F Manual Assessment Start: 07/28/22 17:09 Freq: Status: Active Protocol: Document 08/02/22 13:33 [facility] (Rec: 08/02/22 14:19 [facility] [id number]) Manual Assessments Joint Mobility Assessment Joint Mobility Assessment equal greater trochanter; L iliac crest higher PT-OP-G Mobility & Gait Start: 07/28/22 17:09 Freq: Status: Active Protocol: Document 08/02/22 13:33 [facility] (Rec: 08/02/22 14:19 [facility] [id number]) OP Gait Assessment Comments Gait Comments heaving drop onto LLE ; dec pelvis and UE motion PT-OP-J Posture/Palpation/Skin Start: 07/28/22 17:09 Freq: Status: Active Protocol: Document 08/02/22 13:33 [facility] (Rec: 08/02/22 14:19 [facility] [id number]) Posture Evaluation [place] Postural Classification System [place] Postural Classifications Posterior/Anterior Lumbar Protective Mechanism Left AP 1 Lumbar Protective Mechanism Right AP 1 Lumbar Protective Mechanism Left PA 2 Lumbar Protective Mechanism Right PA 1 Comments Posture Comments L SB cervical, R pelvic shear, RLE turned out, kyhposis, lack of lordosis PT-OP-K Range of Motion Start: 07/28/22 17:09 Freq: Status: Active Protocol: Document 08/02/22 13:33 [facility] (Rec: 08/02/22 14:19 [facility] [id number]) Lumbar Spine Range of Motion Lumbar Spine Active Percentage Flexion 10 Extension 20 Rotation Left 25 Rotation Right 25 Lateral Flexion Left 25 Lateral Flexion Right 50 Comments pain flex and ext; pain L B SB PT-OP-L Special Tests Start: 07/28/22 17:09 Freq: Status: Active Protocol: Document 08/02/22 13:33 [facility] (Rec: 08/02/22 14:19 [facility] [id number]) Special Tests Lumbar Spine Special Tests Slump Test Results dural tension B at end range knee ext PT-OP-M Strength Start: 07/28/22 17:09 Freq: Status: Active Protocol: Document 08/02/22 13:33 [facility] (Rec: 08/02/22 14:19 [facility] [id number]) Hip Strength Hip Manual Muscle Testing Right Flexion (L2) 4+ Good+ External Rotation 4 Good Internal Rotation 3+ Fair+ Left Flexion (L2) 4+ Good+ External Rotation 4 Good Internal Rotation 3+ Fair+ Knee Strength Knee Manual Muscle Testing Right Flexion (S2) 4- Good- Extension (L3) 5 Normal Left Flexion (S2) 4- Good- Extension (L3) 5 Normal Ankle/Foot Strength Ankle and Foot Manual Muscle Testing Right Dorsiflexion (L4) 4 Good Plantarflexion (S1) 5 Normal Inversion 4 Good Eversion (S1) 4 Good Comments PF tested seated B Left Dorsiflexion (L4) 4 Good Plantarflexion (S1) 5 Normal Inversion 3+ Fair+ Eversion (S1) 3+ Fair+ PT-OP-Q Treatments Start: 07/28/22 17:09 Freq: Status: Active Protocol: Document 08/04/22 13:37 [facility] (Rec: 08/04/22 15:12 [facility] [id number]) Therapeutic Exercises Supine Exercises HS Supine Exercise Name active HS stretch Side bilateral Reps/Minutes 5 sec x10 stretch Supine Exercise Name SKTC Side bilateral Reps/Minutes 30 sec ea bridge Side bilateral Reps/Minutes 15 Comments traction facilitation used to get dec back pain TAbd Supine Exercise Name 1. engagement 2. marches Side bilateral Reps/Minutes 10 ea pelvic tilt Reps/Minutes 5 Comments stopped doming Manual Therapy Treatment Soft Tissue Mobilization lumbar Mobilization Type Myofascial Release,Rolling Comments superficial fascia and moderate along bony contors PT-OP-T Assessment and Plan Start: 07/28/22 17:09 Freq: Status: Active Protocol: Document 08/04/22 13:37 [facility] (Rec: 08/04/22 15:12 [facility] [id number]) Physical Therapy Assessment Goals activities Short Term Goal (STG) Pt will be able to don socks indep w/o inc pain STG Duration 09/17/22 Retail Account Manager Goal (LTG) Pt will be able to start returning to walks of at least .75 mile w/o inc pain in back greater tahn 3/10 LTG Duration 10/25/22 strength Short Term Goal (STG) Pt will be indep w/HEP STG Duration 09/05/22 Longterm Goal (LTG) Pt will score at least 4+/5 on all LE MMT and at least 3/5 for LPM to show improved stabiltiy and strength LTG Duration 10/25/22 KIRILL Impairment 21/50 Short Term Goal (STG) Pt will will improve KIRILL score to no higher than 15/50 to show improved functional ability. STG Duration 09/05/22 Longterm Goal (LTG) Pt will will improve KIRILL score to no higher than 8/50 to show improved functional ability. LTG Duration 10/25/22 Assessment Summary Assessment Pt has significant diastisis whcih will likely affect his back and make it more difficult to engage his core. he did well with all exercises in re: to this except pelvic tilts,so did not continue these. He reports feeling relaxation of his back w/STM Physical Therapy Plan Frequency and Duration Frequency of Treatment 2x/Week Duration of treatment (weeks) 12 Plan of Care Start Date 08/02/22 Plan of Care End Date 10/25/22 Next Visit Focus/Plan Next Note Type Treatment Note Next Visit Plan review exercises, manaul to hips and LB & progress sacral and innominate mobility; be aware-pt appears to have about 2.5 finger diastisis
--- NOTE | 2022-08-08 12:21 | PT.OTN ---
Current Diagnoses Cervicalgia (08/08/22) Low back pain, unspecified (08/08/22) Difficulty in walking, not elsewhere classified (08/08/22) Abnormal posture (08/08/22) Weakness (08/08/22) Physical Therapy Treatment Note PT-OP-A Visit Information Start: 07/28/22 17:09 Freq: Status: Active Protocol: Document 08/08/22 11:39 [facility] (Rec: 08/08/22 12:21 [facility] [id number]) Out-Patient Physical Therapy Visit Information Visit Information Visit Type Treatment Note Visit Note 04/15 Visit Start Time 11:38 Visit Stop Time 12:16 Total Visit Minutes 38 Visit Number 3 Number of CAKE CUTTER MACHINE Visits 0 PT-OP-B Current Condition Start: 07/28/22 17:09 Freq: Status: Active Protocol: Document 08/02/22 13:33 [facility] (Rec: 08/02/22 14:19 [facility] [id number]) Current Condition History of Current Condition Onset Date chronic Current Complaints LBP; recent foot pain History of Current Condition 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 He has also had a sled accident 60 years ago where he hurt his neck and that has been off and on since then. Pt reprots in the last 6 months, he has numbness in his feet and he wakes up in the AM w/very painful toes. It is getting worse and there are times he wakes up and it feels . it takes a little while for that to settle down. When he first wakes up, he has darker feet. hx of CABG in 2001. Bottom of R foot numbness doesn't go away. Pt reports prostate sugery about 3 weeks ago. Pt reports the last 6 months or so, his legs get tired easier. Denies any calf pain but does have cramps occ. notices neck is a lot stiffer that past year or 2. Pt reports when he lays on his R side, he gets pain all the way across abdomen. Pt has twitching throughout his body. Had a complete cardiology work up and no address of this issue was done. Pt and his are trying to get at least 1/4 mile in. By the time, he gets to the mailbox, he can't go further d/t his back pain. He used to walk miles a day a few years ago. He has a back brace and that helps. 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 [place]ishes [place] beach for salmon. USes a chair Prior Treatments and Tests MRI IMPRESSION: Multilevel, relatively mild given patient age, lumbar spondylosis causing foraminal stenosis as above. No significant central canal stenosis. abdomen MRI: IMPRESSION: Normal for age, source of left lower quadrant pain not identified. No sign of diverticulitis, colitis, or underlying infection or neoplasm. Treatment Goals Patient/Caregiver Goals Return to being able to walk, be able to get socks on himself PT-OP-C Subjective Start: 07/28/22 17:09 Freq: Status: Active Protocol: Document 08/08/22 11:39 [facility] (Rec: 08/08/22 12:21 [facility] [id number]) OP-PT Subjective Patient Comments Patient Comments Pt reports exercises have gone well except bridge give cramping but if he does them later in the day and takes his BCCA, its okay. PT-OP-D Balance Start: 07/28/22 17:09 Freq: Status: Active Protocol: Document 08/02/22 13:33 [facility] (Rec: 08/02/22 14:19 [facility] [id number]) Balance Tests Single Limb Standing Single Limb- Right >30 sec Single Limb- Left 17 sec PT-OP-F Manual Assessment Start: 07/28/22 17:09 Freq: Status: Active Protocol: Document 08/02/22 13:33 [facility] (Rec: 08/02/22 14:19 [facility] [id number]) Manual Assessments Joint Mobility Assessment Joint Mobility Assessment equal greater trochanter; L iliac crest higher PT-OP-G Mobility & Gait Start: 07/28/22 17:09 Freq: Status: Active Protocol: Document 08/02/22 13:33 [facility] (Rec: 08/02/22 14:19 [facility] [id number]) OP Gait Assessment Comments Gait Comments heaving drop onto LLE ; dec pelvis and UE motion PT-OP-J Posture/Palpation/Skin Start: 07/28/22 17:09 Freq: Status: Active Protocol: Document 08/02/22 13:33 [facility] (Rec: 08/02/22 14:19 [facility] [id number]) Posture Evaluation Onelia Postural Classification System Onelia Postural Classifications Posterior/Anterior Lumbar Protective Mechanism Left AP 1 Lumbar Protective Mechanism Right AP 1 Lumbar Protective Mechanism Left PA 2 Lumbar Protective Mechanism Right PA 1 Comments Posture Comments L SB cervical, R pelvic shear, RLE turned out, kyhposis, lack of lordosis PT-OP-K Range of Motion Start: 07/28/22 17:09 Freq: Status: Active Protocol: Document 08/02/22 13:33 [facility] (Rec: 08/02/22 14:19 [facility] [id number]) Lumbar Spine Range of Motion Lumbar Spine Active Percentage Flexion 10 Extension 20 Rotation Left 25 Rotation Right 25 Lateral Flexion Left 25 Lateral Flexion Right 50 Comments pain flex and ext; pain L B SB PT-OP-L Special Tests Start: 07/28/22 17:09 Freq: Status: Active Protocol: Document 08/02/22 13:33 [facility] (Rec: 08/02/22 14:19 [facility] [id number]) Special Tests Lumbar Spine Special Tests Slump Test Results dural tension B at end range knee ext PT-OP-M Strength Start: 07/28/22 17:09 Freq: Status: Active Protocol: Document 08/02/22 13:33 [facility] (Rec: 08/02/22 14:19 [facility] [id number]) Hip Strength Hip Manual Muscle Testing Right Flexion (L2) 4+ Good+ External Rotation 4 Good Internal Rotation 3+ Fair+ Left Flexion (L2) 4+ Good+ External Rotation 4 Good Internal Rotation 3+ Fair+ Knee Strength Knee Manual Muscle Testing Right Flexion (S2) 4- Good- Extension (L3) 5 Normal Left Flexion (S2) 4- Good- Extension (L3) 5 Normal Ankle/Foot Strength Ankle and Foot Manual Muscle Testing Right Dorsiflexion (L4) 4 Good Plantarflexion (S1) 5 Normal Inversion 4 Good Eversion (S1) 4 Good Comments PF tested seated B Left Dorsiflexion (L4) 4 Good Plantarflexion (S1) 5 Normal Inversion 3+ Fair+ Eversion (S1) 3+ Fair+ PT-OP-Q Treatments Start: 07/28/22 17:09 Freq: Status: Active Protocol: Document 08/08/22 11:39 [facility] (Rec: 08/08/22 12:21 [facility] [id number]) Therapeutic Exercises Supine Exercises HS Supine Exercise Name active HS stretch Side bilateral Reps/Minutes 5 sec x10 stretch Supine Exercise Name SKTC Side bilateral Reps/Minutes 30 sec ea bridge Side bilateral Reps/Minutes 15 Comments traction facilitation used to get dec back pain TAbd Supine Exercise Name marches Side bilateral Reps/Minutes 10 ea Manual Therapy Treatment Soft Tissue Mobilization lumbar Body Location QL & ES Mobilization Type Myofascial Release,Rolling Body Position Sidelying Comments w/post dep Joint Mobilizations lumbar Comments L s/l distraction L 4-5, L3-4, L2-3 FM PT-OP-T Assessment and Plan Start: 07/28/22 17:09 Freq: Status: Active Protocol: Document 08/08/22 11:39 [facility] (Rec: 08/08/22 12:21 [facility] [id number]) Physical Therapy Assessment Goals activities Short Term Goal (STG) Pt will be able to don socks indep w/o inc pain STG Duration 09/17/22 Halfway Goal (LTG) Pt will be able to start returning to walks of at least .75 mile w/o inc pain in back greater tahn 3/10 LTG Duration 10/25/22 strength Short Term Goal (STG) Pt will be indep w/HEP STG Duration 09/05/22 Environmental Engineer Scientist Goal (LTG) Pt will score at least 4+/5 on all LE MMT and at least 3/5 for LPM to show improved stabiltiy and strength LTG Duration 10/25/22 KIRILL Impairment 21/50 Short Term Goal (STG) Pt will will improve KIRILL score to no higher than 15/50 to show improved functional ability. STG Duration 09/05/22 Environmental Engineer Scientist Goal (LTG) Pt will will improve KIRILL score to no higher than 8/50 to show improved functional ability. LTG Duration 10/25/22 Assessment Summary Assessment Pt did well with exercsies w/ min cues. He did okay w/ bridges in clinic and did well with bracing w/min cues. He had a lot of mm tightness in lumbar spine but inc post dep w/manual. Physical Therapy Plan Frequency and Duration Frequency of Treatment 2x/Week Duration of treatment (weeks) 12 Plan of Care Start Date 08/02/22 Plan of Care End Date 10/25/22 Next Visit Focus/Plan Next Note Type Treatment Note Next Visit Plan review exercises and davnace core, manaul to hips and LB & progress sacral and innominate mobility; be aware-pt appears to have about 2.5 finger diastisis
--- NOTE | 2022-08-16 17:53 | PT.OTN ---
Current Diagnoses Cervicalgia (08/16/22) Low back pain, unspecified (08/16/22) Difficulty in walking, not elsewhere classified (08/16/22) Abnormal posture (08/16/22) Weakness (08/16/22) Physical Therapy Treatment Note PT-OP-A Visit Information Start: 07/28/22 17:09 Freq: Status: Active Protocol: Document 08/16/22 12:53 [facility] (Rec: 08/16/22 17:53 [facility] [id number]) Out-Patient Physical Therapy Visit Information Visit Information Visit Type Treatment Note Visit Note 05/16 Visit Start Time 13:32 Visit Stop Time 14:15 Total Visit Minutes 43 Visit Number 4 Number of HEALTH ADMINISTRATION TEACHER Visits 0 PT-OP-B Current Condition Start: 07/28/22 17:09 Freq: Status: Active Protocol: Document 08/02/22 13:33 [facility] (Rec: 08/02/22 14:19 [facility] [id number]) Current Condition History of Current Condition Onset Date chronic Current Complaints LBP; recent foot pain History of Current Condition 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 He has also had a sled accident 60 years ago where he hurt his neck and that has been off and on since then. Pt reprots in the last 6 months, he has numbness in his feet and he wakes up in the AM w/very painful toes. It is getting worse and there are times he wakes up and it feels . it takes a little while for that to settle down. When he first wakes up, he has darker feet. hx of CABG in 2001. Bottom of R foot numbness doesn't go away. Pt reports prostate sugery about 3 weeks ago. Pt reports the last 6 months or so, his legs get tired easier. Denies any calf pain but does have cramps occ. notices neck is a lot stiffer that past year or 2. Pt reports when he lays on his R side, he gets pain all the way across abdomen. Pt has twitching throughout his body. Had a complete cardiology work up and no address of this issue was done. Pt and his are trying to get at least 1/4 mile in. By the time, he gets to the mailbox, he can't go further d/t his back pain. He used to walk miles a day a few years ago. He has a back brace and that helps. 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 [place]ishes on beach for salmon. USes a chair Prior Treatments and Tests MRI IMPRESSION: Multilevel, relatively mild given patient age, lumbar spondylosis causing foraminal stenosis as above. No significant central canal stenosis. abdomen MRI: IMPRESSION: Normal for age, source of left lower quadrant pain not identified. No sign of diverticulitis, colitis, or underlying infection or neoplasm. Treatment Goals Patient/Caregiver Goals Return to being able to walk, be able to get socks on himself PT-OP-C Subjective Start: 07/28/22 17:09 Freq: Status: Active Protocol: Document 08/16/22 12:53 [facility] (Rec: 08/16/22 17:53 [facility] [id number]) OP-PT Subjective Patient Comments Patient Comments pt reports soon after last session, felt soreness into abdomen and back. He notes it started the next day. It started to get better yesterday but still sore. Patient Reported Progress Worse PT-OP-D Balance Start: 07/28/22 17:09 Freq: Status: Active Protocol: Document 08/02/22 13:33 [facility] (Rec: 08/02/22 14:19 [facility] [id number]) Balance Tests Single Limb Standing Single Limb- Right >30 sec Single Limb- Left 17 sec PT-OP-F Manual Assessment Start: 07/28/22 17:09 Freq: Status: Active Protocol: Document 08/02/22 13:33 [facility] (Rec: 08/02/22 14:19 [facility] [id number]) Manual Assessments Joint Mobility Assessment Joint Mobility Assessment equal greater trochanter; L iliac crest higher PT-OP-G Mobility & Gait Start: 07/28/22 17:09 Freq: Status: Active Protocol: Document 08/02/22 13:33 [facility] (Rec: 08/02/22 14:19 [facility] [id number]) OP Gait Assessment Comments Gait Comments heaving drop onto LLE ; dec pelvis and UE motion PT-OP-J Posture/Palpation/Skin Start: 07/28/22 17:09 Freq: Status: Active Protocol: Document 08/02/22 13:33 [facility] (Rec: 08/02/22 14:19 [facility] [id number]) Posture Evaluation Onelia Postural Classification System Onelia Postural Classifications Posterior/Anterior Lumbar Protective Mechanism Left AP 1 Lumbar Protective Mechanism Right AP 1 Lumbar Protective Mechanism Left PA 2 Lumbar Protective Mechanism Right PA 1 Comments Posture Comments L SB cervical, R pelvic shear, RLE turned out, kyhposis, lack of lordosis PT-OP-K Range of Motion Start: 07/28/22 17:09 Freq: Status: Active Protocol: Document 08/02/22 13:33 [facility] (Rec: 08/02/22 14:19 [facility] [id number]) Lumbar Spine Range of Motion Lumbar Spine Active Percentage Flexion 10 Extension 20 Rotation Left 25 Rotation Right 25 Lateral Flexion Left 25 Lateral Flexion Right 50 Comments pain flex and ext; pain L B SB PT-OP-L Special Tests Start: 07/28/22 17:09 Freq: Status: Active Protocol: Document 08/02/22 13:33 [facility] (Rec: 08/02/22 14:19 [facility] [id number]) Special Tests Lumbar Spine Special Tests Slump Test Results dural tension B at end range knee ext PT-OP-M Strength Start: 07/28/22 17:09 Freq: Status: Active Protocol: Document 08/02/22 13:33 [facility] (Rec: 08/02/22 14:19 [facility] [id number]) Hip Strength Hip Manual Muscle Testing Right Flexion (L2) 4+ Good+ External Rotation 4 Good Internal Rotation 3+ Fair+ Left Flexion (L2) 4+ Good+ External Rotation 4 Good Internal Rotation 3+ Fair+ Knee Strength Knee Manual Muscle Testing Right Flexion (S2) 4- Good- Extension (L3) 5 Normal Left Flexion (S2) 4- Good- Extension (L3) 5 Normal Ankle/Foot Strength Ankle and Foot Manual Muscle Testing Right Dorsiflexion (L4) 4 Good Plantarflexion (S1) 5 Normal Inversion 4 Good Eversion (S1) 4 Good Comments PF tested seated B Left Dorsiflexion (L4) 4 Good Plantarflexion (S1) 5 Normal Inversion 3+ Fair+ Eversion (S1) 3+ Fair+ PT-OP-Q Treatments Start: 07/28/22 17:09 Freq: Status: Active Protocol: Document 08/16/22 12:53 [facility] (Rec: 08/16/22 17:53 [facility] [id number]) Therapeutic Exercises Supine Exercises HS Supine Exercise Name active HS stretch Side bilateral Reps/Minutes 5 sec x10 stretch Supine Exercise Name SKTC Side bilateral Reps/Minutes 30 sec ea bridge Side bilateral Reps/Minutes 15 Comments traction facilitation used to get dec back pain TAbd Supine Exercise Name marches Side bilateral Reps/Minutes 10 ea pelvic tilt Reps/Minutes 5 Comments stopped doming Manual Therapy Treatment Soft Tissue Mobilization HS Body Location R proximal Mobilization Type Rolling Intensity/Depth Moderate Comments w/AAROM flex Joint Mobilizations hip Comments B ER hooklying free the ball FM & inf FM PT-OP-T Assessment and Plan Start: 07/28/22 17:09 Freq: Status: Active Protocol: Document 08/16/22 12:53 [facility] (Rec: 08/16/22 17:53 [facility] [id number]) Physical Therapy Assessment Goals activities Short Term Goal (STG) Pt will be able to don socks indep w/o inc pain STG Duration 09/17/22 Cylinder Honer Goal (LTG) Pt will be able to start returning to walks of at least .75 mile w/o inc pain in back greater tahn 3/10 LTG Duration 10/25/22 strength Short Term Goal (STG) Pt will be indep w/HEP STG Duration 09/05/22 Cylinder Honer Goal (LTG) Pt will score at least 4+/5 on all LE MMT and at least 3/5 for LPM to show improved stabiltiy and strength LTG Duration 10/25/22 KIRILL Impairment 21/50 Short Term Goal (STG) Pt will will improve KIRILL score to no higher than 15/50 to show improved functional ability. STG Duration 09/05/22 Cylinder Honer Goal (LTG) Pt will will improve KIRILL score to no higher than 8/50 to show improved functional ability. LTG Duration 10/25/22 Assessment Summary Assessment Heavy communication during exercsies to assess through pain. no pain noted except w/ bridges and pt instructed on smaller range and w/knees going more over toes after traction. Improved B hip rotation and flex after manual and pt reported feeling looser. Physical Therapy Plan Frequency and Duration Frequency of Treatment 2x/Week Duration of treatment (weeks) 12 Plan of Care Start Date 08/02/22 Plan of Care End Date 10/25/22 Next Visit Focus/Plan Next Note Type Treatment Note Next Visit Plan review exercises and advnace core, manaul to hips and LB & progress sacral and innominate mobility; be aware-pt appears to have about 2.5 finger diastisis
--- NOTE | 2022-08-25 17:53 | PT.OTN ---
Addendum entered and electronically signed by Claudia Hanna PT 08/25/22 18:11: PT direct supervision and direction to PT student. Original Note: Current Diagnoses Cervicalgia (08/25/22) Low back pain, unspecified (08/25/22) Difficulty in walking, not elsewhere classified (08/25/22) Abnormal posture (08/25/22) Weakness (08/25/22) Physical Therapy Treatment Note PT-OP-A Visit Information Start: 07/28/22 17:09 Freq: Status: Active Protocol: Document 08/25/22 16:56 (Rec: 08/25/22 17:14 [id number]) Out-Patient Physical Therapy Visit Information Visit Information Visit Type Treatment Note Visit Note 06/15 Visit Start Time 15:18 Visit Stop Time 16:03 Total Visit Minutes 45 Visit Number 5 Number of HELPER DRIVER Visits 0 PT-OP-B Current Condition Start: 07/28/22 17:09 Freq: Status: Active Protocol: Document 08/02/22 13:33 [facility] (Rec: 08/02/22 14:19 [facility] [id number]) Current Condition History of Current Condition Onset Date chronic Current Complaints LBP; recent foot pain History of Current Condition 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 He has also had a sled accident 60 years ago where he hurt his neck and that has been off and on since then. Pt reprots in the last 6 months, he has numbness in his feet and he wakes up in the AM w/very painful toes. It is getting worse and there are times he wakes up and it feels . it takes a little while for that to settle down. When he first wakes up, he has darker feet. hx of CABG in 2001. Bottom of R foot numbness doesn't go away. Pt reports prostate sugery about 3 weeks ago. Pt reports the last 6 months or so, his legs get tired easier. Denies any calf pain but does have cramps occ. notices neck is a lot stiffer that past year or 2. Pt reports when he lays on his R side, he gets pain all the way across abdomen. Pt has twitching throughout his body. Had a complete cardiology work up and no address of this issue was done. Pt and his are trying to get at least 1/4 mile in. By the time, he gets to the mailbox, he can't go further d/t his back pain. He used to walk miles a day a few years ago. He has a back brace and that helps. 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 [place]ishes on beach for salmon. USes a chair Prior Treatments and Tests MRI IMPRESSION: Multilevel, relatively mild given patient age, lumbar spondylosis causing foraminal stenosis as above. No significant central canal stenosis. abdomen MRI: IMPRESSION: Normal for age, source of left lower quadrant pain not identified. No sign of diverticulitis, colitis, or underlying infection or neoplasm. Treatment Goals Patient/Caregiver Goals Return to being able to walk, be able to get socks on himself PT-OP-C Subjective Start: 07/28/22 17:09 Freq: Status: Active Protocol: Document 08/25/22 16:56 (Rec: 08/25/22 17:14 [id number]) OP-PT Subjective Patient Comments Patient Comments pt reports that he felt fine after the previous visit. He went on a walk w/ his for about a mile in the [place]. He did do his bridges yesterday and after 4x his back hurt so he stopped do them. He still has some LB pain today. PT-OP-D Balance Start: 07/28/22 17:09 Freq: Status: Active Protocol: Document 08/02/22 13:33 [facility] (Rec: 08/02/22 14:19 [facility] [id number]) Balance Tests Single Limb Standing Single Limb- Right >30 sec Single Limb- Left 17 sec PT-OP-F Manual Assessment Start: 07/28/22 17:09 Freq: Status: Active Protocol: Document 08/02/22 13:33 [facility] (Rec: 08/02/22 14:19 [facility] [id number]) Manual Assessments Joint Mobility Assessment Joint Mobility Assessment equal greater trochanter; L iliac crest higher PT-OP-G Mobility & Gait Start: 07/28/22 17:09 Freq: Status: Active Protocol: Document 08/02/22 13:33 [facility] (Rec: 08/02/22 14:19 [facility] [id number]) OP Gait Assessment Comments Gait Comments heaving drop onto LLE ; dec pelvis and UE motion PT-OP-J Posture/Palpation/Skin Start: 07/28/22 17:09 Freq: Status: Active Protocol: Document 08/02/22 13:33 [facility] (Rec: 08/02/22 14:19 [facility] [id number]) Posture Evaluation [facility] Postural Classification System Onelia Postural Classifications Posterior/Anterior Lumbar Protective Mechanism Left AP 1 Lumbar Protective Mechanism Right AP 1 Lumbar Protective Mechanism Left PA 2 Lumbar Protective Mechanism Right PA 1 Comments Posture Comments L SB cervical, R pelvic shear, RLE turned out, kyhposis, lack of lordosis PT-OP-K Range of Motion Start: 07/28/22 17:09 Freq: Status: Active Protocol: Document 08/02/22 13:33 [facility] (Rec: 08/02/22 14:19 [facility] [id number]) Lumbar Spine Range of Motion Lumbar Spine Active Percentage Flexion 10 Extension 20 Rotation Left 25 Rotation Right 25 Lateral Flexion Left 25 Lateral Flexion Right 50 Comments pain flex and ext; pain L B SB PT-OP-L Special Tests Start: 07/28/22 17:09 Freq: Status: Active Protocol: Document 08/02/22 13:33 [facility] (Rec: 08/02/22 14:19 [facility] [id number]) Special Tests Lumbar Spine Special Tests Slump Test Results dural tension B at end range knee ext PT-OP-M Strength Start: 07/28/22 17:09 Freq: Status: Active Protocol: Document 08/02/22 13:33 [facility] (Rec: 08/02/22 14:19 [facility] [id number]) Hip Strength Hip Manual Muscle Testing Right Flexion (L2) 4+ Good+ External Rotation 4 Good Internal Rotation 3+ Fair+ Left Flexion (L2) 4+ Good+ External Rotation 4 Good Internal Rotation 3+ Fair+ Knee Strength Knee Manual Muscle Testing Right Flexion (S2) 4- Good- Extension (L3) 5 Normal Left Flexion (S2) 4- Good- Extension (L3) 5 Normal Ankle/Foot Strength Ankle and Foot Manual Muscle Testing Right Dorsiflexion (L4) 4 Good Plantarflexion (S1) 5 Normal Inversion 4 Good Eversion (S1) 4 Good Comments PF tested seated B Left Dorsiflexion (L4) 4 Good Plantarflexion (S1) 5 Normal Inversion 3+ Fair+ Eversion (S1) 3+ Fair+ PT-OP-Q Treatments Start: 07/28/22 17:09 Freq: Status: Active Protocol: Document 08/25/22 16:56 (Rec: 08/25/22 17:14 [id number]) Therapeutic Exercises Supine Exercises LTR Supine Exercise Name Supine trunk rotations Side bilateral Reps/Minutes 15x Comments let pain guide him, dont go ganesh discomfort Heel slides Supine Exercise Name cues for TA Side bilateral Equipment Used pillowcase so heel will slide Reps/Minutes 12x Comments cues to monitor back pain Clamshells Supine Exercise Name SL supine clamshells Side bilateral Resistance blue band Reps/Minutes 10x Comments cues for TA and moving slow Sidelying Exercises ABD Side bilateral Reps/Minutes 10x Comments cues to move slow so that back does not flare up Manual Therapy Treatment Soft Tissue Mobilization Thigh Body Location ADD and quads Mobilization Type Myofascial Release, Oscillations,Strumming, Sustained Pressure Body Position Supine Comments Pt was in supine w/ knees bent and one leg ER at a time to decrease low back pain. HS Body Location B proximal Mobilization Type Rolling Intensity/Depth Moderate Comments w/AAROM flex PT-OP-T Assessment and Plan Start: 07/28/22 17:09 Freq: Status: Active Protocol: Document 08/25/22 16:56 (Rec: 08/25/22 17:14 [id number]) Physical Therapy Assessment Goals activities Short Term Goal (STG) Pt will be able to don socks indep w/o inc pain STG Duration 09/17/22 Usp Goal (LTG) Pt will be able to start returning to walks of at least .75 mile w/o inc pain in back greater tahn 3/10 LTG Duration 10/25/22 strength Short Term Goal (STG) Pt will be indep w/HEP STG Duration 09/05/22 Printed Circuit Board Drafter Goal (LTG) Pt will score at least 4+/5 on all LE MMT and at least 3/5 for LPM to show improved stabiltiy and strength LTG Duration 10/25/22 KIRILL Impairment 21/50 Short Term Goal (STG) Pt will will improve KIRILL score to no higher than 15/50 to show improved functional ability. STG Duration 09/05/22 Printed Circuit Board Drafter Goal (LTG) Pt will will improve KIRILL score to no higher than 8/50 to show improved functional ability. LTG Duration 10/25/22 Assessment Summary Assessment Pt presented w/ low back today . anything that involved straight legs in supine was avoided because it bothered his low back. heavy communication was used to assess through pain. Slow and controlled movements were encouraged to avoid sensations of pain. Following manual he stated that he felt good. pt was educated that if bridges or any of the other exercises continue to bother him he should stop doing them. Physical Therapy Plan Frequency and Duration Frequency of Treatment 2x/Week Duration of treatment (weeks) 12 Plan of Care Start Date 08/02/22 Plan of Care End Date 10/25/22 Next Visit Focus/Plan Next Note Type Treatment Note Next Visit Plan ask how bridges went. review exercises and advnace core, manaul to hips and LB & progress sacral and innominate mobility; be aware-pt appears to have about 2.5 finger diastisis
--- NOTE | 2022-08-31 14:49 | PT-OP ANOTE ---
Pt called re: no show and notes he must have forgot it and did find it on his calender. Pt reminded of no show policy and very apologetic. Pt reminded of next scheduled appt.
--- NOTE | 2022-10-05 18:00 | PT.OTN ---
Current Diagnoses Cervicalgia (10/05/22) Low back pain, unspecified (10/05/22) Difficulty in walking, not elsewhere classified (10/05/22) Abnormal posture (10/05/22) Weakness (10/05/22) Physical Therapy Treatment Note PT-OP-A Visit Information Start: 07/28/22 17:09 Freq: Status: Active Protocol: Document 10/05/22 14:24 [facility] (Rec: 10/05/22 15:19 [facility] [id number]) Out-Patient Physical Therapy Visit Information Visit Information Visit Type Progress Note Visit Start Time 14:21 Visit Stop Time 15:01 Total Visit Minutes 40 Visit Number 6 Number of STATION SUPERVISOR Visits 0 PT-OP-B Current Condition Start: 07/28/22 17:09 Freq: Status: Active Protocol: Document 08/02/22 13:33 [facility] (Rec: 08/02/22 14:19 [facility] [id number]) Current Condition History of Current Condition Onset Date chronic Current Complaints LBP; recent foot pain History of Current Condition 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 He has also had a sled accident 60 years ago where he hurt his neck and that has been off and on since then. Pt reprots in the last 6 months, he has numbness in his feet and he wakes up in the AM w/very painful toes. It is getting worse and there are times he wakes up and it feels . it takes a little while for that to settle down. When he first wakes up, he has darker feet. hx of CABG in 2001. Bottom of R foot numbness doesn't go away. Pt reports prostate sugery about 3 weeks ago. Pt reports the last 6 months or so, his legs get tired easier. Denies any calf pain but does have cramps occ. notices neck is a lot stiffer that past year or 2. Pt reports when he lays on his R side, he gets pain all the way across abdomen. Pt has twitching throughout his body. Had a complete cardiology work up and no address of this issue was done. Pt and his are trying to get at least 1/4 mile in. By the time, he gets to the mailbox, he can't go further d/t his back pain. He used to walk miles a day a few years ago. He has a back brace and that helps. 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 [place]ishes [place] beach [place] salmon. USes a chair Prior Treatments and Tests MRI IMPRESSION: Multilevel, relatively mild given patient age, lumbar spondylosis causing foraminal stenosis as above. No significant central canal stenosis. abdomen MRI: IMPRESSION: Normal for age, source of left lower quadrant pain not identified. No sign of diverticulitis, colitis, or underlying infection or neoplasm. Treatment Goals Patient/Caregiver Goals Return to being able to walk, be able to get socks on himself PT-OP-C Subjective Start: 07/28/22 17:09 Freq: Status: Active Protocol: Document 10/05/22 14:24 [facility] (Rec: 10/05/22 15:19 [facility] [id number]) OP-PT Subjective Patient Comments Patient Comments Pt got tangled in drift wood 2 different times when fishing. Once 2 weeks ago and another 1 week ago. He was able to get up himself and [facility]. His back is sore from this. PT-OP-D Balance Start: 07/28/22 17:09 Freq: Status: Active Protocol: Document 08/02/22 13:33 [facility] (Rec: 08/02/22 14:19 [facility] [id number]) Balance Tests Single Limb Standing Single Limb- Right >30 sec Single Limb- Left 17 sec PT-OP-F Manual Assessment Start: 07/28/22 17:09 Freq: Status: Active Protocol: Document 08/02/22 13:33 [facility] (Rec: 08/02/22 14:19 [facility] [id number]) Manual Assessments Joint Mobility Assessment Joint Mobility Assessment equal greater trochanter; L iliac crest higher PT-OP-G Mobility & Gait Start: 07/28/22 17:09 Freq: Status: Active Protocol: Document 08/02/22 13:33 [facility] (Rec: 08/02/22 14:19 [facility] [id number]) OP Gait Assessment Comments Gait Comments heaving drop onto LLE ; dec pelvis and UE motion PT-OP-J Posture/Palpation/Skin Start: 07/28/22 17:09 Freq: Status: Active Protocol: Document 08/02/22 13:33 [facility] (Rec: 08/02/22 14:19 [facility] [id number]) Posture Evaluation On[facility] Postural Classification System Onelia Postural Classifications Posterior/Anterior Lumbar Protective Mechanism Left AP 1 Lumbar Protective Mechanism Right AP 1 Lumbar Protective Mechanism Left PA 2 Lumbar Protective Mechanism Right PA 1 Comments Posture Comments L SB cervical, R pelvic shear, RLE turned out, kyhposis, lack of lordosis PT-OP-K Range of Motion Start: 07/28/22 17:09 Freq: Status: Active Protocol: Document 08/02/22 13:33 [facility] (Rec: 08/02/22 14:19 [facility] [id number]) Lumbar Spine Range of Motion Lumbar Spine Active Percentage Flexion 10 Extension 20 Rotation Left 25 Rotation Right 25 Lateral Flexion Left 25 Lateral Flexion Right 50 Comments pain flex and ext; pain L B SB PT-OP-L Special Tests Start: 07/28/22 17:09 Freq: Status: Active Protocol: Document 08/02/22 13:33 [facility] (Rec: 08/02/22 14:19 [facility] [id number]) Special Tests Lumbar Spine Special Tests Slump Test Results dural tension B at end range knee ext PT-OP-M Strength Start: 07/28/22 17:09 Freq: Status: Active Protocol: Document 10/05/22 14:24 [facility] (Rec: 10/05/22 15:19 [facility] [id number]) Hip Strength Hip Manual Muscle Testing Right Flexion (L2) 4 Good External Rotation 4 Good Internal Rotation 4+ Good+ Left Flexion (L2) 4 Good External Rotation 5 Normal Internal Rotation 5 Normal Knee Strength Knee Manual Muscle Testing Right Flexion (S2) 4 Good Extension (L3) 5 Normal Left Flexion (S2) 5 Normal Extension (L3) 5 Normal Ankle/Foot Strength Ankle and Foot Manual Muscle Testing Right Dorsiflexion (L4) 4 Good Plantarflexion (S1) 5 Normal Inversion 5 Normal Eversion (S1) 5 Normal Comments PF tested seated B Left Dorsiflexion (L4) 4 Good Plantarflexion (S1) 5 Normal Inversion 5 Normal Eversion (S1) 5 Normal PT-OP-Q Treatments Start: 07/28/22 17:09 Freq: Status: Active Protocol: Document 10/05/22 14:24 [facility] (Rec: 10/05/22 15:19 [facility] [id number]) Therapeutic Exercises Supine Exercises LTR Supine Exercise Name Supine trunk rotations Side bilateral Reps/Minutes 8x Comments let pain guide him, dont go ganesh discomfort TAbd Supine Exercise Name marches to knee ext Side bilateral Reps/Minutes 10 ea Sidelying Exercises clamshell Side bilateral Equipment Used orange band Reps/Minutes 10 ABD Side bilateral Reps/Minutes 10x Comments cues to not be leaned back Manual Therapy Treatment Soft Tissue Mobilization lumbar Body Location QL & ES Mobilization Type Myofascial Release,Rolling Body Position Sidelying Comments w/post dep Joint Mobilizations innominate Joint R add FM Reps/Duration s/l PT-OP-T Assessment and Plan Start: 07/28/22 17:09 Freq: Status: Active Protocol: Document 10/05/22 14:24 [facility] (Rec: 10/05/22 15:19 [facility] [id number]) Physical Therapy Assessment Goals activities Short Term Goal (STG) Pt will be able to don socks indep w/o inc pain STG Duration achieved Prison Goal (LTG) Pt will be able to start returning to walks of at least .75 mile w/o inc pain in back greater tahn 04/15 10/05-has done some walking w/ fishing but limited walking LTG Duration 12/26 strength Short Term Goal (STG) Pt will be indep w/HEP STG Duration achieved-advancing as able Prison Goal (LTG) Pt will score at least 4+/5 on all LE MMT and at least 3/5 for LPM to show improved stabiltiy and strength 10/05-improving LTG Duration 12/26 KIRILL Impairment 21/50 Short Term Goal (STG) Pt will will improve KIRILL score to no higher than 15/50 to show improved functional ability. 10/05-n/t STG Duration 11/07 Prison Goal (LTG) Pt will will improve KIRILL score to no higher than 8/50 to show improved functional ability. LTG Duration 12/28/22 Assessment Summary Assessment Pt is progressing with PT but has only been seen 6 times including IE and today's visit and is doing well with exercises and was able to tolerate advanced exercises today. He did irritate his back more w/a couple recent falls when fishing but no major injuries form these falls. He is compliant w/HEP but has not done much walking except his walk to fishing recently. He would benefit from cont PT to dec back pain and improve his functional ability. Physical Therapy Plan Frequency and Duration Frequency of Treatment 1x/Week Duration of treatment (weeks) 12 Plan of Care Start Date 10/05/22 Plan of Care End Date 12/28/22 Therapeutic Interventions Therapeutic Interventions Balance Training,Gait Training ,Home Exercise Program,Joint Mobilizations,Manual Therapy, Neuromuscular Re-education, Orthotic/Prosthetic Management ,Patient/Caregiver Education, Self-Care/Home Management,Soft Tissue Mobilization,Taping, Therapeutic Activities, Therapeutic Exercises Modalities Cold Pack/Ice Massage,Hot Packs,Ultrasound Next Visit Focus/Plan Next Note Type Treatment Note Next Visit Plan ask how bridges went. review exercises and advnace core, manaul to hips and LB & progress sacral and innominate mobility; be aware-pt appears to have about 2.5 finger diastisis
--- NOTE | 2022-10-05 18:00 | PT.OPPOC ---
Physical, Occupational & Speech Therapy At [facility] Current Diagnoses Cervicalgia (10/05/22) Low back pain, unspecified (10/05/22) Difficulty in walking, not elsewhere classified (10/05/22) Abnormal posture (10/05/22) Weakness (10/05/22) Visit Care Team Role Provider Type Edgar Zayas DO Attending Provider Physician Family Provider Primary Care Provider Referring Provider Specialty: Family Practice Address: [address] [place] [address], [facility] Email: [email or web address] PT-OP-T Assessment and Plan Start: 07/28/22 17:09 Freq: Status: Active Protocol: Document 10/05/22 14:24 [facility] (Rec: 10/05/22 15:19 [facility] [id number]) Physical Therapy Assessment Goals activities Short Term Goal (STG) Pt will be able to don socks indep w/o inc pain STG Duration achieved Fdc Goal (LTG) Pt will be able to start returning to walks of at least .75 mile w/o inc pain in back greater tahn 04/15 10/05-has done some walking w/ fishing but limited walking LTG Duration 12/26 strength Short Term Goal (STG) Pt will be indep w/HEP STG Duration achieved-advancing as able Motel Front Desk Clerk Goal (LTG) Pt will score at least 4+/5 on all LE MMT and at least 3/5 for LPM to show improved stabiltiy and strength 10/05-improving LTG Duration 12/26 KIRILL Impairment 21/50 Short Term Goal (STG) Pt will will improve KIRILL score to no higher than 15/50 to show improved functional ability. 10/05-n/t STG Duration 11/07 Motel Front Desk Clerk Goal (LTG) Pt will will improve KIRILL score to no higher than 8/50 to show improved functional ability. LTG Duration 12/28/22 Assessment Summary Assessment Pt is progressing with PT but has only been seen 6 times including IE and today's visit and is doing well with exercises and was able to tolerate advanced exercises today. He did irritate his back more w/a couple recent falls when fishing but no major injuries form these falls. He is compliant w/HEP but has not done much walking except his walk to fishing recently. He would benefit from cont PT to dec back pain and improve his functional ability. Physical Therapy Plan Frequency and Duration Frequency of Treatment 1x/Week Duration of treatment (weeks) 12 Plan of Care Start Date 10/05/22 Plan of Care End Date 12/28/22 Therapeutic Interventions Therapeutic Interventions Balance Training,Gait Training ,Home Exercise Program,Joint Mobilizations,Manual Therapy, Neuromuscular Re-education, Orthotic/Prosthetic Management ,Patient/Caregiver Education, Self-Care/Home Management,Soft Tissue Mobilization,Taping, Therapeutic Activities, Therapeutic Exercises Modalities Cold Pack/Ice Massage,Hot Packs,Ultrasound Next Visit Focus/Plan Next Note Type Treatment Note Next Visit Plan ask how bridges went. review exercises and advnace core, manaul to hips and LB & progress sacral and innominate mobility; be aware-pt appears to have about 2.5 finger diastisis Plan of Care Dates Plan of Care Start Date 10/05/22 Plan of Care End Date 12/28/22 Electronically Signed by: Claudia Hanna, PT 10/05/22 1800 If you are in agreement with this Plan of Care, please return a signed and dated copy. I have reviewed this Plan of Care and certify that the skilled therapy services above are required to meet the patient?s needs. Physician Signature Date Printed Name and Credentials Clinical Instructor Signature Printed Name and Credentials
--- NOTE | 2022-11-15 18:08 | PT.OPDS ---
Current Diagnoses Cervicalgia (10/05/22) Low back pain, unspecified (10/05/22) Difficulty in walking, not elsewhere classified (10/05/22) Abnormal posture (10/05/22) Weakness (10/05/22) Visit Care Team Role Provider Type Edgar Zayas DO Attending Provider Physician Family Provider Primary Care Provider Referring Provider Specialty: [facility] Practice Address: [address] [place] [address], [facility] Email: [email or web address] Visit Number Visit Number 6 Discharge Summary PT-OP-B Current Condition Start: 07/28/22 17:09 Freq: Status: Active Protocol: Document 08/02/22 13:33 [facility] (Rec: 08/02/22 14:19 [facility] [id number]) Current Condition History of Current Condition Onset Date chronic Current Complaints LBP; recent foot pain History of Current Condition 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 He has also had a sled accident 60 years ago where he hurt his neck and that has been off and on since then. Pt reprots in the last 6 months, he has numbness in his feet and he wakes up in the AM w/very painful toes. It is getting worse and there are times he wakes up and it feels . it takes a little while for that to settle down. When he first wakes up, he has darker feet. hx of CABG in 2001. Bottom of R foot numbness doesn't go away. Pt reports prostate sugery about 3 weeks ago. Pt reports the last 6 months or so, his legs get tired easier. Denies any calf pain but does have cramps occ. notices neck is a lot stiffer that past year or 2. Pt reports when he lays on his R side, he gets pain all the way across abdomen. Pt has twitching throughout his body. Had a complete cardiology work up and no address of this issue was done. Pt and his are trying to get at least 1/4 mile in. By the time, he gets to the mailbox, he can't go further d/t his back pain. He used to walk miles a day a few years ago. He has a back brace and that helps. 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 [place]. USes a chair Prior Treatments and Tests MRI IMPRESSION: Multilevel, relatively mild given patient age, lumbar spondylosis causing foraminal stenosis as above. No significant central canal stenosis. abdomen MRI: IMPRESSION: Normal for age, source of left lower quadrant pain not identified. No sign of diverticulitis, colitis, or underlying infection or neoplasm. Treatment Goals Patient/Caregiver Goals Return to being able to walk, be able to get socks on himself PT-OP-C Subjective Start: 07/28/22 17:09 Freq: Status: Active Protocol: Document 10/05/22 14:24 [facility] (Rec: 10/05/22 15:19 [facility] [id number]) OP-PT Subjective Patient Comments Patient Comments Pt got tangled in drift wood 2 different times when fishing. Once 2 weeks ago and another 1 week ago. He was able to get up himself and go back [facility]. His back is sore from this. PT-OP-D Balance Start: 07/28/22 17:09 Freq: Status: Active Protocol: Document 08/02/22 13:33 [facility] (Rec: 08/02/22 14:19 [facility] [id number]) Balance Tests Single Limb Standing Single Limb- Right >30 sec Single Limb- Left 17 sec PT-OP-F Manual Assessment Start: 07/28/22 17:09 Freq: Status: Active Protocol: Document 08/02/22 13:33 [facility] (Rec: 08/02/22 14:19 [facility] [id number]) Manual Assessments Joint Mobility Assessment Joint Mobility Assessment equal greater trochanter; L iliac crest higher PT-OP-G Mobility & Gait Start: 07/28/22 17:09 Freq: Status: Active Protocol: Document 08/02/22 13:33 [facility] (Rec: 08/02/22 14:19 [facility] [id number]) OP Gait Assessment Comments Gait Comments heaving drop onto LLE ; dec pelvis and UE motion PT-OP-J Posture/Palpation/Skin Start: 07/28/22 17:09 Freq: Status: Active Protocol: Document 08/02/22 13:33 [facility] (Rec: 08/02/22 14:19 [facility] [id number]) Posture Evaluation Onelia Postural Classification System Onelia Postural Classifications Posterior/Anterior Lumbar Protective Mechanism Left AP 1 Lumbar Protective Mechanism Right AP 1 Lumbar Protective Mechanism Left PA 2 Lumbar Protective Mechanism Right PA 1 Comments Posture Comments L SB cervical, R pelvic shear, RLE turned out, kyhposis, lack of lordosis PT-OP-K Range of Motion Start: 07/28/22 17:09 Freq: Status: Active Protocol: Document 08/02/22 13:33 [facility] (Rec: 08/02/22 14:19 [facility] [id number]) Lumbar Spine Range of Motion Lumbar Spine Active Percentage Flexion 10 Extension 20 Rotation Left 25 Rotation Right 25 Lateral Flexion Left 25 Lateral Flexion Right 50 Comments pain flex and ext; pain L B SB PT-OP-L Special Tests Start: 07/28/22 17:09 Freq: Status: Active Protocol: Document 08/02/22 13:33 [facility] (Rec: 08/02/22 14:19 [facility] [id number]) Special Tests Lumbar Spine Special Tests Slump Test Results dural tension B at end range knee ext PT-OP-M Strength Start: 07/28/22 17:09 Freq: Status: Active Protocol: Document 10/05/22 14:24 [facility] (Rec: 10/05/22 15:19 [facility] [id number]) Hip Strength Hip Manual Muscle Testing Right Flexion (L2) 4 Good External Rotation 4 Good Internal Rotation 4+ Good+ Left Flexion (L2) 4 Good External Rotation 5 Normal Internal Rotation 5 Normal Knee Strength Knee Manual Muscle Testing Right Flexion (S2) 4 Good Extension (L3) 5 Normal Left Flexion (S2) 5 Normal Extension (L3) 5 Normal Ankle/Foot Strength Ankle and Foot Manual Muscle Testing Right Dorsiflexion (L4) 4 Good Plantarflexion (S1) 5 Normal Inversion 5 Normal Eversion (S1) 5 Normal Comments PF tested seated B Left Dorsiflexion (L4) 4 Good Plantarflexion (S1) 5 Normal Inversion 5 Normal Eversion (S1) 5 Normal PT-OP-T Assessment and Plan Start: 07/28/22 17:09 Freq: Status: Active Protocol: Document 11/15/22 18:07 [facility] (Rec: 11/15/22 18:08 [facility] [id number]) Physical Therapy Assessment Goals activities Short Term Goal (STG) Pt will be able to don socks indep w/o inc pain STG Duration achieved [facility] Goal (LTG) Pt will be able to start returning to walks of at least .75 mile w/o inc pain in back greater tahn 04/15 10/05-has done some walking w/ fishing but limited walking LTG Duration 12/26 strength Short Term Goal (STG) Pt will be indep w/HEP STG Duration achieved-advancing as able [facility] Goal (LTG) Pt will score at least 4+/5 on all LE MMT and at least 3/5 for LPM to show improved stabiltiy and strength 10/05-improving LTG Duration 12/26 KIRILL Impairment 21/50 Short Term Goal (STG) Pt will will improve KIRILL score to no higher than 15/50 to show improved functional ability. 10/05-n/t STG Duration 11/07 [employer] Goal (LTG) Pt will will improve KIRILL score to no higher than 8/50 to show improved functional ability. LTG Duration 12/28/22 Assessment Summary Assessment help desk representative called and spoke with patient, he states, I am done for now. patient ready for D/C. He did make some progress w/PT and is idnep w/ HEP for core exercsies. He was walking w/fishing but did still note pain. DC d/t pt request. Physical Therapy Plan Discharge Physical Therapy Discharge Reasons Patient Request
== END 2022-11-17 15:43 | disposition home or self-care (01) ==
LOC: PHYS 14:15
PROVIDERS: Absent Provider Family Medicine; Family Provider Family Medicine; PCP Family Medicine; Referring Provider Family Medicine; Visit Provider Family Medicine
DX: M54.50 Low back pain, unspecified (principal); R53.1 Weakness; R29.3 Abnormal posture; R26.2 Difficulty in walking, not elsewhere classified; M54.2 Cervicalgia
CPT/HCPCS: 97110; 97140; 97162

== ENCOUNTER → 2022-10-12 16:51 | Outpatient (CLI) | payer OTHER, SELFPAY ==
[2022-08-19 12:03] VITALS: BMI 30.1
== END ==
PROVIDERS: Family Provider Family Medicine; PCP Family Medicine; Visit Provider Urology
DX: N40.1 Benign prostatic hyperplasia with lower urinary tract symptoms (principal); N13.8 Other obstructive and reflux uropathy; R33.9 Retention of urine, unspecified; R39.9 Unspecified symptoms and signs involving the genitourinary system; Z77.22 Contact with and (suspected) exposure to environmental tobacco smoke (acute) (chronic); Z77.098 Contact with and (suspected) exposure to other hazardous, chiefly nonmedicinal, chemicals
CPT/HCPCS: 51798; 81002; 87086

== ENCOUNTER → 2022-11-16 13:29 | Outpatient (CLI) | payer OTHER, SELFPAY ==
[2022-08-19 12:03] VITALS: BMI 30.1
[2022-11-16 16:33] LABS: Folate 14.6 ng/mL (2.76-20.0); Vitamin B12 788 pg/mL (239-931)
[2022-11-18 20:17] LABS: Albumin 3.8 g/dL (2.9-4.4); Alpha-1-Globulin 0.2 g/dL (0.0-0.4); Alpha-2-Globulin 0.6 g/dL (0.4-1.0); Gamma Globulin 0.8 g/dL (0.4-1.8); Globulin Total 2.3 g/dL (2.2-3.9); Protein, Total 6.1 g/dL (6.0-8.5)
== END ==
PROVIDERS: Family Provider Family Medicine; PCP Family Medicine; Referring Provider Psychiatry & Neurology Neurology; Visit Provider Psychiatry & Neurology Neurology
DX: G62.9 Polyneuropathy, unspecified (principal)
CPT/HCPCS: 36415; 82607; 82746; 84155; 84165

== ENCOUNTER → 2022-11-23 16:04 | Outpatient (CLI) | payer OTHER, SELFPAY ==
[2022-08-19 12:03] VITALS: BMI 30.1
== END ==
PROVIDERS: Family Provider Family Medicine; PCP Family Medicine; Visit Provider Urology
DX: R39.9 Unspecified symptoms and signs involving the genitourinary system (principal)
CPT/HCPCS: 87077; 87086; 87186

== ENCOUNTER → 2023-01-14 14:45 | Outpatient (CLI) | payer OTHER, SELFPAY ==
[2022-08-19 12:03] VITALS: BMI 30.1
--- NOTE | 2023-01-14 | DI.RAD.S_ITS ---
PROCEDURE: XR CERVICAL SPINE 2V OR 3V INDICATIONS: BACK PAIN TECHNIQUE: 3 view(s) of the cervical spine were acquired. COMPARISON: None. FINDINGS: Bones: No fractures or dislocations to the T1 level. The lateral masses of C1 appear intact on the odontoid view. No suspicious bony lesions. Multilevel disc height loss with anterior osteophyte formation. Soft tissues: No prevertebral soft tissue swelling. Cerclage wires project over the chest. IMPRESSION: Mild cervical spondylitic changes for patient age. Dictated by: Jerome Alvarado M.D. on 01/15/2023 at 10:56 Approved by: Jerome Alvarado M.D. on 01/15/2023 at 10:57
--- NOTE | 2023-01-14 | DI.RAD.S_ITS ---
PROCEDURE: XR THORACIC SPINE 3V INDICATIONS: BACK PAIN TECHNIQUE: 3 views of the thoracic spine were acquired. COMPARISON: None. FINDINGS: Bones: No fractures or dislocations. No suspicious bony lesions. 12 pairs of ribs are noted, and appear intact where visualized. Mild disc height loss. Large anterior osteophytes. Soft tissues: No paravertebral stripe thickening. IMPRESSION: Slight thoracic spondylitic changes of the spine. Dictated by: Jerome Alvarado M.D. on 01/15/2023 at 10:57 Approved by: Jerome Alvarado M.D. on 01/15/2023 at 11:01
--- NOTE | 2023-01-14 | DI.RAD.S_ITS ---
PROCEDURE: XR LUMBAR SPINE 2-3V INDICATIONS: BACK PAIN TECHNIQUE: 3 views of the lumbar spine were acquired. COMPARISON: [facility], , L-SPINE 2-3 VIEWS, 04/16/2012, 9:20. FINDINGS: Bones: 5 [id number] vertebrae are present. No vertebral body compression fractures. No suspicious bony lesions. Disc height loss throughout lumbar spine. Mild anterolisthesis of L4 on L5. The previously seen sclerotic lesion within L2 now has a lucent center and appears slightly enlarged Soft tissues: Overlying bowel gas pattern is normal. No suspicious soft tissue calcifications. IMPRESSION: Morphological changes to previously presumed bone island. 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 Dictated by: Jerome Alvarado M.D. on 01/15/2023 at 10:29 Approved by: Jerome Alvarado M.D. on 01/15/2023 at 10:43
== END ==
PROVIDERS: Family Provider Family Medicine; PCP Family Medicine; Referring Provider Family Medicine; Visit Provider Family Medicine
DX: M47.812 Spondylosis without myelopathy or radiculopathy, cervical region (principal); M43.16 Spondylolisthesis, lumbar region; M54.50 Low back pain, unspecified; M54.9 Dorsalgia, unspecified; G89.29 Other chronic pain
CPT/HCPCS: 72040; 72072; 72100

== ENCOUNTER → 2023-02-22 09:45 | Outpatient (CLI) | payer OTHER, SELFPAY ==
[2022-08-19 12:03] VITALS: BMI 30.1
== END ==
PROVIDERS: Family Provider Family Medicine; PCP Family Medicine; Visit Provider Urology
DX: N40.1 Benign prostatic hyperplasia with lower urinary tract symptoms (principal); N13.8 Other obstructive and reflux uropathy; R33.9 Retention of urine, unspecified; R39.9 Unspecified symptoms and signs involving the genitourinary system; N52.01 Erectile dysfunction due to arterial insufficiency; L98.9 Disorder of the skin and subcutaneous tissue, unspecified; Z98.890 Other specified postprocedural states; Z77.098 Contact with and (suspected) exposure to other hazardous, chiefly nonmedicinal, chemicals
CPT/HCPCS: 51798; 81002; 87086; 99214

== ENCOUNTER → 2023-03-14 07:42 | Outpatient (CLI) | payer OTHER, SELFPAY ==
[2022-08-19 12:03] VITALS: BMI 30.1
[2023-03-14 09:56] LABS: Cholesterol 160 mg/dL (140-199); HDL Cholesterol 45 mg/dL (40-60); LDL Cholesterol Calculated 103 mg/dL (<100); Triglycerides 60 mg/dL (35-150)
== END ==
PROVIDERS: Family Provider Family Medicine; PCP Family Medicine; Referring Provider Internal Medicine Cardiovascular Disease; Visit Provider Internal Medicine Cardiovascular Disease
DX: E78.5 Hyperlipidemia, unspecified (principal)
CPT/HCPCS: 36415; 80061

== ENCOUNTER → 2023-04-25 15:47 | Outpatient (CLI) | payer OTHER, SELFPAY ==
[2023-04-12 13:18] VITALS: BMI 30.1
== END ==
PROVIDERS: Family Provider Family Medicine; PCP Family Medicine; Visit Provider Urology
DX: R33.9 Retention of urine, unspecified (principal); R30.0 Dysuria; R82.81 Pyuria; Z98.890 Other specified postprocedural states
CPT/HCPCS: 51798; 81002; 87086; 99213

== ENCOUNTER → 2023-06-01 08:36 | Outpatient (CLI) | payer OTHER, SELFPAY ==
[2023-04-12 13:18] VITALS: BMI 30.1
--- NOTE | 2023-06-01 08:39 | DI.RAD.S_ITS ---
PROCEDURE: XR HAND LT MIN 3V INDICATIONS: Left hand 5th finger swollen and hot to the touch TECHNIQUE: 3 views of the hand(s) acquired. COMPARISON: None. FINDINGS: Bones: No fractures or dislocations. Carpal bones are normally aligned. No suspicious bony lesions. Osseous erosions in the 5th PIP joint Soft tissues: No suspicious soft tissue calcifications. No soft tissue gas. Vascular clips project over radial margin of the distal forearm. IMPRESSION: Nonspecific osseous erosions involving the 5th PIP joint which could be related to infection or inflammatory arthritis. Dictated by: Tracey Benitez MD, PhD on 06/01/2023 at 9:38 Approved by: Tracey Benitez MD, PhD on 06/01/2023 at 9:40
== END ==
PROVIDERS: Family Provider Family Medicine; PCP Family Medicine; Referring Provider Nurse Practitioner Family; Visit Provider Nurse Practitioner Family
DX: M85.842 Other specified disorders of bone density and structure, left hand (principal); M79.642 Pain in left hand
CPT/HCPCS: 73130

== ENCOUNTER → 2023-07-08 07:50 | Outpatient (CLI) | payer OTHER, SELFPAY ==
[2023-04-12 13:18] VITALS: BMI 30.1
[2023-07-08 08:55] LABS: Add Manual Diff / Slide Review NO; Basophils Absolute Auto 100 /uL (0-100); Eosinophils Absolute Auto 200 /uL (0-450); Eosinophils Percent Auto 2.9 % (2-4); Hematocrit 40.2 % (41-53); Hemoglobin 13.7 g/dL (13.5-17.5); Lymphocytes Absolute Auto 2200 /uL (1100-4500); Lymphocytes Percent Auto 39.6 % (25-40); Mean Corpuscular HGB Conc 34.2 % (30-36); Mean Corpuscular Hemoglobin 31.9 PG (26-34); Mean Corpuscular Volume 93.1 fL (80-100); Monocytes Absolute Auto 500 /uL (0-900); Monocytes Percent Auto 8.5 % (3-14); Neutrophils Absolute Auto 2600 /uL (1500-7000); Platelet Count 199 X10^3/uL (150-400); Red Blood Cell Count 4.31 X10^6/uL (4.5-5.9); Red Cell Distribution Width 13.5 % (11.6-14.8); White Blood Cell Count 5.5 X10^3/uL (4.5-11.0)
[2023-07-08 09:10] LABS: Alanine Aminotransferase 65 IU/L (<50); Albumin 4.3 g/dL (3.5-5.0); Albumin Globulin Ratio 1.9 (1.0-2.8); Alkaline Phosphatase 90 U/L (38-126); Aspartate Aminotransferase 42 IU/L (17-59); BUN Creatinine Ratio 26.7 (6-22); Bilirubin Total 1.3 mg/dL (0.2-1.3); Blood Urea Nitrogen 20 mg/dL (9-20); Calcium 9.2 mg/dL (8.4-10.2); Carbon Dioxide 28 mmol/L (22-32); Chloride 105 mmol/L (98-107); Cholesterol 121 mg/dL (140-199); Estimated Glomerular Filt Rate > 60 mL/min (>60); Globulin 2.3 g/dL (1.7-4.1); Glucose 97 mg/dL (80-110); HDL Cholesterol 49 mg/dL (40-60); HEMOLYSIS < 15 (0-50); LDL Cholesterol Calculated 58 mg/dL (<100); Potassium 4.8 mmol/L (3.4-5.1); Sodium 136 mmol/L (137-145); Total Protein 6.6 g/dL (6.3-8.2); Triglycerides 70 mg/dL (35-150)
[2023-07-08 09:40] LABS: Prostate Specific Antigen Scrn 0.945 ng/mL (0.1-4.0)
== END ==
LOC: LAB 07:51
PROVIDERS: Family Provider Family Medicine; PCP Family Medicine; Referring Provider Family Medicine; Visit Provider Family Medicine
DX: E78.5 Hyperlipidemia, unspecified (principal); Z12.5 Encounter for screening for malignant neoplasm of prostate; I25.10 Atherosclerotic heart disease of native coronary artery without angina pectoris; M54.9 Dorsalgia, unspecified; G89.29 Other chronic pain
CPT/HCPCS: 36415; 80053; 80061; 85025; G0103

== ENCOUNTER → 2023-10-13 14:24 | Outpatient (CLI) | payer OTHER, SELFPAY ==
[2023-04-12 13:18] VITALS: BMI 30.1
[2023-10-13 16:47] LABS: Estimated Glomerular Filt Rate > 60 mL/min (>60)
== END ==
PROVIDERS: Family Provider Family Medicine; PCP Family Medicine; Referring Provider Family Medicine; Visit Provider Family Medicine
DX: K59.09 Other constipation (principal); R10.9 Unspecified abdominal pain
CPT/HCPCS: 36415; 82565

== ENCOUNTER → 2023-10-14 12:22 | Outpatient (CLI) | payer OTHER, SELFPAY ==
[2023-04-12 13:18] VITALS: BMI 30.1
--- NOTE | 2023-10-14 12:23 | DI.CT.S_ITS ---
PROCEDURE: CT ABDOMEN PELVIS W CON INDICATIONS: constipation and abdominal pain TECHNIQUE: After the administration of intravenous contrast, axial sections acquired from the lung bases to the pubic symphysis. Coronal and sagittal reformats were performed. For radiation dose reduction, the following was used: automated exposure control, adjustment of mA and/or kV according to patient size. COMPARISON: [facility], CT, CT ABDOMEN PELVIS W CON, 02/25/2022, 13:58. FINDINGS: Image quality: Diagnostic. Lower Chest: No significant findings. ABDOMEN: Liver: No solid mass. Steatosis. Gallbladder: No radiopaque gallstones or wall thickening. Biliary ducts: No biliary dilation. Pancreas: No ductal dilation. Spleen: Size is within normal limits. Adrenal Glands: No adrenal nodules. Kidneys and Ureters: No hydronephrosis. No solid mass. No complex renal cystic lesion which requires follow up. Simple left renal cyst. Stomach and Bowel: Normal colonic caliber, without significant wall thickening. Minimal diverticula. Peritoneum: No abnormal intraperitoneal fluid. No free air. Ventral Wall: No significant ventral hernia. Abdominal Nodes: No retroperitoneal or mesenteric adenopathy by size criteria. Vessels: Aorta and inferior vena cava are normal in size. PELVIS: Pelvic Organs: Prostate gland is mildly prominent. Bladder: No bladder wall thickening, accounting for underdistention. Pelvic Nodes: No enlarged lymph nodes. Miscellaneous: No inguinal hernias are seen. Bones: No aggressive osseous abnormality. IMPRESSION: No visualized acute intra-abdominal or pelvic process. Diverticulosis. Dictated by: Chelsey Posadas M.D. on 10/14/2023 at 16:44 Approved by: Chelsey Posadas M.D. on 10/14/2023 at 16:49
== END ==
LOC: CT 12:22
PROVIDERS: Family Provider Family Medicine; PCP Family Medicine; Referring Provider Family Medicine; Visit Provider Family Medicine
DX: R10.9 Unspecified abdominal pain (principal); K59.09 Other constipation; K57.90 Diverticulosis of intestine, part unspecified, without perforation or abscess without bleeding
CPT/HCPCS: 74177; Q9967

== ENCOUNTER → 2023-11-23 16:08 | Outpatient (CLI) | payer OTHER, SELFPAY ==
[2023-04-12 13:18] VITALS: BMI 30.1
[2023-11-23 17:06] LABS: Add Manual Diff / Slide Review NO; Basophils Absolute Auto 0 /uL (0-100); Basophils Percent Auto 0.6 % (0-2); Eosinophils Absolute Auto 100 /uL (0-450); Eosinophils Percent Auto 2.1 % (2-4); Hematocrit 40.9 % (41-53); Hemoglobin 13.7 g/dL (13.5-17.5); Lymphocytes Absolute Auto 1700 /uL (1100-4500); Lymphocytes Percent Auto 29.5 % (25-40); Mean Corpuscular HGB Conc 33.4 % (30-36); Mean Corpuscular Hemoglobin 31.6 PG (26-34); Mean Corpuscular Volume 94.8 fL (80-100); Monocytes Absolute Auto 600 /uL (0-900); Monocytes Percent Auto 9.4 % (3-14); Neutrophils Absolute Auto 3400 /uL (1500-7000); Neutrophils Percent Auto 58.4 % (50-75); Platelet Count 223 X10^3/uL (150-400); Red Blood Cell Count 4.31 X10^6/uL (4.5-5.9); Red Cell Distribution Width 13.5 % (11.6-14.8); White Blood Cell Count 5.9 X10^3/uL (4.5-11.0)
[2023-11-23 17:33] LABS: Estimated Glomerular Filt Rate 55 mL/min (>60)
[2023-11-23 17:52] LABS: Alanine Aminotransferase 50 IU/L (<50); Albumin 3.9 g/dL (3.5-5.0); Albumin Globulin Ratio 1.3 (1.0-2.8); Alkaline Phosphatase 92 U/L (38-126); Aspartate Aminotransferase 34 IU/L (17-59); BUN Creatinine Ratio 13.6 (6-22); Bilirubin Total 0.8 mg/dL (0.2-1.3); Blood Urea Nitrogen 18 mg/dL (9-20); Calcium 9.8 mg/dL (8.4-10.2); Carbon Dioxide 28 mmol/L (22-32); Chloride 100 mmol/L (98-107); Estimated Glomerular Filt Rate 54 mL/min (>60); Globulin 2.9 g/dL (1.7-4.1); Glucose 85 mg/dL (80-110); HEMOLYSIS < 15 (0-50); Potassium 4.5 mmol/L (3.4-5.1); Sodium 135 mmol/L (137-145); Total Protein 6.8 g/dL (6.3-8.2)
== END ==
PROVIDERS: Radiology Diagnostic Radiology; Family Provider Family Medicine; PCP Family Medicine; Referring Provider Physician Assistant; Visit Provider Physician Assistant
DX: M79.89 Other specified soft tissue disorders (principal); K59.09 Other constipation
CPT/HCPCS: 36415; 80053; 82565; 84443; 85025

== ENCOUNTER → 2023-11-27 16:17 | Outpatient (CLI) | payer OTHER, SELFPAY ==
[2023-04-12 13:18] VITALS: BMI 30.1
--- NOTE | 2023-11-27 16:18 | DI.US.S_ITS ---
PROCEDURE: US PERIPH VENOUS LOW EXTREM RT INDICATIONS: edema x 6 mos TECHNIQUE: Real-time imaging, as well as color and pulse Doppler interrogation, were performed of the lower extremity deep veins from the inguinal ligament to the popliteal fossa, with documentation of the visualized calf veins. COMPARISON: None. FINDINGS: The common femoral, femoral, popliteal, and the visualized calf veins are normally compressible, and free of intraluminal thrombus. Color and pulse Doppler demonstrate normal phasic intraluminal flow. There is normal augmentation response to distal compression maneuver. IMPRESSION: No findings of lower extremity deep venous thrombosis. Dictated by: Carlin Carpio M.D. on 11/27/2023 at 16:29 Approved by: Carlin Carpio M.D. on 11/27/2023 at 16:30
== END ==
PROVIDERS: Family Provider Family Medicine; PCP Family Medicine; Referring Provider Physician Assistant; Visit Provider Physician Assistant
DX: M79.89 Other specified soft tissue disorders (principal)
CPT/HCPCS: 93971

== ENCOUNTER → 2023-12-25 08:58 | Outpatient (CLI) | payer OTHER, SELFPAY ==
[2023-04-12 13:18] VITALS: BMI 30.1
== END ==
PROVIDERS: Family Provider Family Medicine; PCP Family Medicine; Referring Provider Psychiatry & Neurology Neurology; Visit Provider Psychiatry & Neurology Neurology
DX: G62.9 Polyneuropathy, unspecified (principal)
CPT/HCPCS: 36415; 83036; 84378

== ENCOUNTER → 2024-03-02 12:39 | Outpatient (CLI) | payer OTHER, SELFPAY ==
[2023-04-12 13:18] VITALS: BMI 30.1
--- NOTE | 2024-03-02 12:39 | DI.CT.S_ITS ---
PROCEDURE: CT CERVICAL SPINE WO CON INDICATIONS: neck pain, headaches TECHNIQUE: Noncontrast 3 mm thick sections acquired from the skull base to the T4 level. Sagittal and coronal reformats were then constructed. For radiation dose reduction, the following was used: automated exposure control, adjustment of mA and/or kV according to patient size. COMPARISON: None. FINDINGS: Image quality: Excellent. Bones: No fractures or dislocations. Visualized superior ribs are intact. Multilevel degenerative changes of the disc height loss, degenerative endplate changes, facet and uncovertebral arthropathy. Mild central canal stenosis at C3-C4. No high-grade central canal stenosis. Multilevel neural foraminal stenosis, severe left and moderate right at C3-C4, severe right and mild left at C5-C6. Soft tissues: Prevertebral soft tissues are normal in thickness. No paravertebral hematomas. No apical pneumothoraces. Pineal calcification is noted. IMPRESSION: Multilevel degenerative changes of the cervical spine as described above. No acute osseous abnormalities. Dictated by: Brock Welch M.D. on 03/02/2024 at 19:57 Approved by: Brock Weclh M.D. on 03/02/2024 at 20:00
--- NOTE | 2024-03-02 12:39 | DI.CT.S_ITS ---
PROCEDURE: CT SINUS SCREEN WO CON INDICATIONS: chronic sinusitis TECHNIQUE: Noncontrast 3.0 mm axial images acquired from the frontal sinuses to the mid-sella, with coronal and sagittal reformats. For radiation dose reduction, the following was used: automated exposure control, adjustment of mA and/or kV according to patient size. COMPARISON: None. FINDINGS: Image quality: Excellent. Maxillary Sinuses: No bony remodeling or destruction. Tiny right mucous retention cyst. Sinuses are otherwise clear. Ethmoid Air Cells: No bony remodeling or destruction. Sinuses are clear. Sphenoid Sinuses: No bony remodeling or destruction. Sinuses are clear. Frontal Sinuses: No bony remodeling or destruction. Sinuses are clear. Ostiomeatal Complexes: Ostiomeatal complexes are patent. No Reji cells. Miscellaneous: Visualized intra-orbital contents are normal. No roberto bullosa or paradoxical turbinate curvature. No significant nasal septal deviation. IMPRESSION: No significant paranasal sinus disease. Dictated by: Brock Welch M.D. on 03/02/2024 at 20:00 Approved by: Brock Welch M.D. on 03/02/2024 at 20:03
== END ==
PROVIDERS: Family Provider Family Medicine; PCP Family Medicine; Referring Provider Family Medicine; Visit Provider Family Medicine
DX: M54.2 Cervicalgia (principal); R51.9 Headache, unspecified; G89.29 Other chronic pain; J32.0 Chronic maxillary sinusitis
CPT/HCPCS: 70486; 72125

== ENCOUNTER → 2024-04-01 16:38 | Outpatient (CLI) | payer OTHER, SELFPAY ==
[2023-04-12 13:18] VITALS: BMI 30.1
--- NOTE | 2024-04-01 16:40 | DI.MRI.S_ITS ---
PROCEDURE: MR BRAIN (IAC) WWO CON INDICATIONS: HEARING LOSS,TINNITUS,DIZZINESS,WORSENING MCMANUS TECHNIQUE: Noncontrast sagittal T1 spin echo, axial FLAIR, axial gradient echo, axial diffusion and ADC through the brain. Axial thin-slice 3D CISS, coronal TruFISP, axial T1 spin echo with fat saturation through the internal auditory canals. After the administration of contrast, thin slice axial and coronal T1 spin echo with fat saturation through the internal auditory canals, and axial and coronal and sagittal T1 spin echo with fat saturation through the brain. COMPARISON: None. FINDINGS: Image quality: Excellent. Cerebellopontine angles: No cerebellopontine angle masses. Inner ear structures appear normally formed. No suspicious enhancement in the internal auditory canal or along the course of the 7th cranial nerve. CSF spaces: Ventricles are normal in size and shape. No extra-axial fluid collections. Basal cisterns are patent. Brain: No intracranial bleeds or mass effects. Meade-white matter interface is intact. No abnormal intracranial enhancement. Diffusion weighted images demonstrate no acute ischemic insults. Brainstem appears normal. Normal intravascular flow voids are present. Note is made of age-appropriate brain parenchymal volume loss and chronic small vessel ischemic changes. Skull and face: Calvarial marrow signal is normal. Orbits appear normal. Sinuses: Sinuses and mastoids are clear. IMPRESSION: No masses or abnormal enhancement are seen within the cerebellopontine angle cisterns or within the internal auditory canals. Unremarkable intracranial study, without an imaging explanation found for the patient's presenting history of headache. Note is made of age-appropriate brain parenchymal volume loss and chronic small vessel ischemic changes. Dictated by: Carlin Carpio M.D. on 04/01/2024 at 17:38 Approved by: Carlin Carpio M.D. on 04/01/2024 at 17:39
== END ==
PROVIDERS: Family Provider Family Medicine; PCP Family Medicine; Referring Provider Psychiatry & Neurology Neurology; Visit Provider Psychiatry & Neurology Neurology
DX: H93.13 Tinnitus, bilateral (principal); R42 Dizziness and giddiness; H90.3 Sensorineural hearing loss, bilateral
CPT/HCPCS: 70553; A9579

== ENCOUNTER 2024-04-03 13:45 | Outpatient (RCR) | payer OTHER, SELFPAY ==
[2023-04-12 13:18] VITALS: BMI 30.1
--- NOTE | 2024-01-10 16:42 | PT.OIE ---
Current Diagnoses Other chronic pain (01/10/24) Cervicalgia (01/10/24) Dorsalgia, unspecified (01/10/24) Past Medical History (Last Updated 09/29/23 @ 10:40 by Edgar Zayas DO) Abdominal pain Agent orange exposure (~1966) Anxiety Benign prostatic hyperplasia (~1999) Cataracts, bilateral (~1994) Chronic back pain Chronic headache (~2004) Colon polyps (~1989) Coronary artery disease Cyanosis of skin Depression Dysuria Erectile dysfunction Foot pain Fracture Glaucoma Hearing loss Hemorrhoid (~1974) History of depression History of high cholesterol History of urinary incontinence (~2004) Hx of neurological disease Hyperlipidemia Incomplete emptying of bladder Injury of cervical spine (~1960) Low back pain Lower urinary tract symptoms Macular degeneration (~1999) Measles Medicare annual wellness visit, subsequent Mumps Muscle twitch (~1966) Neck pain Pain of finger of left hand Polyneuropathy Precancerous skin lesion PTSD (post-traumatic stress disorder) (~1966) Recurrent sinusitis (~1969) Rosacea (~1994) Secondhand smoke exposure Sleep apnea (~2009) Sternum pain Tinnitus (~1974) Tuberculosis (~1965) Well adult exam Wheezing Past Surgical History (Last Reviewed 02/21/23 @ 11:26 by Edgar Zayas DO) Anesthesia History of colonoscopy History of heart bypass surgery (2001) History of prostate surgery History of tonsillectomy (~1945) Hx of bilateral cataract extraction Hx of circumcision Hx of cystoscopy Visit Care Team Role Provider Type Edgar Zayas DO Family Provider Physician Primary Care Provider Specialty: Family Practice Address: [address] [place] [address], [id number] Email: [email or web address] Lizy Lucero PA-C Attending Provider Advanced First Aid Instructor Referring Provider Specialty: Medical Wound Care Address: [address] [place] [address], [id number] Email: Physical Therapy Initial Evaluation PT-OP-A Visit Information Start: 12/28/23 17:30 Freq: Status: Active Protocol: Document 01/10/24 14:34 [facility] (Rec: 01/10/24 15:28 [facility] [id number]) Out-Patient Physical Therapy Visit Information Visit Information Visit Type Initial Evaluation Visit Start Time 14:35 Visit Stop Time 15:20 Visit Number 1 (02/15 since PN) Number of EMULSIFICATION OPERATOR Visits 0 PT-OP-B Current Condition Start: 12/28/23 17:30 Freq: Status: Active Protocol: Document 01/10/24 14:34 [facility] (Rec: 01/10/24 15:28 [facility] [id number]) Current Condition History of Current Condition Onset Date chronic-worse starting sept Current Complaints LBP and neck pain History of Current Condition Pt reports back is still bothering him and did PT last year with some help. Chronic issues but has fallen off exercises. Had a tobogen accident in 1960 and had a pinched n in C6 and immediately had a massive cramp of neck on L. So much so that it put his cervical into a bow and stretched out other side muscles. It gradually got better and he did see a chiro in the past that helped a lot. Over the years, it has been aggrevated and right now it is really bothering him. Found really good chiro. Sept neck got way worse and he feels like he has barely any range. Had a big hit in the head and had injury in 1958. Gets MCMANUS daily (-) almost always frontal. Pt got sun stroke in 2004 when working on top of [employer] for hours and has had MCMANUS since then. Notes dizziness and lightheadness is more common when getting up quickly from bending entire body over. Sense of balance is pretty much gone. did fall when fishing last year.Tripped over a log. Has macular degeneration and getting injections. Uses belt for back to help stability and can walk 200 yards to mailbox/back . If doesn't have it, then has more pain. 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 If uses, arm too much then pays for it for a couple days. 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 L knee has been giving him some trouble and gives out sporadically. Unsure what triggers it. 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 Prior Treatments and Tests Lumbar xray: Bones: 5 non-rib -bearing vertebrae are present . No vertebral body compression fractures. No suspicious bony lesions. Disc height loss throughout lumbar spine. Mild anterolisthesis of L4 on L5. The previously seen sclerotic lesion within L2 now has a lucent center and appears slightly enlarged cervical xray: Bones: No fractures or dislocations to the T1 level. The lateral masses of C1 appear intact on the odontoid view. No suspicious bony lesions. Multilevel disc height loss with anterior osteophyte formation. lumbar MRI: T12-L1: Mild endplate degenerative changes. No significant disc bulge. The foramina and central canal are patent. L1-L2: Mild endplate degenerative changes. No significant disc bulge. The foramina and central canal are patent. L2-L3: No significant disc bulge. The foramina and central canal are patent. L3-L4: Mild endplate degenerative changes. No significant disc bulge. The foramina and central canal are patent. L4-L5: 2 mm grade 1 anterolisthesis with mild diffuse disc bulge. Bilateral facet hypertrophy. The central canal is patent. L5-S1: Diffuse disc bulge. Bilateral facet hypertrophy. Dikb-gx-tpexoort mild foraminal stenosis. The left foramen is patent. The central canal is patent. Treatment Goals Patient/Caregiver Goals improve neck range of motion, be able to turn head for driving, get exercises for back so stronger, be able to walk more for back, build up strength in arms PT-OP-C Subjective Start: 12/28/23 17:30 Freq: Status: Active Protocol: Document 01/10/24 14:34 [facility] (Rec: 01/11/24 13:28 [facility] [id number]) Patient Questionnaires Oswestry Low Back Index Oswestry Score 24/50 PT-OP-G Mobility & Gait Start: 12/28/23 17:30 Freq: Status: Active Protocol: Document 01/10/24 14:34 [facility] (Rec: 01/10/24 15:28 [facility] [id number]) OP Gait Assessment Comments Gait Comments slow, dec push off, lat leaning, fwd bent PT-OP-J Posture/Palpation/Skin Start: 12/28/23 17:30 Freq: Status: Active Protocol: Document 01/10/24 14:34 [facility] (Rec: 01/10/24 15:28 [facility] [id number]) Posture Evaluation Comments Posture Comments inc kyphosis, dec lumbar lordosis, fwd head w/flexed neck. PT-OP-K Range of Motion Start: 12/28/23 17:30 Freq: Status: Active Protocol: Document 01/10/24 14:34 [facility] (Rec: 01/10/24 15:28 [facility] [id number]) Cervical Spine Range of Motion Cervical Spine Active Degrees Flexion 32 Extension 23 Rotation Left 27 Rotation Right 17 Lateral Flexion Left 9 Lateral Flexion Right 8 ROM Limitations Pain Lumbar Spine Range of Motion Lumbar Spine Active Percentage Flexion 25 Extension 5 Rotation Left 10 Rotation Right 10 Lateral Flexion Left 5 Lateral Flexion Right 10 Comments mid shins w/flex-dizzy w/flex; pain w/all ROM PT-OP-L Special Tests Start: 12/28/23 17:30 Freq: Status: Active Protocol: Document 01/10/24 14:34 [facility] (Rec: 01/10/24 15:28 [facility] [id number]) Special Tests Cervical Spine Special Tests compression Test Results inc in discomfort Traction Test Results stretch lat shear Test Results neg Alar Ligament Test Results neg tectoral membrane Test Results neg arterial screen Test Results positional test neg-pain Comments WNL carotid and heart; BP 114/ 69 Lumbar Spine Special Tests Slump Test Results tight in post leg B PT-OP-M Strength Start: 12/28/23 17:30 Freq: Status: Active Protocol: Document 01/10/24 14:34 [facility] (Rec: 01/10/24 15:28 [facility] [id number]) Shoulder Strength Shoulder Manual Muscle Testing Right Flexion 3+ Fair+ Abduction (C5) 3 Fair External Rotation 3+ Fair+ Internal Rotation 4- Good- Left Flexion 3+ Fair+ Abduction (C5) 3+ Fair+ External Rotation 3+ Fair+ Internal Rotation 4- Good- Elbow/Forearm Strength Elbow and Forearm Manual Muscle Testing Right Flexion (C6) 4 Good Extension (C7) 4 Good Left Flexion (C6) 4 Good Extension (C7) 4 Good Hip Strength Hip Manual Muscle Testing Right Flexion (L2) 4- Good- External Rotation 3+ Fair+ Internal Rotation 4- Good- Comments limited ER/IR range Left Flexion (L2) 3+ Fair+ External Rotation 4- Good- Internal Rotation 4- Good- Knee Strength Knee Manual Muscle Testing Right Flexion (S2) 4+ Good+ Extension (L3) 4+ Good+ Left Flexion (S2) 4+ Good+ Extension (L3) 4+ Good+ PT-OP-Q Treatments Start: 12/28/23 17:30 Freq: Status: Active Protocol: Document 01/10/24 14:34 [facility] (Rec: 01/10/24 15:28 [facility] [id number]) Self-Care/Home Management Treatment Education Other Education 8 min: edu to pt re: importance of posture and noting he is more bent over so lack of mobility of tspine likely affecting cervical spine. edu re: how will have to be gentle d/t history of non union at sternum after heart surgery. PT-OP-T Assessment and Plan Start: 12/28/23 17:30 Freq: Status: Active Protocol: Document 01/10/24 14:34 [facility] (Rec: 01/10/24 15:28 [facility] [id number]) Physical Therapy Assessment Rehab Potential Rehabilitation Potential Good Evaluation Complexity Number of Personal Factors/Comorbidities 3 or More Number of Body Systems Impaired 4 or More Clinical Presentation at Evaluation Evolving Impairments Impairments Activity Tolerance,Balance, Functional Activities, Functional Mobility,Gait,Pain, Posture,ROM,Soft Tissue Mobility,Strength Goals activity Recycling Crew Supervisor Goal (LTG) Pt will be able to report starting small walks at least 3 days a week without pain greater than 3/10 LTG Duration 03/18 strength Short Term Goal (STG) Pt will be indep w/HEP STG Duration 02/20 Recycling Crew Supervisor Goal (LTG) Pt will score at least 4/5 on all BUE MMT and LLE MMT and at least 3/5 on LPM to show improved stability. LTG Duration 04/03/24 ROM Short Term Goal (STG) Pt will improve cervical rotation to at least 35 deg B STG Duration 02/21/24 Recycling Crew Supervisor Goal (LTG) Pt will have comfortable ROM of neck in order to allow greater ease w/turning head when driving. LTG Duration 04/03/24 KIRILL Impairment 24/50 Short Term Goal (STG) Pt will have improved KIRILL to no greater than 18/50 to show improved functional ability. STG Duration 02/21/24 Recycling Crew Supervisor Goal (LTG) Pt will have improved KIRILL to no greater than 10/50 to show improved functional ability. LTG Duration 04/03/24 Assessment Summary Assessment Pt presents w/chronic LBPand neck pain w/worsening recently (Oct) where he has lost significant ROM of neck and has difficulty driving d/t this. He does demo this dec ROM w/testing today along w/ core and UE/LE strength deficits likely relating to this pain. He has significant history of injuries to neck and back along w/hx of open heart surgery w/malunion of sternum which will cause need to be gentle w/mobility of spine. He has more fwd flexed posture and it is painful to get upright likely inc his pain when he does try to be active. Pt would benefit from [facility] PT to be able to improve funcitonal mobility during his typical days. Physical Therapy Plan Frequency and Duration Frequency of Treatment 2x/Week Duration of treatment (weeks) 12 Plan of Care Start Date 01/10/24 Plan of Care End Date 04/03/24 Therapeutic Interventions Therapeutic Interventions Balance Training,Gait Training ,Home Exercise Program,Joint Mobilizations,Manual Therapy, Neuromuscular Re-education, Orthotic/Prosthetic Management ,Patient/Caregiver Education, Self-Care/Home Management,Soft Tissue Mobilization,Taping, Therapeutic Activities, Therapeutic Exercises Modalities Cold Pack/Ice Massage,Hot Packs,Infrared Therapy, Ultrasound Next Visit Focus/Plan Next Note Type Treatment Note Next Visit Plan cranial n screen AROM cervical spine, gentle open book, supine LTR, paloff press Manual: work along thoracic spine and gentle to neck
--- NOTE | 2024-01-10 16:43 | PT.OPPOC ---
Physical, Occupational & Speech Therapy At [facility] Current Diagnoses Other chronic pain (01/10/24) Cervicalgia (01/10/24) Dorsalgia, unspecified (01/10/24) Visit Care Team Role Provider Type Edgar Zayas DO Family Provider Physician Primary Care Provider Specialty: Family Practice Address: [address] [place] [address], [id number] Email: [email or web address] Lizy Lucero PA-C Attending Provider Advanced Calibration Laboratory Technician Referring Provider Specialty: Medical Wound Care Address: [address] [place] [address], [id number] Email: [email or web address] Plan Of Care PT-OP-B Current Condition Start: 12/28/23 17:30 Freq: Status: Active Protocol: Document 01/10/24 14:34 [facility] (Rec: 01/10/24 15:28 [facility] [id number]) Current Condition History of Current Condition Onset Date chronic-worse starting sept Current Complaints LBP and neck pain History of Current Condition Pt reports back is still bothering him and did PT last year with some help. Chronic issues but has fallen off exercises. Had a tobogen accident in 1961 and had a pinched n in C6 and immediately had a massive cramp of neck on L. So much so that it put his cervical into a bow and stretched out other side muscles. It gradually got better and he did see a chiro in the past that helped a lot. Over the years, it has been aggrevated and right now it is really bothering him. Found really good chiro. Sept neck got way worse and he feels like he has barely any range. Had a big hit in the head and had injury in 1959. Gets MCMANUS daily (1-5/ 10) almost always frontal. Pt got sun stroke in 2004 when working on top of [employer] for hours and has had MCMANUS since then. Notes dizziness and lightheadness is more common when getting up quickly from bending entire body over. Sense of balance is pretty much gone. did fall when fishing last year.Tripped over a log. Has macular degeneration and getting injections. Uses belt for back to help stability and can walk 200 yards to mailbox/back . If doesn't have it, then has more pain. 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 If uses, arm too much then pays for it for a couple days. 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 L knee has been giving him some trouble and gives out sporadically. Unsure what triggers it. Followed by real time trader and eveerytime does stress test w/treadmill and has severe cramping in neck and back. Prior Treatments and Tests Lumbar xray: Bones: 5 non-rib -bearing vertebrae are present . No vertebral body compression fractures. No suspicious bony lesions. Disc height loss throughout lumbar spine. Mild anterolisthesis of L4 on L5. The previously seen sclerotic lesion within L2 now has a lucent center and appears slightly enlarged cervical xray: Bones: No fractures or dislocations to the T1 level. The lateral masses of C1 appear intact on the odontoid view. No suspicious bony lesions. Multilevel disc height loss with anterior osteophyte formation. lumbar MRI: T12-L1: Mild endplate degenerative changes. No significant disc bulge. The foramina and central canal are patent. L1-L2: Mild endplate degenerative changes. No significant disc bulge. The foramina and central canal are patent. L2-L3: No significant disc bulge. The foramina and central canal are patent. L3-L4: Mild endplate degenerative changes. No significant disc bulge. The foramina and central canal are patent. L4-L5: 2 mm grade 1 anterolisthesis with mild diffuse disc bulge. Bilateral facet hypertrophy. The central canal is patent. L5-S1: Diffuse disc bulge. Bilateral facet hypertrophy. [id number]-[id number] mild foraminal stenosis. The left foramen is patent. The central canal is patent. Treatment Goals Patient/Caregiver Goals improve neck range of motion, be able to turn head for driving, get exercises for back so stronger, be able to walk more for back, build up strength in arms PT-OP-T Assessment and Plan Start: 12/28/23 17:30 Freq: Status: Active Protocol: Document 01/10/24 14:34 [facility] (Rec: 01/10/24 15:28 [facility] [id number]) Physical Therapy Assessment Rehab Potential Rehabilitation Potential Good Evaluation Complexity Number of Personal Factors/Comorbidities 3 or More Number of Body Systems Impaired 4 or More Clinical Presentation at Evaluation Evolving Impairments Impairments Activity Tolerance,Balance, Functional Activities, Functional Mobility,Gait,Pain, Posture,ROM,Soft Tissue Mobility,Strength Goals activity Hvac Mechanic Goal (LTG) Pt will be able to report starting small walks at least 3 days a week without pain greater than 3/10 LTG Duration 03/18 strength Short Term Goal (STG) Pt will be indep w/HEP STG Duration 02/20 Hvac Mechanic Goal (LTG) Pt will score at least 4/5 on all BUE MMT and LLE MMT and at least 3/5 on LPM to show improved stability. LTG Duration 04/03/24 ROM Short Term Goal (STG) Pt will improve cervical rotation to at least 35 deg B STG Duration 02/21/24 Hvac Mechanic Goal (LTG) Pt will have comfortable ROM of neck in order to allow greater ease w/turning head when driving. LTG Duration 04/03/24 KIRILL Impairment 24/50 Short Term Goal (STG) Pt will have improved KIRILL to no greater than 18/50 to show improved functional ability. STG Duration 02/21/24 Snf Goal (LTG) Pt will have improved KIRILL to no greater than 10/50 to show improved functional ability. LTG Duration 04/03/24 Assessment Summary Assessment Pt presents w/chronic LBPand neck pain w/worsening recently (Oct) where he has lost significant ROM of neck and has difficulty driving d/t this. He does demo this dec ROM w/testing today along w/ core and UE/LE strength deficits likely relating to this pain. He has significant history of injuries to neck and back along w/hx of open heart surgery w/malunion of sternum which will cause need to be gentle w/mobility of spine. He has more fwd flexed posture and it is painful to get upright likely inc his pain when he does try to be active. Pt would benefit from [facility] PT to be able to improve funcitonal mobility during his typical days. Physical Therapy Plan Frequency and Duration Frequency of Treatment 2x/Week Duration of treatment (weeks) 12 Plan of Care Start Date 01/10/24 Plan of Care End Date 04/03/24 Therapeutic Interventions Therapeutic Interventions Balance Training,Gait Training ,Home Exercise Program,Joint Mobilizations,Manual Therapy, Neuromuscular Re-education, Orthotic/Prosthetic Management ,Patient/Caregiver Education, Self-Care/Home Management,Soft Tissue Mobilization,Taping, Therapeutic Activities, Therapeutic Exercises Modalities Cold Pack/Ice Massage,Hot Packs,Infrared Therapy, Ultrasound Next Visit Focus/Plan Next Note Type Treatment Note Next Visit Plan cranial n screen AROM cervical spine, gentle open book, supine LTR, paloff press Manual: work along thoracic spine and gentle to neck Plan of Care Dates Plan of Care Start Date 01/10/24 Plan of Care End Date 04/03/24 Electronically Signed by: Claudia Hanna, PT 01/11/24 [id number] If you are in agreement with this Plan of Care, please return a signed and dated copy. I have reviewed this Plan of Care and certify that the skilled therapy services above are required to meet the patient?s needs. Physician Signature Date Printed Name and Credentials Clinical Instructor Signature Printed Name and Credentials
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
--- NOTE | 2024-02-26 18:07 | PT.OTN ---
Current Diagnoses Other chronic pain (02/26/24) Cervicalgia (02/26/24) Dorsalgia, unspecified (02/26/24) Physical Therapy Treatment Note PT-OP-A Visit Information Start: 12/28/23 17:30 Freq: Status: Active Protocol: Document 02/26/24 13:02 [facility] (Rec: 02/26/24 13:15 [facility] [id number]) Out-Patient Physical Therapy Visit Information Visit Information Visit Type Treatment Note Visit Note Visit [email or web address] Access Code: [email or web address] Visit Start Time 13:03 Visit Stop Time 13:43 Visit Number 12 Number of HUMAN RESOURCES COORDINATOR Visits 0 PT-OP-B Current Condition Start: 12/28/23 17:30 Freq: Status: Active Protocol: Document 01/10/24 14:34 [facility] (Rec: 01/10/24 15:28 [facility] [id number]) Current Condition History of Current Condition Onset Date chronic-worse starting sept Current Complaints LBP and neck pain History of Current Condition Pt reports back is still bothering him and did PT last year with some help. Chronic issues but has fallen off exercises. Had a tobogen accident in 196 and had a pinched n in C6 and immediately had a massive cramp of neck on L. So much so that it put his cervical into a bow and stretched out other side muscles. It gradually got better and he did see a chiro in the past that helped a lot. Over the years, it has been aggrevated and right now it is really bothering him. Found really good chiro. Sept neck got way worse and he feels like he has barely any range. Had a big hit in the head and had injury in 195. Gets MCMANUS daily (1-5 10) almost always frontal. 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 Notes dizziness and lightheadness is more common when getting up quickly from bending entire body over. Sense of balance is pretty much gone. did fall when fishing last year.Tripped over a log. Has macular degeneration and getting injections. Uses belt for back to help stability and can walk 200 yards to mailbox/back . If doesn't have it, then has more pain. 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 If uses, arm too much then pays for it for a couple days. 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 L knee has been giving him some trouble and gives out sporadically. Unsure what triggers it. Followed by water filter cleaner and eveerytime does stress test w/treadmill and has severe cramping in neck and back. Prior Treatments and Tests Lumbar xray: Bones: 5 non-rib -bearing vertebrae are present . No vertebral body compression fractures. No suspicious bony lesions. Disc height loss throughout lumbar spine. Mild anterolisthesis of L4 on L5. The previously seen sclerotic lesion within L2 now has a lucent center and appears slightly enlarged cervical xray: Bones: No fractures or dislocations to the T1 level. The lateral masses of C1 appear intact on the odontoid view. No suspicious bony lesions. Multilevel disc height loss with anterior osteophyte formation. lumbar MRI: T12-L1: Mild endplate degenerative changes. No significant disc bulge. The foramina and central canal are patent. L1-L2: Mild endplate degenerative changes. No significant disc bulge. The foramina and central canal are patent. L2-L3: No significant disc bulge. The foramina and central canal are patent. L3-L4: Mild endplate degenerative changes. No significant disc bulge. The foramina and central canal are patent. L4-L5: 2 mm grade 1 anterolisthesis with mild diffuse disc bulge. Bilateral facet hypertrophy. The central canal is patent. L5-S1: Diffuse disc bulge. Bilateral facet hypertrophy. [id number] mild foraminal stenosis. The left foramen is patent. The central canal is patent. Treatment Goals Patient/Caregiver Goals improve neck range of motion, be able to turn head for driving, get exercises for back so stronger, be able to walk more for back, build up strength in arms PT-OP-C Subjective Start: 12/28/23 17:30 Freq: Status: Active Protocol: Document 02/26/24 13:02 [facility] (Rec: 02/26/24 13:15 [facility] [id number]) OP-PT Subjective Patient Comments Patient Comments Pt reports he has been awake between 3 and 4 in AM d/t MCMANUS and that started about 1 week ago. Frontal MCMANUS are constant and that has been fro prior to PT Patient Reported Progress Worse PT-OP-G Mobility & Gait Start: 12/28/23 17:30 Freq: Status: Active Protocol: Document 01/10/24 14:34 [facility] (Rec: 01/10/24 15:28 [facility] [id number]) OP Gait Assessment Comments Gait Comments slow, dec push off, lat leaning, fwd bent PT-OP-J Posture/Palpation/Skin Start: 12/28/23 17:30 Freq: Status: Active Protocol: Document 02/26/24 13:02 [facility] (Rec: 02/26/24 13:23 [facility] [id number]) Posture Evaluation [facility] Postural Classification System Lumbar Protective Mechanism Left AP 1 Lumbar Protective Mechanism Right AP 2 Lumbar Protective Mechanism Left PA 1 Lumbar Protective Mechanism Right PA 1 PT-OP-K Range of Motion Start: 12/28/23 17:30 Freq: Status: Active Protocol: Document 02/26/24 13:02 [facility] (Rec: 02/26/24 13:23 [facility] [id number]) Cervical Spine Range of Motion Cervical Spine Active Degrees Flexion 44 Extension 22 Rotation Left 24 Rotation Right 42 Lateral Flexion Left 12 Lateral Flexion Right 13 ROM Limitations Pain PT-OP-L Special Tests Start: 12/28/23 17:30 Freq: Status: Active Protocol: Document 01/15/24 11:36 [facility] (Rec: 01/15/24 12:33 [facility] [id number]) Special Tests Cervical Spine Special Tests cranial n screen Test Results WNL except L pupil no constriction but old injury and has seen MD re: PT-OP-M Strength Start: 12/28/23 17:30 Freq: Status: Active Protocol: Document 02/26/24 13:02 [facility] (Rec: 02/26/24 13:23 [facility] [id number]) Shoulder Strength Shoulder Manual Muscle Testing Right Flexion 4+ Good+ Extension 5 Normal Abduction (C5) 4+ Good+ External Rotation 4+ Good+ Internal Rotation 5 Normal Left Flexion 5 Normal Extension 5 Normal Abduction (C5) 4+ Good+ External Rotation 4+ Good+ Internal Rotation 5 Normal Hip Strength Hip Manual Muscle Testing Right Flexion (L2) 4+ Good+ External Rotation 5 Normal Internal Rotation 5 Normal Comments limited ER/IR range Left Flexion (L2) 4 Good External Rotation 5 Normal Internal Rotation 5 Normal Knee Strength Knee Manual Muscle Testing Right Flexion (S2) 4+ Good+ Extension (L3) 4+ Good+ Left Flexion (S2) 4+ Good+ Extension (L3) 4+ Good+ PT-OP-Q Treatments Start: 12/28/23 17:30 Freq: Status: Active Protocol: Document 02/26/24 13:02 [facility] (Rec: 02/26/24 13:23 [facility] [id number]) Therapeutic Exercises Sitting Exercises isometrics Sitting Exercise Name UE & LE MMT & standing LPM B Side bilateral AROM Sitting Exercise Name cervical side bend holding chair Side bilateral Reps/Minutes 5-10 sec hold X 10 Comments verbal and visual cues Manual Therapy Treatment Consent Patient gave verbal consent for manual Yes treatment Soft Tissue Mobilization posterior Body Location B lumbar paraspinals & QL Mobilization Type Rolling Intensity/Depth Moderate Body Position Sidelying Joint Mobilizations sacrum Joint gentle distraction Grade II Body Position Sidelying Self-Care/Home Management Treatment Education Other Education 15 min: pt educated on stopping exercises d/t inc pain in past week for at least 3-4 days and then gradually inc 1-2 in every couple of days and making sure they are not inc pain. Discussed dec frequency of PT and to follow up w/MD re: further imaging of neck or referral to youth development specialist may be beneficial PT-OP-T Assessment and Plan Start: 12/28/23 17:30 Freq: Status: Active Protocol: Document 02/26/24 13:02 [facility] (Rec: 02/26/24 13:15 [facility] [id number]) Physical Therapy Assessment Goals activity Assisted Goal (LTG) Pt will be able to report starting small walks at least 3 days a week without pain greater than 3/10 02/04-has started a few; doing the exercise bike occasionally 02/12/2024 Patient reports walking very minimally, 200 yards to mail box with increased back pain. 02/25-no recent walks LTG Duration 03/18 strength Short Term Goal (STG) Pt will be indep w/HEP STG Duration achieved advancing as able Cargo Surveyor Goal (LTG) Pt will score at least 4/5 on all BUE MMT and LLE MMT and at least 3/5 on LPM to show improved stability. 02/04-improving LTG Duration 04/03/24 ROM Short Term Goal (STG) Pt will improve cervical rotation to at least 35 deg B 02/04-limited since set back 02/25-still dec but recent set back-following up w/imaging STG Duration 02/21/24 Assisted Goal (LTG) Pt will have comfortable ROM of neck in order to allow greater ease w/turning head when driving. LTG Duration 04/03/24 KIRILL Impairment Short Term Goal (STG) Pt will have improved KIRILL to no greater than 18/50 to show improved functional ability. 02/04- improved 02/25-n/t STG Duration 02/21/24 Cargo Surveyor Goal (LTG) Pt will have improved KIRILL to no greater than 10/50 to show improved functional ability. LTG Duration 04/03/24 Assessment Summary Assessment Pt had recent set back again w /inc MCMANUS into temporal area that wakes him every night. Pt is getting CT scan once approved by insurance and did message MD about getting further imaging of his neck also. At this time, plan to focus on back also for hip and core stability to improve gait and activity tolerance and adjunct with neck care as able as pt cont to lack ROM especially to L and w/ext that worsened in the past couple of weeks. COnt PT to improve mobility. Physical Therapy Plan Frequency and Duration Frequency of Treatment 2x/Week Duration of treatment (weeks) 12 Plan of Care Start Date 01/10/24 Plan of Care End Date 04/03/24 Therapeutic Interventions Therapeutic Interventions Balance Training,Gait Training ,Home Exercise Program,Joint Mobilizations,Manual Therapy, Neuromuscular Re-education, Orthotic/Prosthetic Management ,Patient/Caregiver Education, Self-Care/Home Management,Soft Tissue Mobilization,Taping, Therapeutic Activities, Therapeutic Exercises Modalities Cold Pack/Ice Massage,Hot Packs,Infrared Therapy, Ultrasound Next Visit Focus/Plan Next Note Type Treatment Note Next Visit Plan gently progress exercises back , work on gentle pain relief
--- NOTE | 2024-02-28 13:58 | PT.OTN ---
Current Diagnoses Other chronic pain (02/28/24) Cervicalgia (02/28/24) Dorsalgia, unspecified (02/28/24) Physical Therapy Treatment Note PT-OP-A Visit Information Start: 12/28/23 17:30 Freq: Status: Active Protocol: Document 02/28/24 13:10 [facility] (Rec: 02/28/24 13:57 [facility] [id number]) Out-Patient Physical Therapy Visit Information Visit Information Visit Type Treatment Note Visit Note Visit [email or web address] Access Code: [email or web address] Visit Start Time 13:06 Visit Stop Time 13:46 Visit Number 13 Number of CALL CENTER RN Visits 0 PT-OP-B Current Condition Start: 12/28/23 17:30 Freq: Status: Active Protocol: Document 01/10/24 14:34 [facility] (Rec: 01/10/24 15:28 [facility] [id number]) Current Condition History of Current Condition Onset Date chronic-worse starting sept Current Complaints LBP and neck pain History of Current Condition Pt reports back is still bothering him and did PT last year with some help. Chronic issues but has fallen off exercises. Had a tobogen accident in 196 and had a pinched n in C6 and immediately had a massive cramp of neck on L. So much so that it put his cervical into a bow and stretched out other side muscles. It gradually got better and he did see a chiro in the past that helped a lot. Over the years, it has been aggrevated and right now it is really bothering him. Found really good chiro. Sept neck got way worse and he feels like he has barely any range. Had a big hit in the head and had injury in 195. Gets MCMANUS daily (1-5 10) almost always frontal. 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 Notes dizziness and lightheadness is more common when getting up quickly from bending entire body over. Sense of balance is pretty much gone. did fall when fishing last year.Tripped over a log. Has macular degeneration and getting injections. Uses belt for back to help stability and can walk 200 yards to mailbox/back . If doesn't have it, then has more pain. 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 If uses, arm too much then pays for it for a couple days. 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 L knee has been giving him some trouble and gives out sporadically. Unsure what triggers it. Followed by art therapy certified supervisor and eveerytime does stress test w/treadmill and has severe cramping in neck and back. Prior Treatments and Tests Lumbar xray: Bones: 5 non-rib -bearing vertebrae are present . No vertebral body compression fractures. No suspicious bony lesions. Disc height loss throughout lumbar spine. Mild anterolisthesis of L4 on L5. The previously seen sclerotic lesion within L2 now has a lucent center and appears slightly enlarged cervical xray: Bones: No fractures or dislocations to the T1 level. The lateral masses of C1 appear intact on the odontoid view. No suspicious bony lesions. Multilevel disc height loss with anterior osteophyte formation. lumbar MRI: T12-L1: Mild endplate degenerative changes. No significant disc bulge. The foramina and central canal are patent. L1-L2: Mild endplate degenerative changes. No significant disc bulge. The foramina and central canal are patent. L2-L3: No significant disc bulge. The foramina and central canal are patent. L3-L4: Mild endplate degenerative changes. No significant disc bulge. The foramina and central canal are patent. L4-L5: 2 mm grade 1 anterolisthesis with mild diffuse disc bulge. Bilateral facet hypertrophy. The central canal is patent. L5-S1: Diffuse disc bulge. Bilateral facet hypertrophy. [id number] mild foraminal stenosis. The left foramen is patent. The central canal is patent. Treatment Goals Patient/Caregiver Goals improve neck range of motion, be able to turn head for driving, get exercises for back so stronger, be able to walk more for back, build up strength in arms PT-OP-C Subjective Start: 12/28/23 17:30 Freq: Status: Active Protocol: Document 02/28/24 13:10 [facility] (Rec: 02/28/24 13:57 [facility] [id number]) OP-PT Subjective Patient Comments Patient Comments Pt reports he tried the wedge last night and had a bad MCMANUS early in the AM PT-OP-G Mobility & Gait Start: 12/28/23 17:30 Freq: Status: Active Protocol: Document 01/10/24 14:34 [facility] (Rec: 01/10/24 15:28 [facility] [id number]) OP Gait Assessment Comments Gait Comments slow, dec push off, lat leaning, fwd bent PT-OP-J Posture/Palpation/Skin Start: 12/28/23 17:30 Freq: Status: Active Protocol: Document 02/26/24 13:02 [facility] (Rec: 02/26/24 13:23 [facility] [id number]) Posture Evaluation [facility] Postural Classification System Lumbar Protective Mechanism Left AP 1 Lumbar Protective Mechanism Right AP 2 Lumbar Protective Mechanism Left PA 1 Lumbar Protective Mechanism Right PA 1 PT-OP-K Range of Motion Start: 12/28/23 17:30 Freq: Status: Active Protocol: Document 02/26/24 13:02 [facility] (Rec: 02/26/24 13:23 [facility] [id number]) Cervical Spine Range of Motion Cervical Spine Active Degrees Flexion 44 Extension 22 Rotation Left 24 Rotation Right 42 Lateral Flexion Left 12 Lateral Flexion Right 13 ROM Limitations Pain PT-OP-L Special Tests Start: 12/28/23 17:30 Freq: Status: Active Protocol: Document 01/15/24 11:36 [facility] (Rec: 01/15/24 12:33 [facility] [id number]) Special Tests Cervical Spine Special Tests cranial n screen Test Results WNL except L pupil no constriction but old injury and has seen MD re: PT-OP-M Strength Start: 12/28/23 17:30 Freq: Status: Active Protocol: Document 02/26/24 13:02 [facility] (Rec: 02/26/24 13:23 [facility] [id number]) Shoulder Strength Shoulder Manual Muscle Testing Right Flexion 4+ Good+ Extension 5 Normal Abduction (C5) 4+ Good+ External Rotation 4+ Good+ Internal Rotation 5 Normal Left Flexion 5 Normal Extension 5 Normal Abduction (C5) 4+ Good+ External Rotation 4+ Good+ Internal Rotation 5 Normal Hip Strength Hip Manual Muscle Testing Right Flexion (L2) 4+ Good+ External Rotation 5 Normal Internal Rotation 5 Normal Comments limited ER/IR range Left Flexion (L2) 4 Good External Rotation 5 Normal Internal Rotation 5 Normal Knee Strength Knee Manual Muscle Testing Right Flexion (S2) 4+ Good+ Extension (L3) 4+ Good+ Left Flexion (S2) 4+ Good+ Extension (L3) 4+ Good+ PT-OP-Q Treatments Start: 12/28/23 17:30 Freq: Status: Active Protocol: Document 02/28/24 13:10 [facility] (Rec: 02/28/24 13:57 [facility] [id number]) Therapeutic Exercises Supine Exercises bridge Supine Exercise Name attempted but cramped each rep so stopped single knee to chest Supine Exercise Name 1. SKTC 2. piriformis knee to opp chest 3.active HS stretch Side bilateral Reps/Minutes 1 &2. 1 min ea 3. 6 sec x6 Comments inc time for set up and position LTR Side bilateral Reps/Minutes 5sec x10 ea Comments cues core and comfortable range Standing Exercises hip abd Side bilateral Equipment Used lvl 1 Reps/Minutes 15 Comments cuescore and not lat leaning and control sit to stand Side bilateral Equipment Used 20 in plinth Reps/Minutes X10 Comments cues for glute hip extension Standing Exercise Name on forearms on elevated plinth Side bilateral Equipment Used lvl 1 Reps/Minutes 10 ea Comments cues core Manual Therapy Treatment Consent Patient gave verbal consent for manual Yes treatment Soft Tissue Mobilization posterior Body Location B lumbar paraspinals & QL Mobilization Type Rolling Intensity/Depth Moderate Body Position Hooklying Comments LTR Joint Mobilizations hip Comments L inf c/r PT-OP-T Assessment and Plan Start: 12/28/23 17:30 Freq: Status: Active Protocol: Document 02/28/24 13:10 [facility] (Rec: 02/28/24 13:57 [facility] [id number]) Physical Therapy Assessment Goals activity Shelter Goal (LTG) Pt will be able to report starting small walks at least 3 days a week without pain greater than 3/10 02/04-has started a few; doing the exercise bike occasionally 02/12/2024 Patient reports walking very minimally, 200 yards to mail box with increased back pain. 02/25-no recent walks LTG Duration 03/18 strength Short Term Goal (STG) Pt will be indep w/HEP STG Duration achieved advancing as able Shelter Goal (LTG) Pt will score at least 4/5 on all BUE MMT and LLE MMT and at least 3/5 on LPM to show improved stability. 02/04-improving LTG Duration 04/03/24 ROM Short Term Goal (STG) Pt will improve cervical rotation to at least 35 deg B 02/04-limited since set back 02/25-still dec but recent set back-following up w/imaging STG Duration 02/21/24 Shelter Goal (LTG) Pt will have comfortable ROM of neck in order to allow greater ease w/turning head when driving. LTG Duration 04/03/24 KIRILL Impairment 24 Short Term Goal (STG) Pt will have improved KIRILL to no greater than 18/50 to show improved functional ability. 02/04- improved 02/25-n/t STG Duration 02/21/24 Shelter Goal (LTG) Pt will have improved KIRILL to no greater than 10/50 to show improved functional ability. LTG Duration 04/03/24 Assessment Summary Assessment Pt had no inc pain w/new exercises today but did feel glute engagement w/standing exercises. improved lumbar rotation after manual. Physical Therapy Plan Frequency and Duration Frequency of Treatment 2x/Week Duration of treatment (weeks) 12 Plan of Care Start Date 01/10/24 Plan of Care End Date 04/03/24 Next Visit Focus/Plan Next Note Type Treatment Note Next Visit Plan gently progress exercises back when ready, focus on core for LBP, work on gentle pain relief
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
--- NOTE | 2024-03-27 12:00 | PT-OP ANOTE ---
Pt attempted 2x to be called re: no show but pt could not hear PT despite PT trying on 2 different phones. Text message sent re: no show and no further appts left asking pt what his plan is. Pt given number to call back. He did respond to text for confirmation w/( david instead of Y or N so he may have accidentally hit the wrong bell when sent the confirmation.
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
== END 2024-04-04 11:33 | disposition home or self-care (01) ==
LOC: PHYS 13:45
PROVIDERS: Family Provider Family Medicine; PCP Family Medicine; Referring Provider Physician Assistant; Visit Provider Physician Assistant
DX: M54.9 Dorsalgia, unspecified (principal); G89.29 Other chronic pain; M54.2 Cervicalgia
CPT/HCPCS: 97110; 97112; 97140; 97162; 97530; 97535

== ENCOUNTER → 2024-05-29 07:31 | Outpatient (CLI) | payer OTHER, SELFPAY ==
[2023-04-12 13:18] VITALS: BMI 30.1
[2024-05-29 08:14] LABS: Hematocrit 41.8 % (41-53); Hemoglobin 14.2 g/dL (13.5-17.5); Mean Corpuscular HGB Conc 33.9 % (30-36); Mean Corpuscular Hemoglobin 32.2 PG (26-34); Mean Corpuscular Volume 94.9 fL (80-100); Platelet Count 196 X10^3/uL (150-400); Red Blood Cell Count 4.41 X10^6/uL (4.5-5.9); Red Cell Distribution Width 13.2 % (11.6-14.8)
[2024-05-29 08:22] LABS: BUN Creatinine Ratio 15.7 (6-22); Blood Urea Nitrogen 13 mg/dL (9-20); Calcium 9.5 mg/dL (8.4-10.2); Carbon Dioxide 28 mmol/L (22-32); Chloride 100 mmol/L (98-107); Cholesterol 125 mg/dL (140-199); Estimated Glomerular Filt Rate > 60 mL/min (>60); Glucose 99 mg/dL (70-99); HDL Cholesterol 42 mg/dL (40-60); HEMOLYSIS < 15 (0-50); LDL Cholesterol Calculated 71 mg/dL (<100); Potassium 4.3 mmol/L (3.4-5.1); Sodium 135 mmol/L (137-145); Triglycerides 61 mg/dL (35-150)
== END ==
PROVIDERS: Family Provider Family Medicine; PCP Family Medicine; Referring Provider Internal Medicine Cardiovascular Disease; Visit Provider Internal Medicine Cardiovascular Disease
DX: I25.10 Atherosclerotic heart disease of native coronary artery without angina pectoris (principal)
CPT/HCPCS: 36415; 80048; 80061; 85027

== ENCOUNTER → 2024-09-11 17:00 | Outpatient (CLI) | payer OTHER, SELFPAY ==
[2023-04-12 13:18] VITALS: BMI 30.1
[2024-09-11 17:17] LABS: Appearance Urine UA CLEAR; Bilirubin Urine UA NEGATIVE (NEGATIVE); Color Urine UA YELLOW; Glucose Urine UA NEGATIVE (Negative); Ketones Urine UA NEGATIVE (NEGATIVE); Leukocyte Esterase Urine UA NEGATIVE (NEGATIVE); Nitrite Urine UA NEGATIVE (Negative); Occult Blood Urine UA TRACE-INTACT (Negative); Protein Urine UA NEGATIVE (Negative); Specific Gravity Urine UA 1.010 (1.000-1.035); Urobilinogen Urine UA 0.2 E.U./dL (0.2); pH Urine UA 6.0 (4.5-8.0)
[2024-09-11 17:25] LABS: Culture Indicated Urine Cult Not Indicated
== END ==
PROVIDERS: Family Provider Family Medicine; PCP Family Medicine; Referring Provider Urology; Visit Provider Urology
DX: R39.9 Unspecified symptoms and signs involving the genitourinary system (principal)
CPT/HCPCS: 81001